=== PATIENT | female | born 1935 | race Caucasian/White ===

== ENCOUNTER 2018-07-08 08:20 | Inpatient (IN) | payer MEDICARE ==
[2018-07-08 08:47] LABS: #Basophils 0.1 thou/uL (0.0-0.2); #Lymphocytes 0.6 thou/uL (1.20-3.40); #Monocytes 1.4 thou/uL (0.11-0.59); #Neutrophils 15.7 thou/uL (1.40-6.50); %Basophils 0.4 % (0.0-1.0); %Lymphocytes 3.3 % (21.0-51.0); %Monocytes 7.8 % (0.0-10.0); %Neutrophils 88.5 % (42.0-75.0); Mean Corpuscular HGB CONC 31.9 g/dL (32.0-36.0); Mean Corpuscular Hemoglobin 30.1 pg (27.0-31.0); Mean Corpuscular Volume 94.3 fL (78.0-98.0); Mean Platelet Volume 7.6 fL (7.4-10.4); Platelet Count 237 thou/uL (130-400); RBC Distribution Width 11.2 % (11.5-14.5); Red Blood Cell (RBC) Count 4.98 mill/uL (4.20-5.40); White Blood Cell (WBC) Count 17.7 thou/uL (4.8-10.8)
[2018-07-08] MEDS ORDERED: HYDROcodone/Acetaminophen 5/325 mg Tablet ONE (09:12)
[2018-07-08 09:19] LABS: CKMB 2.3 ng/mL (0-6.6); Troponin I Less than 0.010 ng/mL (< 0.028)
--- NOTE | 2018-07-08 09:21 | RAD ---
FRONTAL VIEW CHEST: INDICATION: Cough. FINDINGS: Lungs are hyperinflated. There is diffuse interstitial prominence as well as patchy opacity of the l ower lung zones. Mild left pleural effusion is present. There is enlargement of the cardiac silhoue tte and pulmonary vasculature. Reference is made to 09/17/2011 and 02/05/2015 chest radiographs. IMPRESSION: 1. Findings favor bilateral pneumonia, notably at the lower lung zones, with an associated small lef t pleural effusion. Recommend followup with 2-view chest to confirm resolution. 2. Chronic obstructive pulmonary disease. POS: [facility]
[2018-07-08] MEDS ORDERED: Acetaminophen 500 MG TAB ONE (09:23)
[2018-07-08 09:47] LABS: ALT (SGPT) 60 U/L (8-55); AST (SGOT) 78 U/L (5-34); Alkaline Phosphatase 110 U/L (40-150); Anion Gap 15 mmol/L (10-20); BUN (Urea Nitrogen) 11 mg/dL (9.8-20.1); Bilirubin, Total 1.1 mg/dL (0.2-1.2); Calc. Creatinine Clearance 0 mL/min (70-130); Carbon Dioxide 29 mmol/L (23-31); Chloride 90 mmol/L (98-107); Estimated GFR-MDRD 75; Globulin 3.8 g/dL (2.4-3.5); Glucose 109 mg/dL (83-110); Potassium 4.4 mmol/L (3.5-5.1); Protein, Total 7.8 g/dL (6.0-8.3); Sodium 130 mmol/L (136-145)
[2018-07-08] MEDS ORDERED: Albuterol Sulfate 2.5 mg/3 ml Neb ONE (09:55)
[2018-07-08] MEDS ORDERED: Amlodipine 5 MG TAB PO PRN (11:29)
[2018-07-08] MEDS ORDERED: Guaifenesin DM 100-10/5 ML UDCUP PO PRN (11:29)
[2018-07-08 12:38] LABS: Troponin I Less than 0.010 ng/mL (< 0.028)
--- NOTE | 2018-07-08 15:08 | HP ---
REASON FOR ADMISSION: Chronic obstructive pulmonary disease exacerbation, atrial fibrillation with rapid ventricular response. HISTORY OF PRESENT ILLNESS: The patient gives history of cough with expectoration of yellow sputum, which started around 3 weeks back. This has turned into green. She started developing severe shortness of breath. The patient is also feeling cold sweats and fever. As this was ongoing, the patient got concerned, hence came to emergency room. No complaints of chest pain. On arrival, the patient was found to be in atrial fibrillation with RVR. She has known history of atrial fibrillation. She is on home oxygen, 2 liters. The patient also takes albuterol nebulization 4 times daily at home. Of late, she is not following up with any electronic security specialist, as her electronic security specialist retired. PAST MEDICAL AND SURGICAL HISTORY: Last hospitalization was in 2011; hypertension; chronic atrial fibrillation; COPD, which is oxygen dependent; history of coronary artery disease with catheterization done in 03/[address] Ward; hemorrhoidectomy; rhinoplasty; hysterectomy. CURRENT MEDICATIONS: The patient is on Lasix 20 mg daily, potassium chloride 10 mEq p.o. daily, Eliquis 2.5 mg p.o. twice daily, aspirin 81 mg p.o. daily, metoprolol 12.5 mg twice daily, Cartia extended release 240 mg p.o. daily, CoQ10 200 mg p.o. daily, magnesium 400 mg p.o. daily, Probiotic daily. ALLERGIES: Allergic to ALENDRONATE, ATORVASTATIN, CODEINE, LIDOCAINE, PENICILLIN, PRAVASTATIN, and ADHESIVES. PERSONAL HISTORY: Quit smoking in 2017, has smoked for nearly 50 years. Does not abuse alcohol or drugs. Lives with her . FAMILY HISTORY: Mother at the age of 92 years from old age/natural causes. Father at the age of 61 years. He has had [place]. The patient lives with her with whom she is for nearly 66 years now. CODE STATUS: FULL. The patient has a living will. Power of collections attorney is her and her daughter. REVIEW OF SYSTEMS: The following complete review of systems was negative, unless otherwise mentioned in the HPI or below: Constitutional: Weight loss or gain, ability to conduct usual activities. Skin: Rash, itching. Eyes: Double vision, pain. ENT/Mouth: Nose bleeding, neck stiffness, pain, tenderness. Cardiovascular: Palpitations, dyspnea on exertion, orthopnea. Respiratory: Shortness of breath, wheezing, cough, hemoptysis, fever, or night sweats. Gastrointestinal: Poor appetite, abdominal pain, heartburn, nausea, vomiting, constipation, or diarrhea. Genitourinary: Urgency, frequency, dysuria, nocturia. Musculoskeletal: Pain, swelling. Neurologic/Psychiatric: Anxiety, depression. Allergy/Immunologic: Skin rash, bleeding tendency. PHYSICAL EXAMINATION: GENERAL: The patient is an 82-year-old female, who is currently in mild respiratory distress. VITAL SIGNS: Blood pressure 134/76, pulse 94 per minute, respiratory rate 36 per minute, temperature 97.8 degrees Fahrenheit, saturating 91% on room air. NECK: Supple, no elevated JVD. HEENT: Eyes, extraocular muscles intact. Pupils reacting to light. Oral cavity mucous membranes are dry. No exudates or congestion. CARDIOVASCULAR SYSTEM: S1 and S2 heard. Irregular rhythm. RESPIRATORY SYSTEM: Air entry 1+ bilateral. Scattered wheezes plus bilateral, rales plus in the basal area. ABDOMEN: Soft, bowel sounds heard. No tenderness, rigidity, or guarding. EXTREMITIES: No peripheral edema or calf tenderness. VASCULAR SYSTEM: Peripheral pulses 1+ bilateral, no ischemic ulcerations or gangrene. CENTRAL NERVOUS SYSTEM: No gross focal deficits noted. Patient is alert, awake , oriented well. PSYCHIATRIC SYSTEM: The patient's mood is euthymic. No hallucinations or delusions. LABORATORY AND X-RAY FINDINGS: EKG done shows atrial fibrillation with RVR at 101 beats per minute. There are questionable Q-waves seen in V1, V2, V3. EKG overall is a poor-quality EKG. White count of 17, H and H 15 and 47, platelet count 237, MCV is 94 with 88% neutrophils. Sodium 130, serum chloride 90, BUN 11, creatinine 0.7, serum glucose 109, AST 78, ALT 60, alkaline phosphatase 110 , total bilirubin 1.1. Troponin x2 negative. CK-MB 2.3. BNP is 331. Influenza A and B antigens are negative. Chest x-ray done shows possible bilateral pneumonia in the lower lung zones with small left pleural effusion, signs of COPD seen. CLINICAL IMPRESSION AND PLAN: The patient will be admitted to telemetry for chronic obstructive pulmonary disease exacerbation, atrial fibrillation with rapid ventricular response with known history of chronic atrial fibrillation and possible mild congestive heart failure exacerbation with diastolic dysfunction. She will be on Levaquin 500 mg IV daily along with Solu-Medrol 20 mg IV q.8 hourly and DuoNeb q.6 hourly. We will split her Cardizem to Cardizem- CD 120 mg twice daily and continue aspirin, Eliquis, Norvasc as before. Lopressor will be 25 mg twice daily. We will place her on home dose of Lasix 20 mg daily as well. Echocardiogram with 2D Doppler for left ventricular function will be obtained and pulmonary consultation with Dr. Snowden, who is project production engineer, and cardiology consultation with Dr. Brown will be obtained. Patient's functional status is good and does not use any ambulatory devices at home. She is cachectic lady with weighing nearly 43-44 kilos and has been progressively losing weight per patient. The patient likely has end-stage chronic obstructive pulmonary disease, which is oxygen dependent. She has smoked most of her life. The patient initially wanted to be a DNR, but changed her mind after talking to her daughter at bedside. She apparently has a living will and we will try to obtain the same. JOE
[2018-07-08] MEDS ORDERED: Sodium Chloride 0.9% 10 ML ONE ×2 (15:35→17:38)
[2018-07-08 16:05] LABS: Troponin I Less than 0.010 ng/mL (< 0.028)
[2018-07-08] MEDS: Acetaminophen 325 MG TAB PO PRN (17:57)
[2018-07-08] MEDS: cefTRIAXone\\ROCEPHIN 2 GM in Sodium Chloride 0.9% 100 ML IVPB SCH (18:07)
--- NOTE | 2018-07-08 18:22 | CON ---
DATE OF CONSULTATION: 07/08/2018 HISTORY: Ms. Zamora is a very pleasant woman who says she has been feeling poorly for 3 weeks. She said she had green and yellow drainage out of her nose. Eventually, it just started moving down into her chest. Her primary care physician called in a Z-Sal last week which did not help at all. The Z- Sal was also called in for her spouse who improved after the Z-Sal. She has a history of COPD and has been followed by Dr. Whatley [facility]. She also has a history of atrial fibrillation and coronary artery disease followed by Dr. Ward. PAST MEDICAL HISTORY: 1. Otherwise remarkable for chronic respiratory failure on home oxygen. 2. Hemorrhoidectomy. 3. Rhinoplasty. 4. Hysterectomy. SOCIAL HISTORY: She quit smoking only last year. She is not a drinker. She has been for many years. Her is in the room with her daughter. ALLERGIES: She reports allergies to FOSAMAX, ATORVASTATIN, CODEINE, LIDOCAINE, PENICILLIN, PRAVASTATIN. FAMILY HISTORY: Positive for longevity in her mother. Father with coronary artery disease in his 60s. REVIEW OF SYSTEMS: Ten point review of systems completed, otherwise negative. She had purulent bloody nasal discharge, but has not had any hemoptysis. She denies pleurisy. PHYSICAL EXAMINATION: VITAL SIGNS: On exam, she is afebrile, heart rates have has been 97-106, afternoon respiratory rates in the teens. Oximetry is 90% on 2 liter cannula. Blood pressure 137/76. GENERAL: She appears her age. HEENT: Her pupils are equal. Sclerae anicteric. NECK: Supple. LUNGS: Remarkable for distant breath sounds. She has crackles at her left base laterally than her right. HEART: Irregularly irregular. ABDOMEN: Soft and nontender. EXTREMITIES: Without clubbing, cyanosis or edema. LABORATORY AND X-RAY FINDINGS: Chest radiograph shows bibasilar alveolar infiltrates, a little more prominent on the right. White count 17.7, hemoglobin 15, platelets 237,000. Sodium 130, potassium 4.4, chloride 90, bicarbonate 29, BUN 11, creatinine 0.7, AST 78, ALT 60. IMPRESSION: 1. Community-acquired pneumonia. 2. Underlying chronic obstructive pulmonary disease. 3. Chronic respiratory failure on oxygen at home. She appears comfortable at this time. 4. Atrial fibrillation on Cardizem and Eliquis prior to admission, she is on a low dose of Eliquis. PLAN: I would broaden her antimicrobial coverage. I agree with steroids. Nebulizer treatments probably should be given every 4 hours while she is awake, hopefully to facilitate secretion clearance. This is a 50-minute consult, with greater than 50% of the time was spent on the unit coordinating care. Enjoyed my visit with the patient and her family. JOE
[2018-07-08] MEDS: Famotidine 20 MG TAB PO SCH (20:56)
[2018-07-08] MEDS: Apixaban 2.5 MG TAB PO SCH (20:56)
[2018-07-08] MEDS: Metoprolol Tartrate 25 MG TAB PO SCH (20:56)
--- NOTE | 2018-07-09 01:03 | CON ---
DATE OF CONSULTATION: 07/08/2018 HISTORY OF PRESENT ILLNESS: Nicolasa Zamora is a pleasant 82-year-old white female who was seen by Dr. Burgos in 08/2011. She was admitted with increased palpitations and atrial fibrillation with fast ventricular response. She was found to be hyperthyroid during that admission and also had COPD exacerbation. She was sent home on metoprolol 100 twice a day and propylthiouracil. She was followed up with Dr. Burgos in the office and the last time she was seen there was in 2012. She apparently has seen Dr. Ward. She now presents complaining of 3 weeks of nasal drainage with yellow-green phlegm as well as cough with yellow-green sputum. She then started to develop severe shortness of breath, diaphoresis, fever, and ultimately came to the emergency room. She was found to be in atrial fibrillation. She is on home O2 at 2 liters. PAST MEDICAL HISTORY: Hypertension, chronic atrial fibrillation, COPD, oxygen dependent. She apparently had a cardiac catheterization by Dr. Ward on 2016. OPERATIONS: Hemorrhoidectomy, rhinoplasty and hysterectomy. MEDICATIONS: ProAir 2 puffs q.6 hours p.r.n., Eliquis 2.5 b.i.d., aspirin 81 daily, diltiazem 140 mg q.p.m., furosemide 20 q.a.m., magnesium oxide 2 tablets daily, metoprolol 12.5 b.i.d., potassium chloride one tablet daily and CoQ10 200 mg daily. ALLERGIES: FOSAMAX, LIPITOR, PENICILLIN, PRAVASTATIN, CANS and ADHESIVES. SOCIAL HISTORY: She stopped smoking in 2016. She does not use alcohol. FAMILY HISTORY: Father had myocardial infarction. REVIEW OF SYSTEMS: Twelve point review of systems otherwise unremarkable. PHYSICAL EXAMINATION: VITAL SIGNS: 137/76, pulse 101 and irregularly irregular. HEENT: PERRL. NECK: Supple. CHEST: Reveals expiratory wheezing. CARDIAC: S1 and S2 are normal, without any S3, S4 or murmurs. ABDOMEN: Normal bowel sounds, without tenderness or organomegaly. EXTREMITIES: Revealed no clubbing, cyanosis or edema. NEUROLOGIC: Grossly intact. SKIN: Warm and dry. LABORATORY DATA AND IMAGING DATA: EKG revealed atrial fibrillation with rapid ventricular response of 101 per minute with anteroseptal infarction. White count 17,700, hemoglobin 15.0, hematocrit 47.0, platelets 237,000. Sodium 130, potassium 4.4, chloride 90, carbon dioxide 29, BUN 11, creatinine 0.74. Cardiac enzymes x3 are normal. AST 78, ALT 60. BNP 331.8. Chest x-ray revealed evidence of COPD and bilateral pneumonia. IMPRESSION: 1. Pneumonia, community acquired. 2. Chronic atrial fibrillation. 3. Hypertension. 4. Coronary artery disease on catheterization. PLAN: Patient will be continued on her usual medications. Certainly may require supplemental medicines for better rate control. Echocardiogram will be performed to evaluate left ventricular function. MTDD
[2018-07-09 05:12] LABS: Anion Gap 12 mmol/L (10-20); BUN (Urea Nitrogen) 10 mg/dL (9.8-20.1); Calc. Creatinine Clearance 51 mL/min (70-130); Calcium 8.8 mg/dL (7.8-10.44); Carbon Dioxide 24 mmol/L (23-31); Chloride 95 mmol/L (98-107); Estimated GFR-MDRD Greater than 90; Glucose 131 mg/dL (83-110); Potassium 4.7 mmol/L (3.5-5.1); Sodium 126 mmol/L (136-145)
[2018-07-09 05:13] LABS: #Lymphocytes 0.4 thou/uL (1.20-3.40); #Monocytes 0.3 thou/uL (0.11-0.59); #Neutrophils 11.1 thou/uL (1.40-6.50); %Eosinophils 0.1 % (0.0-10.0); %Lymphocytes 3.8 % (21.0-51.0); %Monocytes 2.3 % (0.0-10.0); %Neutrophils 93.8 % (42.0-75.0); Hemoglobin 12.7 g/dL (12.0-16.0); Mean Corpuscular HGB CONC 30.1 g/dL (32.0-36.0); Mean Corpuscular Hemoglobin 29.3 pg (27.0-31.0); Mean Corpuscular Volume 97.3 fL (78.0-98.0); Mean Platelet Volume 7.3 fL (7.4-10.4); Platelet Count 246 thou/uL (130-400); RBC Distribution Width 11.2 % (11.5-14.5); Red Blood Cell (RBC) Count 4.34 mill/uL (4.20-5.40); White Blood Cell (WBC) Count 11.8 thou/uL (4.8-10.8)
[2018-07-09] MEDS ORDERED: Furosemide 20 MG TAB PO SCH (09:00)
[2018-07-09] MEDS: Apixaban 2.5 MG TAB PO SCH ×2 (09:11→22:00)
[2018-07-09] MEDS: Metoprolol Tartrate 25 MG TAB PO SCH ×2 (09:12→22:01)
[2018-07-09] MEDS: Famotidine 20 MG TAB PO SCH ×2 (09:12→22:02)
[2018-07-09] MEDS: Levofloxacin 750 mg/D5W 500 MG in Premix Bag 1 BAG IVPB SCH (09:13)
--- NOTE | 2018-07-09 11:00 | PRG ---
DATE OF SERVICE: 07/09/2018 Ms. Zamora says she feels much better. PHYSICAL EXAMINATION: VITAL SIGNS: She is afebrile, heart rate 95, respiratory rate is 18, oximetry is 94 on 2 liters, blo od pressure 105/61. LUNGS: Lungs were remarkable for faint wheezes. HEART: Regular rhythm. ABDOMEN: Soft. LABORATORY DATA: White count 11.8, hemoglobin 12.7, platelets 246. Sodium 126, potassium 4.7, chlor pao 95, BUN 10, creatinine 0.59. IMPRESSION: 1. Community-acquired pneumonia, likely after a viral illness. 2. Hyponatremia. Her Lasix should be held. A TSH should be checked if this has not been done. Most likely this is SIADH associated with pneumonia. She needs to be fluid restricted if her sodium remains low.
--- NOTE | 2018-07-09 11:36 | PDOC.PN ---
- Subjective Encounter Start Date: 07/09/18 Encounter Start Time: 09:35 Subjective: sob is better, no palpitations or chest pain -: ate her breakfast, says the portion was too much - Objective Resuscitation Status: Resuscitation Status FULL:Full Resuscitation MAR Reviewed: Yes Vital Signs & Weight: Vital Signs (12 hours) Temp Pulse Resp BP Pulse Ox 07/09/18 09:11 95 07/09/18 08:57 98.3 F 18 105/61 94 L 07/09/18 07:41 100 16 92 L 07/09/18 04:00 97.3 F L 96 18 138/63 100 07/09/18 00:00 95 18 108/54 L 100 Weight Weight 105 lb 4.8 oz I&O: 07/08/18 07/09/18 07/10/18 06:59 06:59 06:59 Intake Total 1210 Output Total 650 Balance 560 Result Diagrams: 07/09/18 04:48 07/09/18 04:48 Phys Exam - Physical Examination HEENT: PERRLA, sclera anicteric Neck: no JVD, supple Respiratory: no wheezing rhonchi+ Cardiovascular: no significant murmur, irregular Gastrointestinal: soft, no distention, positive bowel sounds Musculoskeletal: no edema, pulses present Neurological: non-focal, moves all 4 limbs Psychiatric: normal affect, A&O x 3 Dx/Plan (1) PNA (pneumonia) Code(s): J18.9 - PNEUMONIA, UNSPECIFIED ORGANISM Status: Acute Qualifiers: Pneumonia type: due to unspecified organism Laterality: bilateral Lung location: lower lobe of lung Qualified Code(s): J18.1 - Lobar pneumonia, unspecified organism (2) COPD exacerbation Code(s): J44.1 - CHRONIC OBSTRUCTIVE PULMONARY DISEASE W (ACUTE) EXACERBATION Status: Acute Comment: is on home oxygen (3) Atrial fibrillation with RVR Code(s): I48.91 - UNSPECIFIED ATRIAL FIBRILLATION Status: Acute (4) HTN (hypertension) Code(s): I10 - ESSENTIAL (PRIMARY) HYPERTENSION Status: Chronic Qualifiers: Hypertension type: essential hypertension Qualified Code(s): I10 - Essential (primary) hypertension - Plan is on oral cardizem cd bid, asp, eliquis -: levaquin and ceftriaxone, nebs, steroids -: PT to mobilize as tolerated -: off lasix, echo pending -: hemostable, clinically pt is doing better * . Review of Systems - Medications/Allergies Allergies/Adverse Reactions: Allergies Allergy/AdvReac Type Severity Reaction Status Date / Time alendronate sodium Allergy Verified 03/17/15 14:42 [From Fosamax] atorvastatin calcium Allergy Verified 03/17/15 14:42 [From Lipitor] penicillin Allergy Verified 03/17/15 14:42 pravastatin Allergy Verified 03/17/15 14:42 "Ranjeet" Allergy Uncoded 03/17/15 14:42 Adhesives Allergy Uncoded 03/17/15 14:42 Medications: Current Medications Acetaminophen (Tylenol) 650 mg PO Q4H PRN PRN Reason: Headache/Fever/Mild Pain (1-3) Last Admin: 07/08/18 17:57 Dose: 650 mg Albuterol/Ipratropium (Duoneb) 3 ml NEB [id number] [facility] Last Admin: 07/09/18 07:41 Dose: 3 ml Apixaban (Eliquis) 2.5 mg PO BID [facility] Last Admin: 07/09/18 09:11 Dose: 2.5 mg Aspirin (Aspirin Chewable) 81 mg PO DAILY [facility] Last Admin: 07/09/18 09:12 Dose: 81 mg Diltiazem HCl (Cardizem Cd) 120 mg PO BID [facility] Last Admin: 07/09/18 09:11 Dose: 120 mg Famotidine (Pepcid) 20 mg PO BID [facility] Last Admin: 07/09/18 09:12 Dose: 20 mg Guaifenesin/Dextromethorphan (Robitussin Dm) 15 ml PO Q4H PRN PRN Reason: Cough Levofloxacin 500 mg/ Device 100 mls @ 100 mls/hr IVPB 0900 [facility] Last Admin: 07/09/18 09:13 Dose: 100 mls Ceftriaxone Sodium 2 gm/ (Sodium Chloride) 100 mls @ 200 mls/hr IVPB Q24HR [facility] Last Admin: 07/08/18 18:07 Dose: 100 mls Methylprednisolone Sodium Succinate (Solu-Medrol) 20 mg IVP Q8HR [facility] Last Admin: 07/09/18 05:30 Dose: 20 mg Metoprolol Tartrate (Lopressor) 25 mg PO BID [facility] Last Admin: 07/09/18 09:12 Dose: 25 mg Sodium Chloride (Flush - Normal Saline) 10 ml IVF Q12HR [facility] Last Admin: 07/09/18 09:13 Dose: 10 ml Sodium Chloride (Flush - Normal Saline) 10 ml IVF PRN PRN PRN Reason: Saline Flush
[2018-07-09 14:23] LABS: Legionella Urinary Ag Negative (Negative); Strep pneumo Urine Ag NEGATIVE (NEGATIVE)
[2018-07-09] MEDS: cefTRIAXone\\ROCEPHIN 2 GM in Sodium Chloride 0.9% 100 ML IVPB SCH (18:00)
[2018-07-09] MEDS: Acetaminophen 325 MG TAB PO PRN (22:00)
[2018-07-10] MEDS: Apixaban 2.5 MG TAB PO SCH (08:24)
[2018-07-10] MEDS: Famotidine 20 MG TAB PO SCH (08:25)
[2018-07-10] MEDS: Metoprolol Tartrate 25 MG TAB PO SCH (08:25)
[2018-07-10] MEDS: Levofloxacin 750 mg/D5W 500 MG in Premix Bag 1 BAG IVPB SCH (08:25)
[2018-07-10 09:52] LABS: #Basophils 0.1 thou/uL (0.0-0.2); #Lymphocytes 0.2 thou/uL (1.20-3.40); #Monocytes 0.4 thou/uL (0.11-0.59); %Basophils 0.5 % (0.0-1.0); %Lymphocytes 2.2 % (21.0-51.0); %Monocytes 3.3 % (0.0-10.0); Hemoglobin 12.1 g/dL (12.0-16.0); Mean Corpuscular HGB CONC 31.3 g/dL (32.0-36.0); Mean Corpuscular Hemoglobin 30.1 pg (27.0-31.0); Mean Corpuscular Volume 96.3 fL (78.0-98.0); Platelet Count 299 thou/uL (130-400); RBC Distribution Width 11.2 % (11.5-14.5); Red Blood Cell (RBC) Count 4.03 mill/uL (4.20-5.40); White Blood Cell (WBC) Count 10.6 thou/uL (4.8-10.8)
[2018-07-10 10:17] LABS: ALT (SGPT) 83 U/L (8-55); AST (SGOT) 81 U/L (5-34); Albumin 3.1 g/dL (3.4-4.8); Alkaline Phosphatase 71 U/L (40-150); Anion Gap 11 mmol/L (10-20); BUN (Urea Nitrogen) 11 mg/dL (9.8-20.1); Bilirubin, Total 0.3 mg/dL (0.2-1.2); Calc. Creatinine Clearance 46 mL/min (70-130); Calcium 8.8 mg/dL (7.8-10.44); Carbon Dioxide 33 mmol/L (23-31); Chloride 89 mmol/L (98-107); Estimated GFR-MDRD 87; Globulin 2.7 g/dL (2.4-3.5); Glucose 153 mg/dL (83-110); Potassium 4.4 mmol/L (3.5-5.1); Protein, Total 5.8 g/dL (6.0-8.3); Sodium 129 mmol/L (136-145)
[2018-07-10 10:40] LABS: Free T4 (Free Thyroxine) 0.94 ng/dL (0.70-1.48); Thyroid Stimulating Hormone 0.1458 uIU/mL (0.35-4.94)
--- NOTE | 2018-07-10 12:20 | PDOC.PN ---
- Subjective Encounter Start Date: 07/10/18 Encounter Start Time: 09:00 Subjective: breathing better, no palp -: has amb well with PT - Objective Resuscitation Status: Resuscitation Status FULL:Full Resuscitation MAR Reviewed: Yes Vital Signs & Weight: Vital Signs (12 hours) Temp Pulse Resp BP BP Pulse Ox 07/10/18 10:42 75 16 07/10/18 08:25 109 H 133/62 07/10/18 08:22 97.9 F 109 H 18 133/62 97 07/10/18 07:02 88 16 07/10/18 04:00 97.6 F 83 21 H 108/59 L 92 L Weight Admit Weight 100 lb 8 oz Weight 99 lb 8 oz I&O: 07/09/18 07/10/18 07/11/18 06:59 06:59 06:59 Intake Total 1210 1640 Output Total 650 1101 Balance 560 539 Result Diagrams: 07/10/18 09:36 07/10/18 09:36 Phys Exam - Physical Examination HEENT: PERRLA, moist MMs Neck: no JVD, supple Respiratory: no wheezing, no rales rhonchi++ Cardiovascular: no significant murmur, irregular Gastrointestinal: soft, non-tender, positive bowel sounds Musculoskeletal: no edema, pulses present Neurological: non-focal, moves all 4 limbs Psychiatric: normal affect, A&O x 3 Dx/Plan (1) PNA (pneumonia) Code(s): J18.9 - PNEUMONIA, UNSPECIFIED ORGANISM Status: Acute Qualifiers: Pneumonia type: due to unspecified organism Laterality: bilateral Lung location: lower lobe of lung Qualified Code(s): J18.1 - Lobar pneumonia, unspecified organism (2) COPD exacerbation Code(s): J44.1 - CHRONIC OBSTRUCTIVE PULMONARY DISEASE W (ACUTE) EXACERBATION Status: Acute Comment: is on home oxygen (3) Atrial fibrillation with RVR Code(s): I48.91 - UNSPECIFIED ATRIAL FIBRILLATION Status: Chronic Comment: rate controlled (4) HTN (hypertension) Code(s): I10 - ESSENTIAL (PRIMARY) HYPERTENSION Status: Chronic Qualifiers: Hypertension type: essential hypertension Qualified Code(s): I10 - Essential (primary) hypertension - Plan is on ceftriaxone and levaquin, nebs, steroids -: asp, cardizem cd and eliquis -: hemostable -: clinically is slowly getting better -: has siadh, thyroid labs reviewed * . Review of Systems - Medications/Allergies Allergies/Adverse Reactions: Allergies Allergy/AdvReac Type Severity Reaction Status Date / Time alendronate sodium Allergy Verified 03/17/15 14:42 [From Fosamax] atorvastatin calcium Allergy Verified 03/17/15 14:42 [From Lipitor] penicillin Allergy Verified 03/17/15 14:42 pravastatin Allergy Verified 03/17/15 14:42 "Ranjeet" Allergy Uncoded 03/17/15 14:42 Adhesives Allergy Uncoded 03/17/15 14:42 Medications: Current Medications Acetaminophen (Tylenol) 650 mg PO Q4H PRN PRN Reason: Headache/Fever/Mild Pain (1-3) Last Admin: 07/09/18 22:00 Dose: 650 mg Albuterol/Ipratropium (Duoneb) 3 ml NEB [id number] [facility] Last Admin: 07/10/18 10:42 Dose: 3 ml Apixaban (Eliquis) 2.5 mg PO BID [facility] Last Admin: 07/10/18 08:24 Dose: 2.5 mg Aspirin (Aspirin Chewable) 81 mg PO DAILY [facility] Last Admin: 07/10/18 08:25 Dose: 81 mg Diltiazem HCl (Cardizem Cd) 120 mg PO BID [facility] Last Admin: 07/10/18 08:25 Dose: 120 mg Famotidine (Pepcid) 20 mg PO BID [facility] Last Admin: 07/10/18 08:25 Dose: 20 mg Guaifenesin/Dextromethorphan (Robitussin Dm) 15 ml PO Q4H PRN PRN Reason: Cough Levofloxacin 500 mg/ Device 100 mls @ 100 mls/hr IVPB 0900 [facility] Last Admin: 07/10/18 08:25 Dose: 100 mls Ceftriaxone Sodium 2 gm/ (Sodium Chloride) 100 mls @ 200 mls/hr IVPB Q24HR [facility] Last Admin: 07/09/18 18:00 Dose: 100 mls Methylprednisolone Sodium Succinate (Solu-Medrol) 20 mg IVP Q8HR [facility] Last Admin: 07/10/18 06:06 Dose: 20 mg Metoprolol Tartrate (Lopressor) 25 mg PO BID [facility] Last Admin: 07/10/18 08:25 Dose: 25 mg Sodium Chloride (Flush - Normal Saline) 10 ml IVF Q12HR [facility] Last Admin: 07/10/18 08:27 Dose: 10 ml Sodium Chloride (Flush - Normal Saline) 10 ml IVF PRN PRN PRN Reason: Saline Flush
[2018-07-10 13:00] VITALS: BMI 16.5
--- NOTE | 2018-07-10 13:27 | PQF ---
CLINICAL DOCUMENTATION IMPROVEMENT CLARIFICATION FORM: ICD-10 Updated PLEASE DO AN ADDENDUM TO THE PROGRESS NOTE WITH ANY DOCUMENTATION UPDATES OR ADDITIONS AND CARRY THROUGH TO DC SUMMARY. THANK YOU. Date: 07/10/18 ATTN: Dr. Bush Please exercise your independent, professional judgment in responding to the clarification form. Clinical indicators are provided on the bottom of this form for your review Please check appropriate box(s): [x ] Protein Calorie Malnutrition: [ ] Mild [ x ] Moderate [ ] Severe [ ] Other Malnutrition [ ] Underweight without malnutrition [ ] Cachexia [ ] Other diagnosis [ ] Unable to determine In addition, please specify: Present on Admission (POA): [ x ] Yes [ ] No [ ] Unable to determine CLINICAL INDICATORS - SIGNS / SYMPTOMS / LABS H&P 07/08: She is cachectic lady with weighing nearly 43-44 kilos and has been progressively losing weight for pt. Data Entry Email Processor Assessment 07/09: Suboptimal Oral Intake r/t decreased appetite. As evidenced by: Inadequate PO intake x1 yr, 14% weight loss in 1 yr RISKS: H&P 07/08: 82 yo. Admitted for COPD exacerbation. Atrial fibrillation with RVR. TREATMENT: Data Entry Email Processor Assessment triggered for WTL / PO / BMI 16.7 Order 07/09: Supplement: Ensure Enlive BID Moderate Malnutrition (in acute illness) Energy Intake: <75% of estimated energy requirement for > 7 days Weight Loss: 1-2%/1 week; 5%/ 1 month; 7.5%/3 months Other: mild body fat loss; mild muscle mass loss; mild fluid accumulation; Severe Malnutrition (in acute illness) Energy Intake: < 50% of estimated energy requirement for > 5 days Weight Loss: >1-2%/1 week; >5%/1 month; >7.5%/3 months Other: moderate body fat loss; moderate muscle mass loss; moderate- severe fluid accumulation; measurably reduced needle board repairer strength Moderate Malnutrition (in chronic illness) Energy Intake: <75% of estimated energy requirement for >1 month Weight Loss: 5%/1 month; 7.5%/3 months; 10%/6 months; 20%/1 year Other: mild body fat loss; mild muscle mass loss; mild fluid accumulation Severe Malnutrition (in chronic illness) Energy Intake: <75% of estimated energy requirement for >1 month Weight Loss: >5%/1 month; >7.5%/3 months; >10%/6 months; >20%/1 year Other: severe body fat loss; severe muscle mass loss; severe fluid accumulation; measurably reduced needle board repairer strength Thank you, Ashwini (This form is maintained as a part of the permanent medical record) 2015 [employer] All Rights Reserved Ashwini Burks RN, BSN [email or web address] Office: [phone] [facility]IC[facility]arcel[facility]
--- NOTE | 2018-07-10 13:43 | PRG ---
DATE OF SERVICE: 07/10/2018 Ms. Zamora says she is feeling better. She says she feels 100% better than she did 3 days ago. PHYSICAL EXAMINATION: VITAL SIGNS: She is afebrile, heart rate 75, respiratory rate 16, blood pressure 133/62. She is wea ring a 2 liter cannula. Oximetry is 97%. LUNGS: Lungs are clear. She is not wheezing anymore. HEART: Irregular rhythm. ABDOMEN: Soft and nontender. EXTREMITIES: Without asymmetry. LABORATORY DATA: White count 10.6, hemoglobin 12.1, platelets 299. Sodium 129, potassium 4.4, chlor pao 89, bicarbonate 33, BUN 11, creatinine 0.6. IMPRESSION: 1. Pneumonia, community acquired. 2. 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 This has im proved. Her sodium is 129 today. 3. Mild elevation of liver enzymes of unclear etiology. 4. Hypoalbuminemia. 5. Underlying chronic obstructive pulmonary disease on oxygen at home. She is probably a candidate to go home with close outpatient followup. I will switch her to p.o. med ications. She is chronically in atrial fibrillation. Her rate, at least at the time I examined her, this morning seemed to be well controlled.
[2018-07-10 16:09] VITALS: BP 104/55; TEMP 97.8
[2018-07-10] MEDS ORDERED: Cefdinir 300 MG CAP PO SCH (21:00)
--- NOTE | 2018-07-10 21:57 | DIS ---
DATE OF ADMISSION: 07/08/2018 DATE OF DISCHARGE: 07/10/2018 DISCHARGE DISPOSITION: To home. PRIMARY DISCHARGE DIAGNOSES: Acute chronic obstructive pulmonary disease exacerbation with pneumonia, resolving; atrial fibrillation with rapid ventricular rate due to chronic obstructive pulmonary disease exacerbation, which is rate controlled. SECONDARY DISCHARGE DIAGNOSIS: Hypertension. PROCEDURES DONE DURING HOSPITALIZATION: Patient had chest x-ray done on the day of admission, which showed bilateral pneumonia in the lower lung zones, signs of chronic obstructive pulmonary disease. Blood cultures x2, no growth. Respiratory culture grew normal deejay. Influenza A and B antigens were negative. Had a white count of 17 on the day of admission with discharge numbers of 10. Free T3 of 1.37, free T4 of 0.9. TSH 0.14. BNP 331. Troponin x3 negative. Sodium level ranged from 126-130. DISCHARGE MEDICATIONS: Eliquis 2.5 mg p.o. twice daily, aspirin 81 mg p.o. daily, DuoNebs q.6 hourly, Cardizem-CD 240 mg p.o. daily, Lasix 20 mg p.o. daily , probiotic 1 capsule daily, magnesium oxide 400 mg p.o. daily, Lopressor 12.5 mg p.o. twice daily, potassium chloride 10 mEq p.o. daily, CoQ10 200 mg p.o. daily, Omnicef 300 mg p.o. twice daily for a period of 5 days, prednisone tapering dose starting at 10 mg [address] Snowden's advice. ALLERGIES: ALENDRONATE, ATORVASTATIN, PENICILLIN, and ADHESIVES. INPATIENT CONSULTS: Dr. Snowden for pulmonology. DISCHARGE PLAN: Patient is to follow up with Dr. Snowden in 2-3 weeks and primary care physician in 1 week. BRIEF COURSE DURING HOSPITALIZATION: Patient initially was brought to emergency room with complaints of cough with expectoration of yellow-green sputum. She has had worsening shortness of breath. The patient has known history of oxygen dependent COPD. Initial x-ray was suspicious for pneumonia as well. The patient was placed on broad-spectrum antibiotics. The patient had a rapid ventricular rate with her history of chronic atrial fibrillation due to current COPD exacerbation and increased frequency of nebulizations. Her rate has been adequately controlled during her stay here. The patient's COPD exacerbation and pneumonia are resolving. She was evaluated by Dr. Snowden for Pulmonology and Dr. Nelson for Cardiology. She is hemodynamically stable. She in fact has ambulated nearly 350 feet with physical therapy. She has been cleared for discharge by both Cardiology and Pulmonology. Please see a [id number] documentation on [facility] for the day of discharge. JOE
[2018-07-11] MEDS ORDERED: predniSONE 20 MG TAB PO SCH (08:00)
--- NOTE | 2018-07-11 12:36 | PQF ---
SAP Tiler'S Assistant Crystal Reports Winform ViewerTATIANA KOHLER VINAYA KUMAR MD [id number] CLINICAL DOCUMENTATION CLARIFICATION FORM: POST DISCHARGE Addendum to original discharge summary date: ____ Late entry note date: __ Please exercise your independent, professional judgment in responding to the clarification form. Clinical indicators are provided on the bottom of this form for your review Please check appropriate box(s): HEART FAILURE: A. TYPE: [ ] Systolic / HFrEF [ x] Diastolic / HFpEF [ ] Combined Systolic / Diastolic B. ACUITY [ x ] Acute [ ] Acute on Chronic [ ] Chronic [ ] Other diagnosis [ ] Unable to determine In addition, please specify: Present on Admission (POA): [ x ] Yes [ ] No [ ] Unable to determine For continuity of documentation, please document condition throughout progress notes and discharge summary. Thank You. CLINICAL INDICATORS - SIGNS / SYMPTOMS / LABS POSSIBEL CHF EXAC WITH DIASTOLIC DYSFUNCTION- H&P RISKS: Hypertension TREATMENTS: ECHO LASIX (This form is maintained as a part of the permanent medical record) 2014 [employer]. All Rights Reserved [employer] Tiler'S Assistant Crystal Reports Winform [email or web address] [phone] [email or web address]
== END 2018-07-10 17:27 | disposition home or self-care (01) | DRG 190 ==
LOC: ERS 08:20 → ERHOLD 10:44 → 2NO 13:44
PROVIDERS: ADMIT Internal Medicine; ATTEND Internal Medicine
DX: J44.1 Chronic obstructive pulmonary disease with (acute) exacerbation (principal); J18.1 Lobar pneumonia, unspecified organism; I50.31 Acute diastolic (congestive) heart failure; E44.0 Moderate protein-calorie malnutrition; Z68.1 Body mass index [BMI] 19.9 or less, adult; J96.10 Chronic respiratory failure, unspecified whether with hypoxia or hypercapnia; E22.2 Syndrome of inappropriate secretion of antidiuretic hormone; Z99.81 Dependence on supplemental oxygen; I48.2 Chronic atrial fibrillation; I25.10 Atherosclerotic heart disease of native coronary artery without angina pectoris; F41.9 Anxiety disorder, unspecified; F32.9 Major depressive disorder, single episode, unspecified; I11.0 Hypertensive heart disease with heart failure; E88.09 Other disorders of plasma-protein metabolism, not elsewhere classified; Z88.5 Allergy status to narcotic agent; Z88.0 Allergy status to penicillin; Z88.8 Allergy status to other drugs, medicaments and biological substances; Z87.891 Personal history of nicotine dependence
CPT/HCPCS: 36415; 71045; 80048; 80053; 82553; 83605; 83880; 84439; 84443; 84481; 84484; 85025; 87040; 87070; 87205; 87804; 87899; 93005; 93306; 94640; 96360; 96361; 96365; 96366; G8978-GP-CI; G8979-GP-CI; G8980-GP-CI; J0696; J1956; J2920; J7050; J7611; J7620

== ENCOUNTER 2018-08-02 09:12 | Outpatient (CLI) | payer MEDICARE, OTHER ==
--- NOTE | 2018-08-02 10:33 | RAD ---
CHEST TWO VIEWS: History: Dyspnea. Comparison: 06-28-18 FINDINGS: There is a prominent left nipple shadow. The airspace opacities seen on the prior examinations are mu ch improved as well as the effusions. Bones are osteopenic. Increased AP dimension of the chest. Pulmonary interstitial markings of the lung bases. IMPRESSION: Much improved airspace opacities and effusions and edema from the comparison examination. POS: TPC
== END 2018-08-02 09:13 | disposition home or self-care (01) ==
LOC: RAD 09:12
PROVIDERS: ATTEND Internal Medicine Critical Care Medicine
DX: R06.00 Dyspnea, unspecified (principal); J90 Pleural effusion, not elsewhere classified; J81.1 Chronic pulmonary edema; R91.8 Other nonspecific abnormal finding of lung field
CPT/HCPCS: 71046

== ENCOUNTER 2018-10-29 09:01 | Outpatient (CLI) | payer MEDICARE, OTHER ==
--- NOTE | 2018-10-29 09:24 | RAD ---
TWO VIEWS CHEST: Comparison: 08-02-18 History: Dyspnea. FINDINGS: Two views of the chest shows a normal sized cardiomediastinal silhouette. Hyperexpansion of the lungs and increased interstitial markings may be secondary to COPD. There is no evidence of consolidation, mass, or pleural effusion. IMPRESSION: No evidence of acute cardiopulmonary disease. POS: C
== END 2018-10-29 09:02 | disposition home or self-care (01) ==
LOC: RAD 09:01
PROVIDERS: ATTEND Internal Medicine Critical Care Medicine
DX: R06.00 Dyspnea, unspecified (principal)
CPT/HCPCS: 71046

== ENCOUNTER 2019-01-21 08:43 | Outpatient (CLI) | payer MEDICARE, OTHER ==
--- NOTE | 2019-01-21 10:03 | RAD ---
CHEST 2 VIEWS: Date: 01/21/19 HISTORY: Dyspnea. COMPARISON: 10/29/18. FINDINGS: Bilateral hyperinflation and scattered chronic changes. Heart size is within normal limits. No conflu ent pneumonia, overt edema, or pleural effusion. IMPRESSION: Stable hyperinflation and chronic lung changes. No new process. POS: OFF
== END 2019-01-21 08:44 | disposition home or self-care (01) ==
LOC: RAD 08:43
PROVIDERS: ATTEND Internal Medicine Critical Care Medicine
DX: R06.00 Dyspnea, unspecified (principal); J98.4 Other disorders of lung
CPT/HCPCS: 71046

== ENCOUNTER 2019-06-23 09:19 | Outpatient (CLI) | payer MEDICARE, OTHER ==
--- NOTE | 2019-06-23 09:43 | RAD ---
Exam: Chest 2 views HISTORY:Dyspnea Comparison: 01/21/2019 FINDINGS: Lungs: Hyperinflated lungs with interstitial prominence, redemonstrated. Cardiac silhouette:Stable Pulmonary vessels: Stable in appearance Pleural Spaces: Clear Pneumothorax: None Osseous abnormalities: None of acuity. IMPRESSION: Redemonstration of pulmonary emphysema.
== END 2019-06-23 09:20 | disposition home or self-care (01) ==
LOC: RAD 09:19
PROVIDERS: ATTEND Internal Medicine Critical Care Medicine
DX: R06.00 Dyspnea, unspecified (principal); J43.9 Emphysema, unspecified
CPT/HCPCS: 71046

== ENCOUNTER 2019-10-09 15:32 | Inpatient (IN) | payer MEDICARE, OTHER ==
[2019-10-09] MEDS ORDERED: Albuterol Sulfate 2.5 mg/0.5 ml Neb ONE (16:01)
[2019-10-09 16:10] LABS: Base Excess-Venous 5.7 mmol/L (-2.0 to 3.0); Bicarbonate (HCO3v) 35.3 mmol/L (22.0-28.0); CO2 Tension (PvCO2) 72.3 mmHg (40.0-50.0); Calcium, Ionized 1.05 mmol/L (See Comments:); Chloride 87 mmol/L (98-107); Hemoglobin - Calc 15.6 g/dL (12.0-16.0); Potassium 5.2 mmol/L (3.5-5.1); Sodium 129 mmol/L (138-145); T. Carbon Dioxide 37.5 mmol/L (22.0-28.0); vO2 Saturation-calc 64.6 % (60.0-85.0)
[2019-10-09] MEDS ORDERED: cefTRIAXone\\ROCEPHIN 2 GM VIAL ONE (16:10)
[2019-10-09 16:16] LABS: Mean Corpuscular HGB CONC 32.2 g/dL (32.0-36.0); Mean Corpuscular Hemoglobin 31.4 pg (27.0-31.0); Mean Corpuscular Volume 97.4 fL (78.0-98.0); Mean Platelet Volume 8.1 fL (7.4-10.4); Platelet Count 129 thou/uL (130-400); RBC Distribution Width 11.8 % (11.5-14.5); Red Blood Cell (RBC) Count 4.47 mill/uL (4.20-5.40); White Blood Cell (WBC) Count 4.5 thou/uL (4.8-10.8)
--- NOTE | 2019-10-09 16:25 | RAD ---
Portable frontal chest radiograph: 10/09/2019 COMPARISON: 07/08/2018 HISTORY: Altered mental status FINDINGS: Stable increased linear interstitial density with pulmonary hyperinflation. There is athero sclerotic calcification of the aortic arch and the abdominal aorta. Single lead transvenous pacing device noted on the left. No pneumothorax, focal consolidation, or alveolar edema. IMPRESSION: Interstitial prominence with pulmonary hyperinflation suggesting COPD in the proper clini leandro setting. A mild degree of interstitial pulmonary edema and the lung bases cannot be excluded. No focal consolidation or alveolar edema.
[2019-10-09] MEDS ORDERED: Azithromycin 500 MG in Sodium Chloride 0.9% 250 ML 250 ML IVPB SCH (16:30)
[2019-10-09 16:37] LABS: ALT (SGPT) 21 U/L (8-55); AST (SGOT) 36 U/L (5-34); Alkaline Phosphatase 96 U/L (40-110); Anion Gap 10 mmol/L (10-20); BUN (Urea Nitrogen) 17 mg/dL (9.8-20.1); Bilirubin, Total 0.4 mg/dL (0.2-1.2); Calc. Creatinine Clearance 0 mL/min (70-130); Calcium 9.2 mg/dL (7.8-10.44); Carbon Dioxide 37 mmol/L (23-31); Chloride 89 mmol/L (98-107); Estimated GFR-MDRD 74; Globulin 2.9 g/dL (2.4-3.5); Glucose 108 mg/dL (83-110); Potassium 5.2 mmol/L (3.5-5.1); Protein, Total 6.9 g/dL (6.0-8.3); Sodium 131 mmol/L (136-145)
[2019-10-09 16:41] LABS: Band 2 % (5-11); Lymphocytes 10 % (21-51); MDiff Complete? YES; Monocytes 16 % (0-10); Neutrophil 69 % (42-75); Platelet Morphology Comment Appears Decreased; RBC Morphology Normal; Reactive Lymphocytes 3 % (0-10)
[2019-10-09] MEDS ORDERED: Azithromycin 500 MG VIAL ONE (16:54)
[2019-10-09 17:03] LABS: Bacteria/HPF None Seen HPF (None Seen); Bilirubin Negative (Negative); Blood, Urine Negative (Negative); Clarity Clear (Clear); Glucose, Urine (Dipstick) Normal (Negative); Leukocyte Negative Leu/uL (Negative); Mucous/LPF 1+ LPF (<2+); Nitrite Negative (Negative); Protein, Urine (Dipstick) 70 mg/dL (Neg-Trace); RBC/HPF 0-3 HPF (0-3); Squamous Epithelial None Seen HPF (0-3); Urobilinogen Normal mg/dL (Less than 2); WBC/HPF 0-3 HPF (0-3)
[2019-10-09] MEDS ORDERED: Rocuronium Bromide 10 MG/ML (10ML VIAL) ONE (18:16)
[2019-10-09] MEDS ORDERED: Rocuronium Bromide 50 MG/5 ML VIAL ONE (18:18)
[2019-10-09] MEDS ORDERED: CCU Electrolyte Replacement 1 EACH IVPB ONE (18:45)
[2019-10-09 18:55] LABS: Actual Bicarbonate (HCO3a) 30.8 mEq/L (22-28); Analyzer IN Cardio ER; Base Excess (BEa) 2.8 mEq/L (-2.0 to +3.0); Calcium, Ionized 1.07 mmol/L (1.12-1.30); Carboxyhemoglobin (COHb) 0.9 gm% (0.0-3.0); Hemoglobin (Hb) 12.7 g/dL (12.0-16.0); O2 Tension (PaO2) 209.3 mmHg (> 60.0); Potassium - ABG Lab 4.61 mmol/L (3.70-5.30)
[2019-10-09 18:59] LABS: Puncture Site LBA
--- NOTE | 2019-10-09 18:59 | RAD ---
PORTABLE CHEST ONE VIEW: 10/09/19 at 6:12 p.m. HISTORY: Respiratory failure. FINDINGS/IMPRESSION: Comparison made with exam of 3:46 p.m. There has been interval placement of an endotracheal tube with tip about3 cm above the level of the c paulo. Nasogastric tube can be traced into the stomach. Remainder of the exam is otherwise stable. N o pneumothoraces are seen. POS: OFF
[2019-10-09] MEDS ORDERED: PHOS-NAK 1 PKT PACK PO PRN ×2 (19:42)
[2019-10-09] MEDS ORDERED: Potassium Phosphate 12 MMOL in Sodium Chloride 0.9% 250 ML 250 ML IV PRN (19:42)
[2019-10-09] MEDS ORDERED: CCU ELECTROLYTE REPLACEMENT PROTOCOL FS PRN (19:42)
[2019-10-09] MEDS ORDERED: Magnesium Oxide 400 MG TAB PO PRN ×2 (19:42)
[2019-10-09] MEDS ORDERED: Potassium Chloride 40 MEQ in Premix Bag 1 BAG IVPB PRN (19:42)
[2019-10-09] MEDS ORDERED: Magnesium 2 GM/50 ML 2 GM in Premix Bag 1 BAG IVPB PRN (19:42)
[2019-10-09] MEDS ORDERED: Potassium Chloride 20 MEQ TAB PO PRN (19:42)
[2019-10-09] MEDS ORDERED: Potassium Phosphate 9 MMOL in Sodium Chloride 0.9% 100 ML IVPB PRN (19:42)
[2019-10-09] MEDS ORDERED: Potassium Chloride 40 MEQ in Sodium Chloride 0.9% 250 ML 250 ML IVPB PRN (19:42)
[2019-10-09] MEDS ORDERED: Potassium Phosphate 15 MMOL in Sodium Chloride 0.9% 250 ML 250 ML IV PRN (19:42)
[2019-10-09] MEDS ORDERED: Famotidine/PF 20 mg/2ml Vial SLOW IVP SCH (21:00)
[2019-10-09] MEDS ORDERED: Heparin 5,000 UNITS/ML VIAL SC SCH (21:00)
[2019-10-09] MEDS ORDERED: Ventilator Sedation Protocol 1 EACH FS ONE (21:15)
[2019-10-09] MEDS ORDERED: Lorazepam 2 MG/ML VIAL SLOW IVP PRN (21:18)
[2019-10-09] MEDS ORDERED: Morphine 2 MG/ML SYRINGE SLOW IVP PRN (21:18)
[2019-10-09] MEDS ORDERED: Propofol BOLUS 1,000 MG/100 ML VIAL IV PRN (21:18)
[2019-10-09] MEDS ORDERED: Fentanyl BOLUS 250 ML IVPB PRN (21:18)
[2019-10-09] MEDS ORDERED: DISCONTINUE PREVIOUS NARCOTIC PAIN MEDICATIONS AND BENZODIAZEPINES FS SCH (21:18)
[2019-10-09] MEDS: methylPREDNISolone Sod Succ 40 MG VIAL IVP SCH ×2 (21:28→22:44)
[2019-10-09] MEDS: Sodium Chloride 0.9% 1,000 ML IV SCH (21:48)
[2019-10-09] MEDS: Propofol 1,000 MG/100 ML VIAL IV PRN (21:49)
--- NOTE | 2019-10-09 21:56 | HP ---
CHIEF COMPLAINT: Shortness of breath. HISTORY OF PRESENT ILLNESS: The patient is an 84-year-old female who started not feeling well yesterday, however, today she went to her primary care's office and was found to be hypoxic. Oxygen saturation was 76%. At this time, she was brought into the ER for further evaluation. In the ER again, she was noted to have hypoxia. She initially underwent some treatments with DuoNeb, however the patient's mental status according to the ER doctor worsened. She was put on BiPAP. Her mentation did not improve, so she was intubated. The patient's family also has noted today and yesterday, she has been a little bit confused and has not been her normal self. There were no complaints per family of any cough or fever. She was taken to her primary care doctor's office for change in mental status. PAST MEDICAL HISTORY: 1. She has a history of atrial fibrillation per documentation, she is on anticoagulation. 2. She has a history of COPD. 3. She also has a history of hypertension. 4. She also has a history of CAD; however, she has had a catheterization done. I am not exactly sure if she had any stent put in. PAST SURGICAL HISTORY: She has had a hemorrhoidectomy, rhinoplasty, hysterectomy, and a cardiac catheterization. ALLERGIES: SHE IS ALLERGIC TO ALENDRONATE, ATORVASTATIN, CODEINE, LIDOCAINE, PRAVASTATIN, ADHESIVES, AND PENICILLIN. SOCIAL HISTORY: She is a smoker and quit smoking in 2017. She nearly smoked for 50 years. Denies any alcohol use or drug use. She lives with her . CODE STATUS: Family is not at the bedside to address code status. FAMILY HISTORY: Mother at the age of 92 from old age. Father at age of 61 and he had an MT. MEDICATIONS: This is per the list from previous list. She appears to be on: 1. Eliquis 2.5 mg twice a day. 2. Aspirin 81 mg daily. 3. Metoprolol 12.5 twice a day. 4. Cartia extended release 240 daily. 5. Magnesium 400 mg daily. 6. Probiotic. REVIEW OF SYSTEMS: Unable to obtain. The patient is currently intubated. PHYSICAL EXAMINATION: VITAL SIGNS: Temperature 97.2, blood pressure 158/96, pulse of 117, respirations 16, she is currently ventilated. GENERAL: She is intubated. Pupils equal and reactive to light. CV: S1 and S2 present. She is irregularly irregular. LUNGS: Diminished breath sounds all over. No wheezing or rhonchi noted. ABDOMEN: Soft. Bowel sounds are present x2. No pain upon palpation. Again, she is intubated and sedated currently. EXTREMITIES: No edema. Pedal pulses are present x2. NEUROLOGICAL: Neurovascular freitas, unable to examine since the patient is currently intubated. SKIN: No cuts, lesions, or bruises noted. LABORATORY RESULTS: She had a chest x-ray done, which indicated no acute abnormalities noted. Her pH was 7.3, her CO2 was 64. Urine appeared normal. Influenza A was positive. BNP of 497. White count 4.5, platelets of 129, bands of 2. Sodium of 131, potassium of 5.2, BUN of 17, creatinine 0.74. Troponin x1 was negative. Lactic acid was normal. ASSESSMENT AND PLAN: The patient is an 84-year-old female who presents to the hospital with complaints of change in mental status. 1. Sepsis, most likely secondary to her influenza A, possible superimposed pneumonia. Currently, she has no lung findings of pneumonia; however, we will start her on broad-spectrum antibiotics. Also, we will start her on DuoNeb and possible Tamiflu and continue to monitor. 2. Acute respiratory failure, most likely secondary to hypoxic and hypercapnic. She also has influenza A and also most likely chronic obstructive pulmonary disease exacerbation. Given her history of smoking, she has very hyperinflated lungs. We will continue the DuoNeb and continue to monitor. 3. Atrial fibrillation. We will start the patient on some IV Cardizem or maybe just give her oral dose of Cardizem if the NG tube is in place to prevent any atrial fibrillation with rapid ventricular response. She is currently on Eliquis, we will continue that also. 4. Hyponatremia. We will check urine osmolality, serum osmolality, and also urine sodium. 5. Elevated BNP. We will get an echocardiogram. Her creatinine is normal. Maybe a little bit of heart failure. It looks like she does have an ICD. 6. Deep venous thrombosis prophylaxis. She is already on Eliquis, we will continue that. Job ID: [id number]
[2019-10-09 22:35] LABS: Anion Gap 13 mmol/L (10-20); BUN (Urea Nitrogen) 14 mg/dL (9.8-20.1); Calc. Creatinine Clearance 0 mL/min (70-130); Calcium 8.2 mg/dL (7.8-10.44); Carbon Dioxide 29 mmol/L (23-31); Chloride 96 mmol/L (98-107); Estimated GFR-MDRD 90; Glucose 99 mg/dL (83-110); Potassium 5.3 mmol/L (3.5-5.1); Sodium 133 mmol/L (136-145)
--- NOTE | 2019-10-09 23:17 | CON ---
DATE OF CONSULTATION: 10/09/2019 HISTORY OF PRESENT ILLNESS: Ms. Zamora is a pleasant 84-year-old female. She was last hospitalized . She had pneumonia and COPD. 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 She recovered from that. She apparently contracted the flu, started getting short of breath, presented to the emergency room, subsequently was intubated. She is awake. She moves all of her extremities. She nods to questions. She wants to be asleep per my yes no interaction whether. PAST MEDICAL HISTORY: Remarkable for: 1. Atrial fibrillation. 2. History of hyperthyroidism in 2011. 3. History of COPD, on oxygen at home. 4. History of cardiac catheterization by Dr. Ward in 2017. 5. History of hemorrhoidectomy. 6. History of rhinoplasty. 7. History of hysterectomy. ALLERGIES: FOSAMAX, LIPITOR, PENICILLIN, PRAVASTATIN, AND ADHESIVE. SOCIAL HISTORY: she quit smoking 3 years ago. She does not drink. FAMILY HISTORY: Positive for vascular disease. Negative for lung disease in early age. REVIEW OF SYSTEMS: Not obtainable. PHYSICAL EXAMINATION: VITAL SIGNS: Blood pressure is in the 150s right now. She is afebrile. Heart rate is 92, respiratory rate 16. HEENT: Pupils are equal. Sclerae are anicteric. She appears her age. NECK: Supple. No lymphadenopathy. LUNGS: Distant, clear. HEART: Irregular rhythm. Grade 1 to 2/6 systolic murmur. ABDOMEN: Soft and nontender. EXTREMITIES: Without asymmetry. IMAGING STUDIES: Chest x-ray shows no infiltrates. LABORATORY DATA: White count 4.5, hemoglobin 14, platelets 129. Sodium 131, potassium 5.2, chloride 89, bicarb 37, BUN 17, and creatinine 0.74. IMPRESSION: 1. Chronic atrial fibrillation. 2. Chronic obstructive pulmonary disease exacerbation. 3. Flu. 4. Respiratory failure. 5. Chronic hypoxemic respiratory failure, on home O2. 6. Advanced chronic obstructive pulmonary disease. 7. Advanced age. PLAN: Mechanical ventilation for a few days. We will increase her steroids and increase frequency of nebulized treatments at the sedation protocol. Hopefully , she will be stable for weaning by the end of the weekend or the first part of next week. CRITICAL CARE TIME: 30 minutes. Job ID: [id number] [facility]
[2019-10-09] MEDS ORDERED: Piperacillin/Tazobactam 3.375 GM in Sodium Chloride 0.9% 100 ML IVPB SCH (23:59)
[2019-10-10 04:05] LABS: #Lymphocytes 0.3 thou/uL (1.20-3.40); #Monocytes 0.2 thou/uL (0.11-0.59); #Neutrophils 4.2 thou/uL (1.40-6.50); %Eosinophils 0.7 % (0.0-10.0); %Lymphocytes 6.3 % (21.0-51.0); %Monocytes 4.1 % (0.0-10.0); %Neutrophils 88.9 % (42.0-75.0); Hemoglobin 12.1 g/dL (12.0-16.0); Mean Corpuscular Hemoglobin 31.7 pg (27.0-31.0); Mean Platelet Volume 8.5 fL (7.4-10.4); Platelet Count 103 thou/uL (130-400); Red Blood Cell (RBC) Count 3.83 mill/uL (4.20-5.40); White Blood Cell (WBC) Count 4.7 thou/uL (4.8-10.8)
[2019-10-10 04:20] LABS: Anion Gap 9 mmol/L (10-20); BUN (Urea Nitrogen) 12 mg/dL (9.8-20.1); Calc. Creatinine Clearance 48 mL/min (70-130); Carbon Dioxide 30 mmol/L (23-31); Chloride 97 mmol/L (98-107); Estimated GFR-MDRD Greater than 90; Glucose 97 mg/dL (83-110); Potassium 5.1 mmol/L (3.5-5.1); Sodium 131 mmol/L (136-145)
[2019-10-10] MEDS: methylPREDNISolone Sod Succ 40 MG VIAL IVP SCH ×3 (06:35→22:12)
[2019-10-10 07:51] LABS: Actual Bicarbonate (HCO3a) 30.8 mEq/L (22-28); Base Excess (BEa) 4.3 mEq/L (-2.0 to +3.0); CO2 Tension 54.1 mmHg (35.0-45.0); Calcium, Ionized 1.14 mmol/L (1.12-1.30); Carboxyhemoglobin (COHb) 1.3 gm% (0.0-3.0); Hemoglobin (Hb) 12.9 g/dL (12.0-16.0); O2 Tension (PaO2) 70.8 mmHg (> 60.0); Potassium - ABG Lab 4.98 mmol/L (3.70-5.30); pH, Arterial 7.37 (7.35-7.45)
[2019-10-10 07:53] LABS: Puncture Site RRA
[2019-10-10 07:54] LABS: ALV-art Gradient 75.475 (0-20)
[2019-10-10] MEDS ORDERED: methylPREDNISolone Sod Succ 40 MG VIAL IVP SCH (09:00)
[2019-10-10] MEDS: Magnesium Oxide 400 MG TAB PO SCH (09:53)
[2019-10-10] MEDS ORDERED: Diltiazem 125 MG in Sodium Chloride 0.9% 100 ML IVPB SCH (11:15)
--- NOTE | 2019-10-10 13:27 | PDOC.HOSPP ---
- Subjective Encounter Date: 10/10/19 Encounter Time: 10:15 Subjective: pt intubated - Objective Vital Signs & Weight: Vital Signs (12 hours) Temp Pulse Resp BP Pulse Ox 10/10/19 12:00 16 10/10/19 10:28 98 10/10/19 10:00 16 10/10/19 08:00 98.9 F 16 100 10/10/19 07:38 115 H 10/10/19 06:00 16 10/10/19 04:00 99.2 F 16 10/10/19 02:16 103 H 105/71 10/10/19 02:00 16 Weight Weight 95 lb 14.417 oz Most Recent Monitor Data Heart Rate from ECG 104 NIBP 88/51 NIBP BP-Mean 63 Respiration from ECG 16 SpO2 100 I&O: 10/09/19 10/10/19 10/11/19 06:59 06:59 06:59 Intake Total 418 30.5 Output Total 500 134 Balance -82 -103.5 Result Diagrams: 10/10/19 03:37 10/10/19 03:37 Hospitalist ROS - Review of Systems Cardiovascular: denies: chest pain, palpitations, orthopnea, paroxysmal noc. dyspnea, edema, light headedness, other Gastrointestinal: denies: nausea, vomiting, abdominal pain, diarrhea, constipation, melena, hematochezia, other Genitourinary: denies: dysuria, frequency, incontinence, hematuria, retention, other - Medication Medications: Active Medications Generic Name Dose Route Start Last Admin Trade Name Freq PRN Reason Stop Dose Admin Albuterol/Ipratropium 3 ml 10/09/19 22:30 10/10/19 10:25 Duoneb NEB 3 ml [id number] ALBERTA Administration Sodium Chloride 1,000 mls @ 50 mls/hr 10/09/19 19:30 10/09/19 21:48 Normal Saline 0.9% IV 1,000 mls .Q20H ALBERTA Administration Levofloxacin 750 mg/ Device 150 mls @ 100 mls/hr 10/10/19 09:00 10/10/19 09: 58 IVPB 150 mls Q24HR ALBERTA Administration Diltiazem HCl 125 mg/ Sodium 125 mls @ 5 mls/hr 10/10/19 11:15 10/10/19 12:43 Chloride IVPB 125 mls INF ALBERTA Administration Protocol 5 MG/HR Magnesium Oxide 400 mg 10/10/19 09:00 10/10/19 09:53 Magnesium Oxide PO 400 mg DAILY ALBERTA Administration Methylprednisolone Sodium Succinate 40 mg 10/10/19 06:00 10/10/19 06:35 Solu-Medrol IVP 40 mg Q8HR ALBERTA Administration Potassium Chloride 40 meq 10/09/19 19:42 10/10/19 09:53 Klor-Con PER TUBE 40 meq ASDIR PRN Administration FOR SERUM K+ 2.5-3.5 Propofol 1,000 mg 10/09/19 21:18 10/09/19 21:49 Diprivan IV 11/08/19 21:18 1,000 mg INF PRN Administration TO ACHIEVE GOAL RASS Protocol - Exam Neck: negative: supple, symmetric, no JVD, no thyromegaly, no lymphadenopathy, no carotid bruit, JVD Heart: irregular Respiratory: negative: CTAB, no wheezes, no rales, no ronchi, normal chest expansion, no tachypnea, normal percussion, rales, rhonchi, tachypneic, wheezes Gastrointestinal: negative: soft, non-tender, non-distended, normal bowel sounds , no palpable masses, no hepatomegaly, no splenomegaly, no bruit, no guarding, no rigidity, tender to palpation, distended, diminished bowl sounds, voluntary guarding Hosp A/P (1) Acute respiratory failure with hypoxia and hypercapnia Code(s): J96.01 - ACUTE RESPIRATORY FAILURE WITH HYPOXIA; J96.02 - ACUTE RESPIRATORY FAILURE WITH HYPERCAPNIA Status: Acute (2) Influenza A Code(s): J10.1 - FLU DUE TO OTH IDENT INFLUENZA VIRUS W OTH RESP MANIFEST Status: Acute (3) COPD exacerbation Code(s): J44.1 - CHRONIC OBSTRUCTIVE PULMONARY DISEASE W (ACUTE) EXACERBATION Status: Acute (4) Atrial fibrillation with RVR Code(s): I48.91 - UNSPECIFIED ATRIAL FIBRILLATION Status: Chronic (5) HTN (hypertension) Code(s): I10 - ESSENTIAL (PRIMARY) HYPERTENSION Status: Chronic Qualifiers: - Plan will start pt on cardizem iv, she is awake and follows command. will continue abx. will add tamiflue. will continue steroid and duoneb.
[2019-10-10] MEDS: Bacteriostatic Water 30 ML VIAL FS PRN ×2 (14:14→22:12)
[2019-10-10] MEDS: Sodium Chloride 0.9% 1,000 ML IV SCH (14:39)
[2019-10-10] MEDS ORDERED: Sodium Chloride 0.9% 250 ML IV SCH (20:45)
[2019-10-10] MEDS: Famotidine 20 MG TAB PO SCH (20:58)
[2019-10-10] MEDS: Oseltamivir 6 MG/ML ORAL SUSP PO SCH (20:58)
[2019-10-10] MEDS: Apixaban 2.5 MG TAB PO SCH (20:58)
[2019-10-10] MEDS ORDERED: Metoprolol Tartrate 25 MG TAB PO SCH (21:00)
[2019-10-10] MEDS ORDERED: Prevnar 13-Val Conj/PF 0.5 ML SYRINGE IM ONE (21:00)
[2019-10-10] MEDS ORDERED: Oseltamivir 75 MG CAP PO SCH (21:00)
[2019-10-10] MEDS: fentaNYL Citrate/PF 2,000 MCG in Sodium Chloride 0.9% 60 ML IV SCH (22:09)
[2019-10-10] MEDS: Digoxin 0.5 MG/2 ML AMP SLOW IVP SCH (22:12)
[2019-10-11] MEDS: Phenylephrine 10 MG in Sodium Chloride 0.9% 250 ML 250 ML IVPB PRN ×2 (01:08→13:59)
[2019-10-11] MEDS: Digoxin 0.5 MG/2 ML AMP SLOW IVP SCH ×2 (04:12→10:20)
[2019-10-11 04:56] LABS: Anion Gap 8 mmol/L (10-20); BUN (Urea Nitrogen) 16 mg/dL (9.8-20.1); Calc. Creatinine Clearance 43 mL/min (70-130); Calcium 8.4 mg/dL (7.8-10.44); Carbon Dioxide 31 mmol/L (23-31); Chloride 97 mmol/L (98-107); Estimated GFR-MDRD 88; Glucose 108 mg/dL (83-110); Sodium 131 mmol/L (136-145)
[2019-10-11 05:06] LABS: Hemoglobin 12.4 g/dL (12.0-16.0); Mean Corpuscular HGB CONC 33.1 g/dL (32.0-36.0); Mean Corpuscular Hemoglobin 31.8 pg (27.0-31.0); Mean Corpuscular Volume 96.2 fL (78.0-98.0); Platelet Count 126 thou/uL (130-400); RBC Distribution Width 11.9 % (11.5-14.5); Red Blood Cell (RBC) Count 3.88 mill/uL (4.20-5.40)
[2019-10-11 05:52] LABS: Band 5 % (5-11); Eosinophils 1 % (0-10); Lymphocytes 3 % (21-51); MDiff Complete? YES; Monocytes 5 % (0-10); Neutrophil 86 % (42-75); Platelet Morphology Comment Appears Decreased; RBC Morphology Normal
[2019-10-11] MEDS: methylPREDNISolone Sod Succ 40 MG VIAL IVP SCH ×3 (06:34→22:00)
[2019-10-11] MEDS: Sodium Chloride 0.9% 1,000 ML IV SCH ×3 (08:12→19:43)
[2019-10-11] MEDS: Apixaban 2.5 MG TAB PO SCH ×2 (09:53→21:31)
[2019-10-11] MEDS: Magnesium Oxide 400 MG TAB PO SCH (09:53)
[2019-10-11] MEDS: Oseltamivir 6 MG/ML ORAL SUSP PO SCH ×2 (10:20→21:31)
[2019-10-11] MEDS ORDERED: Pancrelipase DR 12000 1 CAP FS PRN (10:43)
[2019-10-11] MEDS ORDERED: Sodium Bicarbonate Tab 325 MG TAB PER TUBE PRN (10:43)
--- NOTE | 2019-10-11 11:04 | PRG ---
DATE OF SERVICE: 10/11/2019 SUBJECTIVE: The patient remains intubated, on mechanical ventilation. There have been no acute changes overnight other than the blood pressure issue. Her blood pressure improved off the Cardizem. She is currently on a Partha-Synephrine drip. Somebody came in and put in the right femoral central line last night, but there is no operative note on the chart. OBJECTIVE: VITAL SIGNS: Her temperature is 99.4, pulse 101, blood pressure 115/84. A 24-hour intake 2095, output 742. HEENT: Unremarkable. NECK: No adenopathy or JVD. LUNGS: Crackles. CARDIAC: S1, S2. Irregularly irregular. ABDOMEN: Soft. EXTREMITIES: Muscle wasting present. LABORATORY DATA: PH is 7.37, pCO2 of 54, and pO2 of 70, on SIMV rate 16, tidal volume 365, PEEP 5, pressure support 10, FiO2 of 30%. White blood cell count 4, hematocrit 37.3, and platelet count 126. Sodium 131, potassium 5, chloride 97, CO2 of 31, BUN 16, creatinine 0.6, glucose 108. Flu test positive for type A flu. ASSESSMENT: 1. Influenza with pneumonia. 2. Chronic obstructive pulmonary disease exacerbation. 3. Acute respiratory failure requiring mechanical ventilation. 4. Advanced age. PLAN: Current time, she is not a candidate for extubation based on her metabolic requirements. I have started her on digoxin for rate control of her atrial fibrillation. Tube feeds will be started today. She would probably benefit from being on a higher rate on her IV fluids, so I will increase that. My hope is to wean the Partha-Synephrine drip off today. I have reduced her steroid dose. She will continue the Tamiflu and antibiotics. The above encompassed 35 minutes of critical care time. Job ID: [id number]
--- NOTE | 2019-10-11 12:01 | RAD ---
EXAM: CHEST ONE VIEW HISTORY: On ventilator. Follow-up evaluation COMPARISON: 10/09/2019 FINDINGS: Endotracheal tube and nasogastric tubes remain in place. Single lead left subclavian cardiac pacemaki ng device is present. Cardiac silhouette is within normal limits chronic lung changes are again seen. No consolidation or pleural fluid is appreciated. Chest is stable when compared to the prior ex am. IMPRESSION: Stable chest.
[2019-10-11] MEDS ORDERED: Sodium Chloride 0.9% 500 ML IV SCH (14:00)
[2019-10-11] MEDS: Bacteriostatic Water 30 ML VIAL FS PRN ×2 (14:05→22:00)
[2019-10-11] MEDS: fentaNYL Citrate/PF 2,000 MCG in Sodium Chloride 0.9% 60 ML IV SCH (18:19)
--- NOTE | 2019-10-11 19:54 | PDOC.HOSPP ---
- Subjective Encounter Date: 10/11/19 Encounter Time: 09:45 Subjective: pt intubated - Objective Vital Signs & Weight: Vital Signs (12 hours) Temp Pulse Resp BP Pulse Ox 10/11/19 18:59 102 H 94 L 10/11/19 16:00 98.5 F 16 10/11/19 15:00 93 144/88 H 10/11/19 14:58 93 16 99 10/11/19 14:00 16 10/11/19 12:00 98.8 F 18 10/11/19 10:58 113 H 139/91 H 10/11/19 10:57 100 16 98 10/11/19 10:20 106 H 10/11/19 10:00 16 10/11/19 08:00 98.8 F 16 97 Weight Weight 99 lb 6.856 oz Most Recent Monitor Data Heart Rate from ECG 87 NIBP 133/98 NIBP BP-Mean 109 Respiration from ECG 16 SpO2 96 I&O: 10/10/19 10/11/19 10/12/19 06:59 06:59 06:59 Intake Total 418 2095.4 620 Output Total 500 742 659 Balance -82 1353.4 -39 Result Diagrams: 10/11/19 04:15 10/11/19 04:15 Hospitalist ROS - Review of Systems Other: intubated - Medication Medications: Active Medications Generic Name Dose Route Start Last Admin Trade Name Freq PRN Reason Stop Dose Admin Albuterol/Ipratropium 3 ml 10/09/19 22:30 10/11/19 18:59 Duoneb NEB 3 ml [id number] ALBERTA Administration Apixaban 2.5 mg 10/10/19 21:00 10/11/19 09:53 Eliquis PO 2.5 mg BID ALBERTA Administration Famotidine 20 mg 10/10/19 21:00 10/10/19 20:58 Pepcid PO 20 mg HS ALBERTA Administration Fentanyl Citrate 2,000 mcg/ 100 mls @ 0 mls/hr 10/09/19 18:28 10/11/19 18:19 Sodium Chloride IV 11/08/19 18:28 100 mls INF ALBERTA Administration Protocol Per Protocol Phenylephrine HCl 10 mg/ 251 mls @ 0 mls/hr 10/10/19 23:53 10/11/19 13:59 Sodium Chloride IVPB 251 mls INF PRN Administration FOR SBP > 80 Protocol Sodium Chloride 1,000 mls @ 100 mls/hr 10/11/19 10:36 10/11/19 19:43 Normal Saline 0.9% IV 1,000 mls .Q10H ALBERTA Administration Lorazepam 2 mg 10/09/19 21:18 10/10/19 14:12 Ativan SLOW IVP 11/08/19 21:18 2 mg Q1H PRN Administration Breakthrough agitation Magnesium Oxide 400 mg 10/10/19 09:00 10/11/19 09:53 Magnesium Oxide PO 400 mg DAILY ALBERTA Administration Methylprednisolone Sodium Succinate 20 mg 10/11/19 14:00 10/11/19 14:05 Solu-Medrol IVP 20 mg Q8HR ALBERTA Administration Oseltamivir Phosphate 30 mg 10/10/19 21:00 10/11/19 10:20 Tamiflu PO 10/15/19 09:01 30 mg BID ALBERTA Administration Potassium Chloride 40 meq 10/09/19 19:42 10/10/19 09:53 Klor-Con PER TUBE 40 meq ASDIR PRN Administration FOR SERUM K+ 2.5-3.5 Propofol 1,000 mg 10/09/19 21:18 10/09/19 21:49 Diprivan IV 11/08/19 21:18 1,000 mg INF PRN Administration TO ACHIEVE GOAL RASS Protocol Sterile Water 1 ml 10/09/19 19:29 10/11/19 14:05 Bacteriostatic Water FS 1 ml PRN PRN Administration RECONSTITUTION - Exam Neck: negative: supple, symmetric, no JVD, no thyromegaly, no lymphadenopathy, no carotid bruit, JVD Heart: irregular Respiratory: negative: CTAB, no wheezes, no rales, no ronchi, normal chest expansion, no tachypnea, normal percussion, rales, rhonchi, tachypneic, wheezes Gastrointestinal: negative: soft, non-tender, non-distended, normal bowel sounds , no palpable masses, no hepatomegaly, no splenomegaly, no bruit, no guarding, no rigidity, tender to palpation, distended, diminished bowl sounds, voluntary guarding Hosp A/P (1) Acute respiratory failure with hypoxia and hypercapnia Code(s): J96.01 - ACUTE RESPIRATORY FAILURE WITH HYPOXIA; J96.02 - ACUTE RESPIRATORY FAILURE WITH HYPERCAPNIA Status: Acute (2) Influenza A Code(s): J10.1 - FLU DUE TO OTH IDENT INFLUENZA VIRUS W OTH RESP MANIFEST Status: Acute (3) COPD exacerbation Code(s): J44.1 - CHRONIC OBSTRUCTIVE PULMONARY DISEASE W (ACUTE) EXACERBATION Status: Acute (4) Atrial fibrillation with RVR Code(s): I48.91 - UNSPECIFIED ATRIAL FIBRILLATION Status: Chronic (5) HTN (hypertension) Code(s): I10 - ESSENTIAL (PRIMARY) HYPERTENSION Status: Chronic Qualifiers: - Plan will start pt on cardizem iv, she is awake and follows command. will continue abx. will add tamiflue. will continue steroid and duoneb. 10/11 pt's blood pressur became unstable. She was given digoxin. she is on fluids. will continue abx/steroids and duoneb.
[2019-10-11] MEDS: Famotidine 20 MG TAB PO SCH (21:31)
[2019-10-12 05:16] LABS: Band 1 % (5-11); Hemoglobin 12.6 g/dL (12.0-16.0); Lymphocytes 5 % (21-51); MDiff Complete? YES; Mean Corpuscular HGB CONC 33.2 g/dL (32.0-36.0); Mean Corpuscular Hemoglobin 31.6 pg (27.0-31.0); Mean Platelet Volume 7.9 fL (7.4-10.4); Monocytes 4 % (0-10); Neutrophil 89 % (42-75); Platelet Count 141 thou/uL (130-400); Platelet Morphology Comment Appears Adequate; RBC Morphology Normal; Reactive Lymphocytes 1 % (0-10); Red Blood Cell (RBC) Count 3.99 mill/uL (4.20-5.40); White Blood Cell (WBC) Count 7.5 thou/uL (4.8-10.8)
[2019-10-12 05:22] LABS: Anion Gap 9 mmol/L (10-20); BUN (Urea Nitrogen) 17 mg/dL (9.8-20.1); Calc. Creatinine Clearance 50 mL/min (70-130); Calcium 7.8 mg/dL (7.8-10.44); Carbon Dioxide 29 mmol/L (23-31); Chloride 99 mmol/L (98-107); Estimated GFR-MDRD Greater than 90; Glucose 144 mg/dL (83-110); Potassium 4.2 mmol/L (3.5-5.1); Sodium 133 mmol/L (136-145)
[2019-10-12] MEDS: methylPREDNISolone Sod Succ 40 MG VIAL IVP SCH ×3 (05:54→21:45)
[2019-10-12] MEDS: Bacteriostatic Water 30 ML VIAL FS PRN ×2 (05:54→15:13)
[2019-10-12] MEDS: Sodium Chloride 0.9% 1,000 ML IV SCH ×2 (05:55→18:00)
[2019-10-12 07:54] LABS: Actual Bicarbonate (HCO3a) 29.1 mEq/L (22-28); Base Excess (BEa) 1.2 mEq/L (-2.0 to +3.0); Calcium, Ionized 1.18 mmol/L (1.12-1.30); Carboxyhemoglobin (COHb) 1.8 gm% (0.0-3.0); Hemoglobin (Hb) 13.2 g/dL (12.0-16.0); Potassium - ABG Lab 4.63 mmol/L (3.70-5.30); pH, Arterial 7.29 (7.35-7.45)
[2019-10-12 08:05] LABS: CO2 Tension 61.3 mmHg (35.0-45.0)
[2019-10-12 08:06] LABS: Puncture Site RR
[2019-10-12 08:07] LABS: ALV-art Gradient 83.275 (0-20)
[2019-10-12] MEDS: Phenylephrine 10 MG in Sodium Chloride 0.9% 250 ML 250 ML IVPB PRN (08:29)
--- NOTE | 2019-10-12 10:01 | PDOC.HOSPP ---
- Subjective Encounter Date: 10/12/19 Encounter Time: 10:00 Subjective: responds to verbal stimuli - Objective Vital Signs & Weight: Vital Signs (12 hours) Temp Pulse Resp BP Pulse Ox 10/12/19 08:00 99.8 F H 16 10/12/19 07:16 96 142/94 H 96 10/12/19 07:10 124 H 16 96 10/12/19 06:00 16 10/12/19 04:19 95 10/12/19 04:00 98.2 F 16 10/12/19 02:00 16 10/12/19 00:13 129 H 116/60 10/12/19 00:00 98.6 F 16 10/11/19 22:00 16 Weight Weight 106 lb 7.732 oz Most Recent Monitor Data Heart Rate from ECG 103 NIBP 106/55 NIBP BP-Mean 72 Respiration from ECG 16 SpO2 100 I&O: 10/11/19 10/12/19 10/13/19 06:59 06:59 06:59 Intake Total 2095.4 3263.3 Output Total 742 1984 80 Balance 1353.4 1279.3 -80 Result Diagrams: 10/12/19 04:00 10/12/19 04:00 Radiology Reviewed by me: Yes (cxr- xcopd, ET tube) Hospitalist ROS - Medication Medications: Active Medications Generic Name Dose Route Start Last Admin Trade Name Freq PRN Reason Stop Dose Admin Albuterol/Ipratropium 3 ml 10/09/19 22:30 10/12/19 07:10 Duoneb NEB 3 ml [id number] ALBERTA Administration Apixaban 2.5 mg 10/10/19 21:00 10/11/19 21:31 Eliquis PO 2.5 mg BID ALBERTA Administration Famotidine 20 mg 10/10/19 21:00 10/11/19 21:31 Pepcid PO 20 mg HS ALBERTA Administration Fentanyl Citrate 2,000 mcg/ 100 mls @ 0 mls/hr 10/09/19 18:28 10/11/19 18:19 Sodium Chloride IV 11/08/19 18:28 100 mls INF ALBERTA Administration Protocol Per Protocol Phenylephrine HCl 10 mg/ 251 mls @ 0 mls/hr 10/10/19 23:53 10/12/19 08:29 Sodium Chloride IVPB 251 mls INF PRN Administration FOR SBP > 80 Protocol Sodium Chloride 1,000 mls @ 100 mls/hr 10/11/19 10:36 10/12/19 05:55 Normal Saline 0.9% IV 1,000 mls .Q10H ALBERTA Administration Lorazepam 2 mg 10/09/19 21:18 10/10/19 14:12 Ativan SLOW IVP 11/08/19 21:18 2 mg Q1H PRN Administration Breakthrough agitation Magnesium Oxide 400 mg 10/10/19 09:00 10/11/19 09:53 Magnesium Oxide PO 400 mg DAILY ALBERTA Administration Methylprednisolone Sodium Succinate 20 mg 10/11/19 14:00 10/12/19 05:54 Solu-Medrol IVP 20 mg Q8HR ALBERTA Administration Oseltamivir Phosphate 30 mg 10/10/19 21:00 10/11/19 21:31 Tamiflu PO 10/15/19 09:01 30 mg BID ALBERTA Administration Potassium Chloride 40 meq 10/09/19 19:42 10/10/19 09:53 Klor-Con PER TUBE 40 meq ASDIR PRN Administration FOR SERUM K+ 2.5-3.5 Propofol 1,000 mg 10/09/19 21:18 10/09/19 21:49 Diprivan IV 11/08/19 21:18 1,000 mg INF PRN Administration TO ACHIEVE GOAL RASS Protocol Sterile Water 1 ml 10/09/19 19:29 10/12/19 05:54 Bacteriostatic Water FS 1 ml PRN PRN Administration RECONSTITUTION - Exam General Appearance: NAD Neck: no JVD Heart: no murmur, irregular Respiratory - other findings: decreased BS with rhonchi Gastrointestinal: soft, non-distended, normal bowel sounds Extremities: no edema Hosp A/P (1) Acute respiratory failure with hypoxia and hypercapnia Code(s): J96.01 - ACUTE RESPIRATORY FAILURE WITH HYPOXIA; J96.02 - ACUTE RESPIRATORY FAILURE WITH HYPERCAPNIA Status: Acute (2) Influenza A Code(s): J10.1 - FLU DUE TO OTH IDENT INFLUENZA VIRUS W OTH RESP MANIFEST Status: Acute (3) COPD exacerbation Code(s): J44.1 - CHRONIC OBSTRUCTIVE PULMONARY DISEASE W (ACUTE) EXACERBATION Status: Acute (4) PNA (pneumonia) Code(s): J18.9 - PNEUMONIA, UNSPECIFIED ORGANISM Status: Acute Qualifiers: Pneumonia type: due to unspecified organism Laterality: bilateral Lung location: lower lobe of lung (5) Atrial fibrillation with RVR Code(s): I48.91 - UNSPECIFIED ATRIAL FIBRILLATION Status: Acute (6) HTN (hypertension) Code(s): I10 - ESSENTIAL (PRIMARY) HYPERTENSION Status: Chronic Qualifiers: Hypertension type: essential hypertension - Plan vent dependent cont enteral nutrition antiviral + antibx Tx digoxin for atrial fib hypotensive with diltiazem discuss with licensed appraiser
[2019-10-12] MEDS: Apixaban 2.5 MG TAB PO SCH ×2 (10:16→21:46)
[2019-10-12] MEDS: Magnesium Oxide 400 MG TAB PO SCH (10:18)
[2019-10-12] MEDS: Oseltamivir 6 MG/ML ORAL SUSP PO SCH ×2 (10:19→21:59)
[2019-10-12] MEDS: Digoxin 0.5 MG/2 ML AMP SLOW IVP SCH (10:19)
--- NOTE | 2019-10-12 11:10 | PRG ---
DATE OF SERVICE: 10/12/2019 A 35 minutes of critical care time. SUBJECTIVE: The patient remains intubated on mechanical ventilation. Appears extremely weak. OBJECTIVE: VITAL SIGNS: Temperature is 99.8, pulse 105, blood pressure 136/81, and O2 saturation 100%. A 24-hour intake 3263 and output 1984. HEENT: Unremarkable. NECK: No adenopathy or JVD. LUNGS: Poor air movement. CARDIAC: S1 and S2. Irregularly irregular and tachycardic. ABDOMEN: Soft. EXTREMITIES: No edema. LABORATORY DATA: Chest x-ray shows hyperinflation. Sodium 133, potassium 4.2, chloride 99, CO2 of 29, BUN 17, creatinine 0.5, and glucose 144. A pH of 7.29, pCO2 of 61, and pO2 of 54, that is on SIMV rate 16, tidal volume 365, PEEP 5, pressure support 15, and FiO2 of 30%. White blood cell count 7.5, hematocrit 37.9, and platelet count 141. ASSESSMENT: 1. Influenza with pneumonia. 2. Chronic obstructive pulmonary disease with exacerbation. 3. Acute respiratory failure requiring mechanical ventilation. 4. Advanced age. 5. Atrial fibrillation. PLAN: 1. The patient is still requiring vasopressors for blood pressure support. We will try to take her off the propofol so that helps the blood pressure. 2. Continue digoxin for rate control of atrial fibrillation. 3. Increase respiratory rate on vent as she is not weanable at this time. 4. She is continuing Tamiflu and levofloxacin. 5. I think her prognosis for recovery is quite poor based on what I am seeing so far. Job ID: [id number]
--- NOTE | 2019-10-12 12:00 | RAD ---
PORTABLE CHEST ONE VIEW: HISTORY: Respiratory insufficiency. COMPARISON: 10/11/2019 FINDINGS: Life support tubes in place. Left ICD. Bilateral interstitial and linear and minimal reticulonodular stable parenchymal changes bilaterally. No significant new process. IMPRESSION: Stable changes bilaterally. Continued short-term followup. POS: CHRIS
[2019-10-12] MEDS: Acetaminophen 325 MG TAB PO PRN (12:24)
[2019-10-12] MEDS: fentaNYL Citrate/PF 2,000 MCG in Sodium Chloride 0.9% 60 ML IV SCH (15:07)
[2019-10-12] MEDS: Propofol 1,000 MG/100 ML VIAL IV PRN (21:38)
[2019-10-12] MEDS: Famotidine 20 MG TAB PO SCH (21:46)
[2019-10-13] MEDS: Sodium Chloride 0.9% 1,000 ML IV SCH ×3 (03:48→11:45)
[2019-10-13 05:02] LABS: Anion Gap 9 mmol/L (10-20); BUN (Urea Nitrogen) 18 mg/dL (9.8-20.1); Calc. Creatinine Clearance 54 mL/min (70-130); Calcium 7.8 mg/dL (7.8-10.44); Carbon Dioxide 29 mmol/L (23-31); Chloride 101 mmol/L (98-107); Estimated GFR-MDRD Greater than 90; Glucose 157 mg/dL (83-110); Potassium 4.2 mmol/L (3.5-5.1); Sodium 135 mmol/L (136-145)
[2019-10-13] MEDS: methylPREDNISolone Sod Succ 40 MG VIAL IVP SCH ×3 (05:02→21:16)
[2019-10-13 05:04] LABS: Hemoglobin 12.3 g/dL (12.0-16.0); Lymphocytes 5 % (21-51); MDiff Complete? YES; Mean Corpuscular HGB CONC 33.1 g/dL (32.0-36.0); Mean Corpuscular Hemoglobin 31.7 pg (27.0-31.0); Mean Corpuscular Volume 95.5 fL (78.0-98.0); Mean Platelet Volume 7.7 fL (7.4-10.4); Monocytes 4 % (0-10); Neutrophil 91 % (42-75); Platelet Count 129 thou/uL (130-400); Platelet Morphology Comment Appears Adequate; RBC Distribution Width 12.1 % (11.5-14.5); Red Blood Cell (RBC) Count 3.89 mill/uL (4.20-5.40); White Blood Cell (WBC) Count 8.5 thou/uL (4.8-10.8)
--- NOTE | 2019-10-13 07:24 | OP ---
DATE OF PROCEDURE: 10/11/2019 ATTENDING: Dr. Carmine Ruiz RESIDENT: Dr. Juanito Lakhani PROCEDURE: Right femoral central line. INDICATION: Persistent hypotension secondary to AFib with RVR and shock. ULTRASOUND USED: Yes. CONSENT: Consent was obtained from son by nursing staff prior to the procedure. Indications, risks, and benefits were explained. PROCEDURE SUMMARY: A time-out was performed with appropriate patient identification. Hands were washed immediately prior to procedure. Sterile cap, gown, gloves and mask were all worn. The right inguinal region was prepped using chlorhexidine scrub and draped in the usual sterile fashion using a drape and sterile probe cover employed for the ultrasound. Femoral pulse was identified. Local anesthesia was achieved using 1% lidocaine with epinephrine. Ultrasound was used to visualize the right femoral vein. The introducer needle was inserted medially to the femoral artery under direct visualization, inferior to the inguinal crease and into the femoral vein. Venous blood was withdrawn. The syringe was then removed and a guidewire was advanced into the introducer needle. Ultrasound was used to confirm guidewire placement into femoral vein. A small incision was then made at the skin surface with a scalpel and the introducer needle was exchanged for a dilator over the guidewire. After appropriate dilation was obtained, the dilator was exchanged over a wire for a 3-port central venous catheter. The wire was removed and the catheter was sutured in place. All 3 ports were tested for appropriate drawback as well as flushed. A sterile Tegaderm dressing was placed over the catheter at the insertion site. The patient tolerated the procedure well without any hemodynamic compromise. Estimated blood loss was minimal. At the time of procedure completion, all ports were aspirated and flushed properly. Attending addendum: I was present for the entire procedure. Job ID: [id number] MTDD
[2019-10-13 07:49] LABS: Actual Bicarbonate (HCO3a) 26.6 mEq/L (22-28); Base Excess (BEa) 2.8 mEq/L (-2.0 to +3.0); CO2 Tension 38.2 mmHg (35.0-45.0); Calcium, Ionized 1.17 mmol/L (1.12-1.30); Carboxyhemoglobin (COHb) 0.5 gm% (0.0-3.0); Hemoglobin (Hb) 12.6 g/dL (12.0-16.0); O2 Tension (PaO2) 118.4 mmHg (> 60.0); pH, Arterial 7.46 (7.35-7.45)
[2019-10-13 07:50] LABS: Puncture Site RRA
--- NOTE | 2019-10-13 08:25 | PRG ---
DATE OF SERVICE: 10/10/2019 SUBJECTIVE: Nicolasa Zamora will wake up. She wants to write notes . OBJECTIVE: VITAL SIGNS: Heart rate fluctuating , blood pressure 107/82. LUNGS: Remarkable for distant wheezes. HEART: Regular rhythm. ABDOMEN: Soft and nontender. EXTREMITIES: Without asymmetry. She is allowed to wake up. When she is stimulated., heart rate goes up to . LABORATORY DATA: White count 4.7, hemoglobin 12.2, platelets 103, 000. Sodium 133, potassium 5.1, chloride 97, bicarb 30, BUN 12, and creatinine 0.58. Chest x-ray flu positive. IMPRESSION: 1. Chronic obstructive pulmonary disease exacerbation triggered by currently unweanable. She still has a long expiratory phase. 2. Atrial fibrillation, rate really kicks up with . 3. . Will follow. Blood gas shows a pH of 7.37, p02 of 70, pC02 of 54 Critical Care time 35 min. Job ID: [id number] MTDD
[2019-10-13] MEDS: Magnesium Oxide 400 MG TAB PO SCH (09:32)
[2019-10-13] MEDS: Oseltamivir 6 MG/ML ORAL SUSP PO SCH ×2 (09:32→20:11)
[2019-10-13] MEDS: Digoxin 0.5 MG/2 ML AMP SLOW IVP SCH (09:32)
[2019-10-13] MEDS: Apixaban 2.5 MG TAB PO SCH ×2 (09:33→20:11)
--- NOTE | 2019-10-13 09:56 | RAD ---
CHEST 1 VIEW: Date: 10/13/2019 HISTORY: Respiratory insufficiency. COMPARISON: 10/12/2019. FINDINGS/IMPRESSION: Stable life support tubes. Left ICD. Rotation to the left. Increased markings in the perihilar region s, possibly representing some acute vascular congestion or some new interstitial opacity changes, rig ht worse than left. No overt confluent process. Continue short-term follow-up. POS: TPC
[2019-10-13] MEDS: fentaNYL Citrate/PF 2,000 MCG in Sodium Chloride 0.9% 60 ML IV SCH (10:10)
--- NOTE | 2019-10-13 10:22 | PDOC.HOSPP ---
- Subjective Encounter Date: 10/13/19 Encounter Time: 10:20 Subjective: intubated - Objective Vital Signs & Weight: Vital Signs (12 hours) Temp Pulse Resp BP Pulse Ox 10/13/19 09:32 75 10/13/19 08:00 98.0 F 100 10/13/19 07:50 22 H 10/13/19 07:43 75 10/13/19 06:00 22 H 10/13/19 05:02 115 H 10/13/19 04:00 98.5 F 22 H 10/13/19 02:00 26 H 10/13/19 00:00 98.9 F 22 H 10/12/19 23:04 117 H 132/63 Weight Weight 111 lb 8.862 oz Most Recent Monitor Data Heart Rate from ECG 85 NIBP 106/56 NIBP BP-Mean 72 Respiration from ECG 22 SpO2 98 I&O: 10/12/19 10/13/19 10/14/19 06:59 06:59 06:59 Intake Total 3263.3 3822.8 Output Total 1983 1229 106 Balance 1279.3 2593.8 -106 Result Diagrams: 10/13/19 03:50 10/13/19 03:50 Radiology Reviewed by me: Yes (cxr- ET tube, severe COPD) Hospitalist ROS - Medication Medications: Active Medications Generic Name Dose Route Start Last Admin Trade Name Freq PRN Reason Stop Dose Admin Acetaminophen 650 mg 10/09/19 18:43 10/12/19 12:24 Tylenol PO 650 mg Q4H PRN Administration Headache/Fever/Mild Pain (1-3) Albuterol/Ipratropium 3 ml 10/09/19 22:30 10/13/19 07:39 Duoneb NEB 3 ml [id number] ALBERTA Administration Apixaban 2.5 mg 10/10/19 21:00 10/13/19 09:33 Eliquis PO 2.5 mg BID ALBERTA Administration Digoxin 0.125 mg 10/12/19 09:00 10/13/19 09:32 Lanoxin SLOW IVP 0.125 mg DAILY ALBERTA Administration Famotidine 20 mg 10/10/19 21:00 10/12/19 21:46 Pepcid PO 20 mg HS ALBERTA Administration Fentanyl Citrate 2,000 mcg/ 100 mls @ 0 mls/hr 10/09/19 18:28 10/13/19 10:10 Sodium Chloride IV 11/08/19 18:28 100 mls INF ALBERTA Administration Protocol Per Protocol Levofloxacin 750 mg/ Device 150 mls @ 100 mls/hr 10/12/19 09:00 10/12/19 10: 22 IVPB 150 mls Q2D@0900 ALBERTA Administration Phenylephrine HCl 10 mg/ 251 mls @ 0 mls/hr 10/10/19 23:53 10/12/19 08:29 Sodium Chloride IVPB 251 mls INF PRN Administration FOR SBP > 80 Protocol Sodium Chloride 1,000 mls @ 100 mls/hr 10/11/19 10:36 10/13/19 05:02 Normal Saline 0.9% IV Not Given .Q10H ALBERTA Lorazepam 2 mg 10/09/19 21:18 10/10/19 14:12 Ativan SLOW IVP 11/08/19 21:18 2 mg Q1H PRN Administration Breakthrough agitation Magnesium Oxide 400 mg 10/10/19 09:00 10/13/19 09:32 Magnesium Oxide PO 400 mg DAILY ALBERTA Administration Methylprednisolone Sodium Succinate 20 mg 10/11/19 14:00 10/13/19 05:02 Solu-Medrol IVP 20 mg Q8HR ALBERTA Administration Oseltamivir Phosphate 30 mg 10/10/19 21:00 10/13/19 09:32 Tamiflu PO 10/15/19 09:01 30 mg BID ALBERTA Administration Potassium Chloride 40 meq 10/09/19 19:42 10/10/19 09:53 Klor-Con PER TUBE 40 meq ASDIR PRN Administration FOR SERUM K+ 2.5-3.5 Propofol 1,000 mg 10/09/19 21:18 10/12/19 21:38 Diprivan IV 11/08/19 21:18 1,000 mg INF PRN Administration TO ACHIEVE GOAL RASS Protocol Sterile Water 1 ml 10/09/19 19:29 10/12/19 15:13 Bacteriostatic Water FS 1 ml PRN PRN Administration RECONSTITUTION - Exam Neck: no JVD Heart: RRR, no murmur Respiratory - other findings: coarse BS with rhonchi/rales Gastrointestinal: soft, normal bowel sounds Extremities: no edema Hosp A/P (1) Acute respiratory failure with hypoxia and hypercapnia Code(s): J96.01 - ACUTE RESPIRATORY FAILURE WITH HYPOXIA; J96.02 - ACUTE RESPIRATORY FAILURE WITH HYPERCAPNIA Status: Acute (2) Influenza A Code(s): J10.1 - FLU DUE TO OTH IDENT INFLUENZA VIRUS W OTH RESP MANIFEST Status: Acute (3) COPD exacerbation Code(s): J44.1 - CHRONIC OBSTRUCTIVE PULMONARY DISEASE W (ACUTE) EXACERBATION Status: Acute (4) PNA (pneumonia) Code(s): J18.9 - PNEUMONIA, UNSPECIFIED ORGANISM Status: Acute Qualifiers: Pneumonia type: due to unspecified organism Laterality: bilateral Lung location: lower lobe of lung (5) Atrial fibrillation with RVR Code(s): I48.91 - UNSPECIFIED ATRIAL FIBRILLATION Status: Acute (6) HTN (hypertension) Code(s): I10 - ESSENTIAL (PRIMARY) HYPERTENSION Status: Chronic Qualifiers: Hypertension type: essential hypertension - Plan vent dependent cont enteral nutrition antiviral + antibx Tx digoxin for atrial fib hypotensive with diltiazem discuss with enrollment management director
[2019-10-13] MEDS: Bacteriostatic Water 30 ML VIAL FS PRN (14:14)
[2019-10-13] MEDS ORDERED: Sodium Chloride 0.9% 1,000 ML IV SCH (15:30)
[2019-10-13] MEDS: Propofol 1,000 MG/100 ML VIAL IV PRN (18:33)
--- NOTE | 2019-10-13 19:48 | PRG ---
DATE OF SERVICE: 10/13/2019 SUBJECTIVE: Nicolasa Zamora sedated for ventilation. When she wakes up, she gets very anxious and tachypneic. OBJECTIVE: VITAL SIGNS: Heart rate is in the 80s, blood pressure 91/50, respiratory rates in the 20s, oximetry is high 90s. LUNGS: Distant and clear. HEART: Regular rhythm. ABDOMEN: Soft. EXTREMITIES: Without asymmetry or edema. LABORATORY DATA: White count 8.5, hemoglobin 12.3, platelets 129. Sodium 135, potassium 4.2, chloride 101, bicarb 29, BUN 18, and creatinine 0.57. PH 7.46, CO2 of 38, pO2 of 118. IMPRESSION: Chronic obstructive pulmonary disease exacerbation associated with flu. This has been explained to the daughter that this is why people with a flu. This is not the flu but comorbid conditions. Hopefully, we can do something like place her on Precedex and consider weaning and extubation in 24 to 48 hours, but she gets so anxious. It may be difficult. Job ID: [id number]
[2019-10-13] MEDS: Famotidine 20 MG TAB PO SCH (20:11)
[2019-10-14 03:53] LABS: Hemoglobin 13.3 g/dL (12.0-16.0); Lymphocytes 3 % (21-51); MDiff Complete? YES; Mean Corpuscular HGB CONC 32.8 g/dL (32.0-36.0); Mean Corpuscular Hemoglobin 31.5 pg (27.0-31.0); Mean Corpuscular Volume 96.2 fL (78.0-98.0); Mean Platelet Volume 8.1 fL (7.4-10.4); Monocytes 3 % (0-10); Neutrophil 94 % (42-75); Platelet Count 137 thou/uL (130-400); Platelet Morphology Comment Appears Adequate; RBC Morphology Normal; Red Blood Cell (RBC) Count 4.23 mill/uL (4.20-5.40); White Blood Cell (WBC) Count 7.7 thou/uL (4.8-10.8)
[2019-10-14 03:54] LABS: Anion Gap 6 mmol/L (10-20); BUN (Urea Nitrogen) 16 mg/dL (9.8-20.1); Calc. Creatinine Clearance 59 mL/min (70-130); Calcium 8.1 mg/dL (7.8-10.44); Carbon Dioxide 33 mmol/L (23-31); Chloride 99 mmol/L (98-107); Estimated GFR-MDRD Greater than 90; Glucose 147 mg/dL (83-110); Potassium 4.2 mmol/L (3.5-5.1); Sodium 134 mmol/L (136-145)
[2019-10-14] MEDS: Propofol 1,000 MG/100 ML VIAL IV PRN ×2 (04:27→22:14)
[2019-10-14] MEDS: methylPREDNISolone Sod Succ 40 MG VIAL IVP SCH ×3 (05:04→21:02)
--- NOTE | 2019-10-14 07:33 | PDOC.HOSPP ---
- Subjective Encounter Date: 10/14/19 Encounter Time: 07:24 Subjective: intubated , sedated - Objective Vital Signs & Weight: Vital Signs (12 hours) Temp Pulse Resp Pulse Ox 10/14/19 06:00 16 10/14/19 04:00 16 10/14/19 03:16 87 10/14/19 03:00 98.4 F 10/14/19 02:00 16 10/14/19 00:00 16 10/13/19 23:00 99.0 F 10/13/19 22:00 16 10/13/19 21:34 80 100 10/13/19 20:00 16 96 Weight Admit Weight 111 lb Weight 115 lb 8.356 oz Most Recent Monitor Data Heart Rate from ECG 86 NIBP 125/67 NIBP BP-Mean 86 Respiration from ECG 16 SpO2 95 I&O: 10/13/19 10/14/19 10/15/19 06:59 06:59 06:59 Intake Total 3822.8 2680.2 Output Total 1229 1811 125 Balance 2593.8 869.2 -125 Result Diagrams: 10/14/19 03:17 10/14/19 03:17 Radiology Reviewed by me: Yes (cxr-severe copd, ET tube, L pleural effusion) Hospitalist ROS - Medication Medications: Active Medications Generic Name Dose Route Start Last Admin Trade Name Freq PRN Reason Stop Dose Admin Acetaminophen 650 mg 10/09/19 18:43 10/12/19 12:24 Tylenol PO 650 mg Q4H PRN Administration Headache/Fever/Mild Pain (1-3) Albuterol/Ipratropium 3 ml 10/09/19 22:30 10/14/19 03:16 Duoneb NEB 3 ml [id number] ALBERTA Administration Apixaban 2.5 mg 10/10/19 21:00 10/13/19 20:11 Eliquis PO 2.5 mg BID ALBERTA Administration Digoxin 0.125 mg 10/12/19 09:00 10/13/19 09:32 Lanoxin SLOW IVP 0.125 mg DAILY ALBERTA Administration Famotidine 20 mg 10/10/19 21:00 10/13/19 20:11 Pepcid PO 20 mg HS ALBERTA Administration Fentanyl Citrate 2,000 mcg/ 100 mls @ 0 mls/hr 10/09/19 18:28 10/13/19 10:10 Sodium Chloride IV 11/08/19 18:28 100 mls INF ALBERTA Administration Protocol Per Protocol Levofloxacin 750 mg/ Device 150 mls @ 100 mls/hr 10/12/19 09:00 10/12/19 10: 22 IVPB 150 mls Q2D@0900 ALBERTA Administration Phenylephrine HCl 10 mg/ 251 mls @ 0 mls/hr 10/10/19 23:53 10/12/19 08:29 Sodium Chloride IVPB 251 mls INF PRN Administration FOR SBP > 80 Protocol Lorazepam 2 mg 10/09/19 21:18 10/10/19 14:12 Ativan SLOW IVP 11/08/19 21:18 2 mg Q1H PRN Administration Breakthrough agitation Magnesium Oxide 400 mg 10/10/19 09:00 10/13/19 09:32 Magnesium Oxide PO 400 mg DAILY ALBERTA Administration Methylprednisolone Sodium Succinate 20 mg 10/11/19 14:00 10/14/19 05:04 Solu-Medrol IVP 20 mg Q8HR ALBERTA Administration Oseltamivir Phosphate 30 mg 10/10/19 21:00 10/13/19 20:11 Tamiflu PO 10/15/19 09:01 30 mg BID ALBERTA Administration Potassium Chloride 40 meq 10/09/19 19:42 10/10/19 09:53 Klor-Con PER TUBE 40 meq ASDIR PRN Administration FOR SERUM K+ 2.5-3.5 Propofol 1,000 mg 10/09/19 21:18 10/14/19 04:27 Diprivan IV 11/08/19 21:18 1,000 mg INF PRN Administration TO ACHIEVE GOAL RASS Protocol Sterile Water 1 ml 10/09/19 19:29 10/13/19 14:14 Bacteriostatic Water FS 1 ml PRN PRN Administration RECONSTITUTION - Exam General Appearance: NAD Neck: no JVD Heart: irregular Respiratory - other findings: decreased BS, grosssly clear Gastrointestinal: soft, normal bowel sounds Extremities: no edema Hosp A/P (1) Acute respiratory failure with hypoxia and hypercapnia Code(s): J96.01 - ACUTE RESPIRATORY FAILURE WITH HYPOXIA; J96.02 - ACUTE RESPIRATORY FAILURE WITH HYPERCAPNIA Status: Acute (2) Influenza A Code(s): J10.1 - FLU DUE TO OTH IDENT INFLUENZA VIRUS W OTH RESP MANIFEST Status: Acute (3) COPD exacerbation Code(s): J44.1 - CHRONIC OBSTRUCTIVE PULMONARY DISEASE W (ACUTE) EXACERBATION Status: Acute (4) PNA (pneumonia) Code(s): J18.9 - PNEUMONIA, UNSPECIFIED ORGANISM Status: Acute Qualifiers: Pneumonia type: due to unspecified organism Laterality: bilateral Lung location: lower lobe of lung (5) Atrial fibrillation with RVR Code(s): I48.91 - UNSPECIFIED ATRIAL FIBRILLATION Status: Acute (6) HTN (hypertension) Code(s): I10 - ESSENTIAL (PRIMARY) HYPERTENSION Status: Chronic Qualifiers: Hypertension type: essential hypertension (7) Malnutrition of mild degree Code(s): E44.1 - MILD PROTEIN-CALORIE MALNUTRITION Status: Acute - Plan vent dependent cont enteral nutrition antiviral + antibx Tx digoxin for atrial fib weaning from vent compromised by anxiety
[2019-10-14 07:50] LABS: Actual Bicarbonate (HCO3a) 30.5 mEq/L (22-28); Base Excess (BEa) 4.1 mEq/L (-2.0 to +3.0); CO2 Tension 52.9 mmHg (35.0-45.0); Carboxyhemoglobin (COHb) 0.9 gm% (0.0-3.0); Hemoglobin (Hb) 13.5 g/dL (12.0-16.0); O2 Tension (PaO2) 66.5 mmHg (> 60.0); Potassium - ABG Lab 4.23 mmol/L (3.70-5.30); pH, Arterial 7.38 (7.35-7.45)
[2019-10-14 07:51] LABS: ALV-art Gradient 81.275 (0-20); Puncture Site RRA
[2019-10-14] MEDS: Apixaban 2.5 MG TAB PO SCH ×2 (08:59→19:39)
[2019-10-14] MEDS: Oseltamivir 6 MG/ML ORAL SUSP PO SCH ×2 (09:00→19:40)
[2019-10-14] MEDS: Magnesium Oxide 400 MG TAB PO SCH (09:00)
[2019-10-14] MEDS: Digoxin 0.5 MG/2 ML AMP SLOW IVP SCH (09:00)
[2019-10-14] MEDS: fentaNYL Citrate/PF 2,000 MCG in Sodium Chloride 0.9% 60 ML IV SCH (09:01)
--- NOTE | 2019-10-14 09:36 | RAD ---
1 VIEW CHEST: Date: 10/14/2019 HISTORY: On ventilator. Follow-up evaluation. COMPARISON: 10/13/2019. FINDINGS: Endotracheal tube and nasogastric tubes are stable in position. Single lead left subclavian cardiac p acemaking device is stable in position. Cardiac silhouette is within normal limits. Mild chronic lung changes are again seen with slightly greater interstitial densities at each lung base, which also co uld be attributable to chronic lung changes. Superimposed acute process could not be entirely exclude d. There is no consolidation or pleural fluid identified. Vascular calcifications again seen in thora cic aorta. Chest is not significantly changed when compared to the prior study. IMPRESSION: Stable chest. POS: OFF
--- NOTE | 2019-10-14 19:19 | PRG ---
DATE OF SERVICE: 10/14/2019 SUBJECTIVE: Noah will awaken. She tends to get tachypneic when she is awake. OBJECTIVE: VITAL SIGNS: Heart rate is 105, blood pressure 116/53, and respiratory rates in the teens to low 30s. LUNGS: Distant clear. HEART: Regular rhythm. ABDOMEN: Soft. EXTREMITIES: Without edema. LABORATORY DATA: White count 7.7, hemoglobin 13.3, platelets 137. Sodium 134, potassium 4.2, chloride 99, bicarb 33, BUN 16, creatinine 0.55. A pH 7.38, CO2 of 52, and pO2 of 66. IMPRESSION: Respiratory failure. The patient with chronic hypoxemic respiratory failure, on home oxygen for years. Her daughter says she was weaned off oxygen. I am going to take care of Ms. Zamora that long in the office, but my initial evaluation showed her to be on oxygen. She clearly has advanced chronic obstructive pulmonary disease and she clearly is thin enough that she has limited muscle reserve. I am hopeful that we can place her on Precedex, decrease her ventilatory support and consider weaning and extubation tomorrow, but we will just have to see. Overall, she is stable, but the family needs to remember that the flu triggered respiratory failure. She did not have a reserve to handle the flu, which is not a good sign. Hopefully, we can get her through this. Job ID: [id number]
[2019-10-14] MEDS: Famotidine 20 MG TAB PO SCH (19:40)
[2019-10-14] MEDS: Senokot S 8.6-50 MG TAB PO PRN (21:03)
[2019-10-15] MEDS: Bacteriostatic Water 30 ML VIAL FS PRN (05:05)
[2019-10-15] MEDS: methylPREDNISolone Sod Succ 40 MG VIAL IVP SCH ×3 (05:05→22:23)
[2019-10-15 06:15] LABS: Hemoglobin 13.5 g/dL (12.0-16.0); Mean Corpuscular HGB CONC 30.9 g/dL (32.0-36.0); Mean Corpuscular Hemoglobin 29.8 pg (27.0-31.0); Mean Corpuscular Volume 96.2 fL (78.0-98.0); Mean Platelet Volume 7.8 fL (7.4-10.4); Platelet Count 131 thou/uL (130-400); Red Blood Cell (RBC) Count 4.54 mill/uL (4.20-5.40); White Blood Cell (WBC) Count 9.8 thou/uL (4.8-10.8)
[2019-10-15 06:16] LABS: Lymphocytes 9 % (21-51); MDiff Complete? YES; Monocytes 3 % (0-10); Neutrophil 88 % (42-75); Platelet Morphology Comment Appears Adequate
[2019-10-15 06:39] LABS: Anion Gap 6 mmol/L (10-20); BUN (Urea Nitrogen) 17 mg/dL (9.8-20.1); Calc. Creatinine Clearance 61 mL/min (70-130); Calcium 8.2 mg/dL (7.8-10.44); Carbon Dioxide 36 mmol/L (23-31); Chloride 98 mmol/L (98-107); Estimated GFR-MDRD Greater than 90; Glucose 153 mg/dL (83-110); Potassium 4.3 mmol/L (3.5-5.1); Sodium 136 mmol/L (136-145)
--- NOTE | 2019-10-15 07:45 | RAD ---
XR Chest 1 View Portable History: Ventilated patient Comparison: Radiograph prior day Findings: Patient is intubated with endotracheal tube tip above the cayla 2.8 cm. Enteric tube tip b elow diaphragm although out of field of view. Mild pulmonary edema. Background lung hyperinflation. Scarring in the lung apices. The pulmonary arteries are dilated. Impression: Mild pulmonary edema. Similar examination of the chest.
--- NOTE | 2019-10-15 07:53 | PDOC.HOSPP ---
- Subjective Encounter Date: 10/15/19 Encounter Time: 07:46 Subjective: anxious - Objective Vital Signs & Weight: Vital Signs (12 hours) Temp Pulse Resp BP 10/15/19 06:00 13 10/15/19 04:00 14 10/15/19 03:00 98.4 F 10/15/19 02:36 71 122/60 10/15/19 02:00 12 10/15/19 00:00 13 10/14/19 23:00 99.3 F 10/14/19 22:19 79 112/62 10/14/19 22:00 13 10/14/19 20:00 22 H Weight Admit Weight 111 lb Weight 112 lb 3.445 oz Most Recent Monitor Data Heart Rate from ECG 74 NIBP 127/67 NIBP BP-Mean 87 Respiration from ECG 13 SpO2 100 I&O: 10/14/19 10/15/19 10/16/19 06:59 06:59 06:59 Intake Total 2680.2 2511.9 Output Total 1811 2115 Balance 869.2 396.9 Result Diagrams: 10/15/19 05:33 10/15/19 05:33 Hospitalist ROS - Medication Medications: Active Medications Generic Name Dose Route Start Last Admin Trade Name Freq PRN Reason Stop Dose Admin Acetaminophen 650 mg 10/09/19 18:43 10/12/19 12:24 Tylenol PO 650 mg Q4H PRN Administration Headache/Fever/Mild Pain (1-3) Albuterol/Ipratropium 3 ml 10/09/19 22:30 10/15/19 02:36 Duoneb NEB 3 ml [id number] ALBERTA Administration Apixaban 2.5 mg 10/10/19 21:00 10/14/19 19:39 Eliquis PO 2.5 mg BID ALBERTA Administration Digoxin 0.125 mg 10/12/19 09:00 10/14/19 09:00 Lanoxin SLOW IVP 0.125 mg DAILY ALBERTA Administration Famotidine 20 mg 10/10/19 21:00 10/14/19 19:40 Pepcid PO 20 mg HS ALBERTA Administration Fentanyl Citrate 2,000 mcg/ 100 mls @ 0 mls/hr 10/09/19 18:28 10/14/19 09:01 Sodium Chloride IV 11/08/19 18:28 100 mls INF ALBERTA Administration Protocol Per Protocol Levofloxacin 750 mg/ Device 150 mls @ 100 mls/hr 10/12/19 09:00 10/14/19 09: 01 IVPB 150 mls Q2D@0900 ALBERTA Administration Phenylephrine HCl 10 mg/ 251 mls @ 0 mls/hr 10/10/19 23:53 10/12/19 08:29 Sodium Chloride IVPB 251 mls INF PRN Administration FOR SBP > 80 Protocol Dexmedetomidine HCl 200 mcg/ 50 mls @ 0 mls/hr 10/14/19 14:15 10/15/19 06:04 Sodium Chloride IVPB 50 mls INF ALBERTA Administration Protocol Per Protocol Lorazepam 2 mg 10/09/19 21:18 10/10/19 14:12 Ativan SLOW IVP 11/08/19 21:18 2 mg Q1H PRN Administration Breakthrough agitation Magnesium Oxide 400 mg 10/10/19 09:00 10/14/19 09:00 Magnesium Oxide PO 400 mg DAILY ALBERTA Administration Methylprednisolone Sodium Succinate 20 mg 10/11/19 14:00 10/15/19 05:05 Solu-Medrol IVP 20 mg Q8HR ALBERTA Administration Oseltamivir Phosphate 30 mg 10/10/19 21:00 10/14/19 19:40 Tamiflu PO 10/15/19 09:01 30 mg BID ALBERTA Administration Potassium Chloride 40 meq 10/09/19 19:42 10/10/19 09:53 Klor-Con PER TUBE 40 meq ASDIR PRN Administration FOR SERUM K+ 2.5-3.5 Propofol 1,000 mg 10/09/19 21:18 10/14/19 22:14 Diprivan IV 11/08/19 21:18 1,000 mg INF PRN Administration TO ACHIEVE GOAL RASS Protocol Senna/Docusate Sodium 2 tab 10/09/19 18:43 10/14/19 21:03 Senokot S PO 2 tab BID PRN Administration Constipation Sterile Water 1 ml 10/09/19 19:29 10/15/19 05:05 Bacteriostatic Water FS 1 ml PRN PRN Administration RECONSTITUTION - Exam General Appearance: awake alert Neck: no JVD Heart: irregular Respiratory - other findings: tachyneic, hyperesonant, adequate BS Gastrointestinal: soft, non-tender, normal bowel sounds Extremities: no edema Hosp A/P (1) Acute respiratory failure with hypoxia and hypercapnia Code(s): J96.01 - ACUTE RESPIRATORY FAILURE WITH HYPOXIA; J96.02 - ACUTE RESPIRATORY FAILURE WITH HYPERCAPNIA Status: Acute (2) Influenza A Code(s): J10.1 - FLU DUE TO OTH IDENT INFLUENZA VIRUS W OTH RESP MANIFEST Status: Acute (3) COPD exacerbation Code(s): J44.1 - CHRONIC OBSTRUCTIVE PULMONARY DISEASE W (ACUTE) EXACERBATION Status: Acute (4) PNA (pneumonia) Code(s): J18.9 - PNEUMONIA, UNSPECIFIED ORGANISM Status: Acute Qualifiers: Pneumonia type: due to unspecified organism Laterality: bilateral Lung location: lower lobe of lung (5) Atrial fibrillation with RVR Code(s): I48.91 - UNSPECIFIED ATRIAL FIBRILLATION Status: Acute (6) HTN (hypertension) Code(s): I10 - ESSENTIAL (PRIMARY) HYPERTENSION Status: Chronic Qualifiers: Hypertension type: essential hypertension (7) Malnutrition of mild degree Code(s): E44.1 - MILD PROTEIN-CALORIE MALNUTRITION Status: Acute - Plan cont enteral nutrition antiviral + antibx Tx digoxin for atrial fib weaning from vent in progress
[2019-10-15 08:10] LABS: Actual Bicarbonate (HCO3a) 32.6 mEq/L (22-28); Base Excess (BEa) 5.2 mEq/L (-2.0 to +3.0); CO2 Tension 59.2 mmHg (35.0-45.0); Carboxyhemoglobin (COHb) 1.3 gm% (0.0-3.0); O2 Tension (PaO2) 67.7 mmHg (> 60.0); Potassium - ABG Lab 4.47 mmol/L (3.70-5.30); pH, Arterial 7.36 (7.35-7.45)
[2019-10-15 08:14] LABS: Puncture Site RR
[2019-10-15] MEDS: Magnesium Oxide 400 MG TAB PO SCH (08:39)
[2019-10-15] MEDS: Apixaban 2.5 MG TAB PO SCH ×2 (08:39→20:14)
[2019-10-15] MEDS: Digoxin 0.5 MG/2 ML AMP SLOW IVP SCH (08:40)
[2019-10-15] MEDS: Oseltamivir 6 MG/ML ORAL SUSP PO SCH (10:22)
[2019-10-15] MEDS ORDERED: Morphine 2 MG/ML SYRINGE SLOW IVP PRN (11:35)
[2019-10-15] MEDS: Famotidine 20 MG TAB PO SCH (20:13)
--- NOTE | 2019-10-15 21:24 | PRG ---
DATE OF SERVICE: 10/15/2019 SUBJECTIVE: Ms. Zamora actually looked good today. As before, she intermittently gets very anxious and tachypneic. OBJECTIVE: VITAL SIGNS: Stable overnight. Her blood pressure earlier today was in the 130 to 140 range, heart rate was in 70s, respiratory rates in the teens to low 20s. LUNGS: Distant, clear. HEART: Regular rhythm. ABDOMEN: Soft. EXTREMITIES: Without asymmetry. DIAGNOSTIC DATA: Chest x-ray today shows just a mild increase in interstitial markings. LABORATORY DATA: White count 9.8, hemoglobin 13.5, platelets 88,000. Blood gas; pH 7.36, pCO2 of 59, pO2 of 67. Electrolytes are normal. BUN 17, creatinine 0.53. Intake and output are positive 369. IMPRESSION: Influenza with chronic obstructive pulmonary disease exacerbation, leaning respiratory failure. I felt she was a candidate for extubation. She has done well postextubation, although she intermittently gets anxious, which goes away with BiPAP. We will continue with intermittent BiPAP as she has no signs of muscle fatigue or need for re-intubation. CRITICAL CARE TIME: Today 40 minutes. Job ID: [id number]
[2019-10-16 04:57] LABS: Hemoglobin 14.5 g/dL (12.0-16.0); Lymphocytes 5 % (21-51); MDiff Complete? YES; Mean Corpuscular HGB CONC 32.5 g/dL (32.0-36.0); Mean Corpuscular Hemoglobin 31.3 pg (27.0-31.0); Mean Corpuscular Volume 96.4 fL (78.0-98.0); Mean Platelet Volume 8.4 fL (7.4-10.4); Metamyelocyte 1 % (0-0); Monocytes 1 % (0-10); Neutrophil 93 % (42-75); Platelet Count 135 thou/uL (130-400); Platelet Morphology Comment Appears Adequate; RBC Distribution Width 12.1 % (11.5-14.5); Red Blood Cell (RBC) Count 4.63 mill/uL (4.20-5.40); White Blood Cell (WBC) Count 10.3 thou/uL (4.8-10.8)
[2019-10-16 05:10] LABS: Anion Gap 10 mmol/L (10-20); BUN (Urea Nitrogen) 17 mg/dL (9.8-20.1); Calc. Creatinine Clearance 60 mL/min (70-130); Calcium 8.5 mg/dL (7.8-10.44); Carbon Dioxide 33 mmol/L (23-31); Chloride 99 mmol/L (98-107); Estimated GFR-MDRD Greater than 90; Glucose 91 mg/dL (83-110); Potassium 4.4 mmol/L (3.5-5.1); Sodium 138 mmol/L (136-145)
[2019-10-16] MEDS: methylPREDNISolone Sod Succ 40 MG VIAL IVP SCH ×3 (05:46→22:10)
[2019-10-16] MEDS: Magnesium Oxide 400 MG TAB PO SCH (07:41)
[2019-10-16] MEDS: ALPRAZolam 0.25 MG TAB PO PRN ×2 (07:41→14:32)
[2019-10-16] MEDS: Apixaban 2.5 MG TAB PO SCH ×2 (08:52→20:38)
[2019-10-16] MEDS: Digoxin 0.5 MG/2 ML AMP SLOW IVP SCH (08:53)
--- NOTE | 2019-10-16 09:28 | PRG ---
DATE OF SERVICE: 10/16/2019 SUBJECTIVE: Nicolasa Zamora has been on and off BiPAP since she was extubated. OBJECTIVE: VITAL SIGNS: Blood pressure is 140/77, her FiO2 is 32%, heart rates in the 70s, respiratory rates in the low 20s. LUNGS: Distant, clear. HEART: Regular rhythm. ABDOMEN: Soft. EXTREMITIES: Without edema. LABORATORY DATA: White count 10.3, hemoglobin 14.5, and platelets 135. Sodium 138, potassium 4.4, chloride 99, bicarb 33, BUN 17, and creatinine 0.54. IMPRESSION: 1. Status post mechanical ventilation for chronic obstructive pulmonary disease exacerbation associated with the flu. 2. Chronic hypoxemic respiratory failure, on oxygen at home. 3. Deconditioning with advanced age. PLAN: Continue intermittent BiPAP. She needs to be up in a chair today. She needs to take in some nutrition such as Ensure. We will continue to follow. She needs to remain in the critical care unit. Job ID: [id number]
--- NOTE | 2019-10-16 14:52 | PDOC.HOSPP ---
- Subjective Encounter Date: 10/16/19 Encounter Time: 13:00 Subjective: patient deneis any fever chills nause or vomiting, continues to complain of sob and cough with sputum production - Objective Vital Signs & Weight: Vital Signs (12 hours) Temp Pulse Resp Pulse Ox 10/16/19 13:55 98 10/16/19 13:54 112 H 28 H 94 L 10/16/19 11:00 97.2 F L 10/16/19 10:20 93 10/16/19 10:19 94 28 H 97 10/16/19 08:53 77 10/16/19 08:00 97 10/16/19 07:24 96 10/16/19 07:23 77 10/16/19 07:21 83 27 H 96 10/16/19 07:00 97.1 F L 10/16/19 05:37 98.3 F 10/16/19 03:00 98.4 F Weight Admit Weight 111 lb Weight 111 lb 15.917 oz Most Recent Monitor Data Heart Rate from ECG 95 NIBP 138/75 NIBP BP-Mean 96 Respiration from ECG 29 SpO2 97 I&O: 10/15/19 10/16/19 10/17/19 06:59 06:59 06:59 Intake Total 2511.9 1542.8 300 Output Total 2115 1383 730 Balance 396.9 159.8 -430 Result Diagrams: 10/16/19 04:00 10/16/19 04:00 Hospitalist ROS - Review of Systems All other systems reviewed; all pertinent +/- noted in HPI/Subj - Medication Medications: Active Medications Generic Name Dose Route Start Last Admin Trade Name Freq PRN Reason Stop Dose Admin Acetaminophen 650 mg 10/09/19 18:43 10/12/19 12:24 Tylenol PO 650 mg Q4H PRN Administration Headache/Fever/Mild Pain (1-3) Albuterol/Ipratropium 3 ml 10/09/19 22:30 10/16/19 13:54 Duoneb NEB 3 ml [id number] ALBERTA Administration Alprazolam 0.25 mg 10/15/19 16:39 10/16/19 14:32 Xanax PO 0.25 mg TIDPRN PRN Administration Anxiety Apixaban 2.5 mg 10/10/19 21:00 10/16/19 08:52 Eliquis PO 2.5 mg BID ALBERTA Administration Digoxin 0.125 mg 10/12/19 09:00 10/16/19 08:53 Lanoxin SLOW IVP 0.125 mg DAILY ALBERTA Administration Famotidine 20 mg 10/10/19 21:00 10/15/19 20:13 Pepcid PO 20 mg HS ALBERTA Administration Dexmedetomidine HCl 200 mcg/ 50 mls @ 0 mls/hr 10/14/19 14:15 10/16/19 14:37 Sodium Chloride IVPB 50 mls INF ALBERTA Administration Protocol Per Protocol Magnesium Oxide 400 mg 10/10/19 09:00 10/16/19 07:41 Magnesium Oxide PO 400 mg DAILY ALBERTA Administration Methylprednisolone Sodium Succinate 20 mg 10/11/19 14:00 10/16/19 14:32 Solu-Medrol IVP 20 mg Q8HR ALBERTA Administration Potassium Chloride 40 meq 10/09/19 19:42 10/10/19 09:53 Klor-Con PER TUBE 40 meq ASDIR PRN Administration FOR SERUM K+ 2.5-3.5 Senna/Docusate Sodium 2 tab 10/09/19 18:43 10/14/19 21:03 Senokot S PO 2 tab BID PRN Administration Constipation Sterile Water 1 ml 10/09/19 19:29 10/15/19 05:05 Bacteriostatic Water FS 1 ml PRN PRN Administration RECONSTITUTION - Exam General - other findings: on high flow oxygen Eye: PERRL, anicteric sclera ENT: normocephalic atraumatic, no oropharyngeal lesions Neck: supple, symmetric, no JVD Heart: RRR, no murmur, no gallops, no rubs Respiratory: rhonchi, tachypneic, wheezes Gastrointestinal: soft, non-tender, non-distended Extremities: no cyanosis, no clubbing Skin: normal turgor, no lesions Neurological: cranial nerve grossly intact, normal sensation to touch, no weakness, no focal deficits, no new deficit Musculoskeletal: normal tone, normal strength Psychiatric: normal affect, normal behavior, A&O x 3 Hosp A/P (1) Acute respiratory failure with hypoxia and hypercapnia Code(s): J96.01 - ACUTE RESPIRATORY FAILURE WITH HYPOXIA; J96.02 - ACUTE RESPIRATORY FAILURE WITH HYPERCAPNIA Status: Acute (2) Influenza A Code(s): J10.1 - FLU DUE TO OTH IDENT INFLUENZA VIRUS W OTH RESP MANIFEST Status: Acute (3) Atrial fibrillation with RVR Code(s): I48.91 - UNSPECIFIED ATRIAL FIBRILLATION Status: Acute (4) COPD exacerbation Code(s): J44.1 - CHRONIC OBSTRUCTIVE PULMONARY DISEASE W (ACUTE) EXACERBATION Status: Acute (5) HTN (hypertension) Code(s): I10 - ESSENTIAL (PRIMARY) HYPERTENSION Status: Chronic Qualifiers: Hypertension type: essential hypertension Qualified Code(s): I10 - Essential (primary) hypertension - Plan -s/p extubation, tolerating well fred -continue with high flow oxygen -continue with resp support w steroids and nebs - continue abx and antiviral therapy -continue home meds for chronic conditions -wean 02 supplementation as tolerated -prn bipap
[2019-10-16] MEDS: Famotidine 20 MG TAB PO SCH (20:37)
[2019-10-16] MEDS: Senokot S 8.6-50 MG TAB PO PRN (20:46)
[2019-10-17] MEDS: ALPRAZolam 0.25 MG TAB PO PRN ×4 (00:28→20:51)
[2019-10-17 04:57] LABS: Anion Gap 9 mmol/L (10-20); BUN (Urea Nitrogen) 18 mg/dL (9.8-20.1); Calc. Creatinine Clearance 59 mL/min (70-130); Calcium 8.4 mg/dL (7.8-10.44); Carbon Dioxide 36 mmol/L (23-31); Chloride 96 mmol/L (98-107); Estimated GFR-MDRD Greater than 90; Glucose 82 mg/dL (83-110); Potassium 4.1 mmol/L (3.5-5.1); Sodium 137 mmol/L (136-145)
[2019-10-17 05:38] LABS: Hemoglobin 13.6 g/dL (12.0-16.0); Mean Corpuscular HGB CONC 32.7 g/dL (32.0-36.0); Mean Corpuscular Hemoglobin 31.4 pg (27.0-31.0); Mean Corpuscular Volume 96.2 fL (78.0-98.0); Mean Platelet Volume 8.3 fL (7.4-10.4); Platelet Count 145 thou/uL (130-400); Red Blood Cell (RBC) Count 4.32 mill/uL (4.20-5.40); White Blood Cell (WBC) Count 13.7 thou/uL (4.8-10.8)
[2019-10-17 05:41] LABS: Band 1 % (5-11); Lymphocytes 2 % (21-51); MDiff Complete? YES; Monocytes 3 % (0-10); Neutrophil 94 % (42-75)
[2019-10-17] MEDS: methylPREDNISolone Sod Succ 40 MG VIAL IVP SCH ×3 (06:00→20:54)
[2019-10-17] MEDS: Apixaban 2.5 MG TAB PO SCH ×2 (07:44→20:51)
[2019-10-17] MEDS: Magnesium Oxide 400 MG TAB PO SCH (07:44)
[2019-10-17] MEDS: Digoxin 0.5 MG/2 ML AMP SLOW IVP SCH (07:44)
[2019-10-17] MEDS ORDERED: ALPRAZolam 0.25 MG TAB PO PRN (08:55)
--- NOTE | 2019-10-17 13:57 | PDOC.HOSPP ---
- Subjective Encounter Date: 10/17/19 Encounter Time: 13:00 Subjective: pateint denies fever chills nause or vomiting does complain of constipation of 8days of duration. also complains of dyspena, but this is improving - Objective Vital Signs & Weight: Vital Signs (12 hours) Temp Pulse Resp Pulse Ox 10/17/19 13:00 97.9 F 93 22 H 96 10/17/19 11:27 90 L 10/17/19 11:26 87 19 90 L 10/17/19 11:00 98.2 F 10/17/19 07:44 107 H 10/17/19 07:10 86 14 96 10/17/19 07:00 98.4 F 10/17/19 03:00 98.1 F 10/17/19 02:10 93 Weight Admit Weight 111 lb Weight 111 lb 8.862 oz Most Recent Monitor Data Heart Rate from ECG 90 NIBP 120/76 NIBP BP-Mean 90 Respiration from ECG 27 SpO2 95 I&O: 10/16/19 10/17/19 10/18/19 06:59 06:59 06:59 Intake Total 1542.8 1555.4 150 Output Total 1383 1435 230 Balance 159.8 120.4 -80 Result Diagrams: 10/17/19 04:05 10/17/19 04:05 Hospitalist ROS - Review of Systems All other systems reviewed; all pertinent +/- noted in HPI/Subj - Medication Medications: Active Medications Generic Name Dose Route Start Last Admin Trade Name Freq PRN Reason Stop Dose Admin Acetaminophen 650 mg 10/09/19 18:43 10/12/19 12:24 Tylenol PO 650 mg Q4H PRN Administration Headache/Fever/Mild Pain (1-3) Albuterol/Ipratropium 3 ml 10/09/19 22:30 10/17/19 13:00 Duoneb NEB 3 ml [id number] ALBERTA Administration Alprazolam 0.25 mg 10/17/19 09:15 10/17/19 09:19 Xanax PO 0.25 mg 5XD PRN Administration Anxiety Apixaban 2.5 mg 10/10/19 21:00 10/17/19 07:44 Eliquis PO 2.5 mg BID ALBERTA Administration Digoxin 0.125 mg 10/12/19 09:00 10/17/19 07:44 Lanoxin SLOW IVP 0.125 mg DAILY ALBERTA Administration Famotidine 20 mg 10/10/19 21:00 10/16/19 20:37 Pepcid PO 20 mg HS ALBERTA Administration Dexmedetomidine HCl 200 mcg/ 50 mls @ 0 mls/hr 10/14/19 14:15 10/17/19 13:21 Sodium Chloride IVPB 50 mls INF ALBERTA Administration Protocol Per Protocol Levofloxacin 750 mg/ Device 150 mls @ 100 mls/hr 10/17/19 09:00 10/17/19 07: 43 IVPB 150 mls 0900 ALBERTA Administration Magnesium Oxide 400 mg 10/10/19 09:00 10/17/19 07:44 Magnesium Oxide PO 400 mg DAILY ALBERTA Administration Methylprednisolone Sodium Succinate 20 mg 10/11/19 14:00 10/17/19 13:21 Solu-Medrol IVP 20 mg Q8HR ABLERTA Administration Potassium Chloride 40 meq 10/09/19 19:42 10/10/19 09:53 Klor-Con PER TUBE 40 meq ASDIR PRN Administration FOR SERUM K+ 2.5-3.5 Senna/Docusate Sodium 2 tab 10/09/19 18:43 10/16/19 20:46 Senokot S PO 2 tab BID PRN Administration Constipation Sterile Water 1 ml 10/09/19 19:29 10/15/19 05:05 Bacteriostatic Water FS 1 ml PRN PRN Administration RECONSTITUTION - Exam General Appearance: NAD, awake alert Eye: PERRL, anicteric sclera ENT: normocephalic atraumatic, no oropharyngeal lesions Neck: supple, symmetric, no JVD Heart: RRR, no murmur, no gallops, no rubs, normal peripheral pulses Respiratory: rhonchi, tachypneic, wheezes Gastrointestinal: soft, non-tender, non-distended, normal bowel sounds Neurological: cranial nerve grossly intact, normal sensation to touch, no focal deficits, no new deficit Psychiatric: normal affect, normal behavior, A&O x 3 Hosp A/P (1) Acute respiratory failure with hypoxia and hypercapnia Code(s): J96.01 - ACUTE RESPIRATORY FAILURE WITH HYPOXIA; J96.02 - ACUTE RESPIRATORY FAILURE WITH HYPERCAPNIA Status: Acute (2) Influenza A Code(s): J10.1 - FLU DUE TO OTH IDENT INFLUENZA VIRUS W OTH RESP MANIFEST Status: Acute (3) Atrial fibrillation with RVR Code(s): I48.91 - UNSPECIFIED ATRIAL FIBRILLATION Status: Acute (4) COPD exacerbation Code(s): J44.1 - CHRONIC OBSTRUCTIVE PULMONARY DISEASE W (ACUTE) EXACERBATION Status: Acute (5) HTN (hypertension) Code(s): I10 - ESSENTIAL (PRIMARY) HYPERTENSION Status: Chronic Qualifiers: Hypertension type: essential hypertension Qualified Code(s): I10 - Essential (primary) hypertension - Plan -s/p extubation, tolerating well fred -continue with high flow oxygen, weaning as tolerated -continue with resp support w steroids and nebs - continue abx and antiviral therapy -continue home meds for chronic conditions -prn bipap -dulcolax suppositories for constipation
[2019-10-17] MEDS: Bisacodyl 10 MG SUPP PR PRN (17:20)
[2019-10-17] MEDS: Famotidine 20 MG TAB PO SCH (20:51)
[2019-10-18 04:44] LABS: Anion Gap 10 mmol/L (10-20); BUN (Urea Nitrogen) 22 mg/dL (9.8-20.1); Calc. Creatinine Clearance 59 mL/min (70-130); Calcium 8.5 mg/dL (7.8-10.44); Carbon Dioxide 34 mmol/L (23-31); Chloride 96 mmol/L (98-107); Estimated GFR-MDRD Greater than 90; Glucose 101 mg/dL (83-110); Potassium 3.9 mmol/L (3.5-5.1); Sodium 136 mmol/L (136-145)
[2019-10-18 04:56] LABS: Hemoglobin 15.1 g/dL (12.0-16.0); Mean Corpuscular HGB CONC 32.9 g/dL (32.0-36.0); Mean Corpuscular Hemoglobin 31.3 pg (27.0-31.0); Mean Corpuscular Volume 95.2 fL (78.0-98.0); Mean Platelet Volume 8.3 fL (7.4-10.4); Platelet Count 183 thou/uL (130-400); RBC Distribution Width 12.1 % (11.5-14.5); Red Blood Cell (RBC) Count 4.82 mill/uL (4.20-5.40); White Blood Cell (WBC) Count 11.6 thou/uL (4.8-10.8)
[2019-10-18 05:14] LABS: Band 1 % (5-11); Lymphocytes 1 % (21-51); MDiff Complete? YES; Monocytes 5 % (0-10); Neutrophil 91 % (42-75); Platelet Morphology Comment Appears Adequate; Promyelocytes 2 % (0-0); RBC Morphology Normal
[2019-10-18] MEDS: methylPREDNISolone Sod Succ 40 MG VIAL IVP SCH (05:53)
[2019-10-18] MEDS: ALPRAZolam 0.25 MG TAB PO PRN (08:58)
[2019-10-18] MEDS: Apixaban 2.5 MG TAB PO SCH ×2 (08:59→20:38)
[2019-10-18] MEDS: Magnesium Oxide 400 MG TAB PO SCH (08:59)
[2019-10-18] MEDS: Digoxin 0.5 MG/2 ML AMP SLOW IVP SCH (08:59)
[2019-10-18] MEDS ORDERED: Furosemide 40 MG/4 ML VIAL SLOW IVP SCH (09:30)
--- NOTE | 2019-10-18 09:47 | PRG ---
DATE OF SERVICE: 10/18/2019 SERVICE: Pulmonary Medicine. INTERVAL HISTORY: The patient is doing fine from respiratory standpoint. She has been weaned down to 29% FiO2 delivered via high-flow nasal cannula. Denies any current chest discomfort, nausea or vomiting. Her appetite has picked up. She cleared well over half of her plate today. Her strength is improved. Otherwise, there has been no change to her condition. PHYSICAL EXAMINATION: VITAL SIGNS: Afebrile, pulse 125, blood pressure 163/111, respirations 28, saturation 96%, currently on 29% FiO2 delivered via high-flow nasal cannula. GENERAL: The patient is awake and alert, in no apparent distress. LUNGS: Wonderful air entry. No prolonged expiratory phase or wheezing is appreciated. HEART: Tachycardic. Irregular. ABDOMEN: Soft, nontender, and nondistended. Bowel sounds are positive. MUSCULOSKELETAL: No cyanosis or clubbing. There is 1+ pitting in the bilateral lower extremities. NEUROLOGIC: Grossly nonfocal. LABORATORY DATA: WBC 11.6, hemoglobin 15.1, platelets 183,000. Basic metabolic profile is essentially unremarkable except for a bicarb of 34. BUN 22. Blood cultures x2 and urine culture are negative to date. Influenza A is positive on the screen. ASSESSMENT: 1. Acute on chronic hypoxic respiratory failure. 2. Chronic obstructive pulmonary disease with acute exacerbation secondary to influenza A. 3. Atrial fibrillation with current rapid ventricular rate. DISCUSSION AND PLAN: She just got a dose of digoxin. We will see if this levels out her heart rate. She has a touch volume up and I gave her single dose of Lasix. She has had adequate course of Levaquin which will be discontinued. Femoral line and Shah catheter to be removed. We can transition her to the intermediate care unit. We will continue try weaning oxygen away through time. Hopefully, she will be able to tolerate a nasal cannula. She prefers using the BiPAP at night, which will be continued for the time being. Job ID: [id number]
--- NOTE | 2019-10-18 20:11 | PDOC.HOSPP ---
- Subjective Encounter Date: 10/18/19 Encounter Time: 19:00 Subjective: The patient has no complaints other than feeling tired. She has no cough or shortness of breath today. Just feels weak. She is on oxygen here, wasn't on it at home. She has COPD, states she got it from environmental exposure in addition to smoking - Objective Vital Signs & Weight: Vital Signs (12 hours) Temp Pulse Pulse Resp BP BP Pulse Ox 10/18/19 19:08 100 10/18/19 19:00 97.6 F 10/18/19 18:48 88 18 97 10/18/19 16:23 96 96/57 L 10/18/19 16:00 98.4 F 10/18/19 15:04 91 21 H 98 10/18/19 12:00 97.6 F 10/18/19 11:17 106 H 20 96 10/18/19 11:02 122 H 126/75 10/18/19 08:59 105 H Pulse Ox 10/18/19 19:08 10/18/19 19:00 10/18/19 18:48 10/18/19 16:23 96 10/18/19 16:00 10/18/19 15:04 10/18/19 12:00 10/18/19 11:17 10/18/19 11:02 10/18/19 08:59 Weight Admit Weight 111 lb Weight 113 lb 15.664 oz Most Recent Monitor Data Heart Rate from ECG 85 NIBP 101/70 NIBP BP-Mean 80 Respiration from ECG 16 SpO2 100 I&O: 10/17/19 10/18/19 10/19/19 06:59 06:59 06:59 Intake Total 1555.4 840 890 Output Total 5751 764 2319 Balance 120.4 210 -460 Result Diagrams: 10/18/19 03:50 10/18/19 03:50 Hospitalist ROS - Review of Systems Constitutional: denies: fever, chills - Medication Medications: Active Medications Generic Name Dose Route Start Last Admin Trade Name Freq PRN Reason Stop Dose Admin Acetaminophen 650 mg 10/09/19 18:43 10/12/19 12:24 Tylenol PO 650 mg Q4H PRN Administration Headache/Fever/Mild Pain (1-3) Albuterol/Ipratropium 3 ml 10/09/19 22:30 10/18/19 18:48 Duoneb NEB 3 ml [id number] ALBERTA Administration Alprazolam 0.25 mg 10/17/19 09:15 10/18/19 08:58 Xanax PO 0.25 mg 5XD PRN Administration Anxiety Apixaban 2.5 mg 10/10/19 21:00 10/18/19 08:59 Eliquis PO 2.5 mg BID ALBERTA Administration Bisacodyl 10 mg 10/17/19 13:53 10/17/19 17:20 Dulcolax [place] 10 mg DAILYPRN PRN Administration Constipation Famotidine 20 mg 10/10/19 21:00 10/17/19 20:51 Pepcid PO 20 mg HS ALBERTA Administration Levofloxacin 750 mg/ Device 150 mls @ 100 mls/hr 10/17/19 09:00 10/18/19 08: 58 IVPB 150 mls 0900 ALBERTA Administration Magnesium Oxide 400 mg 10/10/19 09:00 10/18/19 08:59 Magnesium Oxide PO 400 mg DAILY ALBERTA Administration Potassium Chloride 40 meq 10/09/19 19:42 10/10/19 09:53 Klor-Con PER TUBE 40 meq ASDIR PRN Administration FOR SERUM K+ 2.5-3.5 Senna/Docusate Sodium 2 tab 10/09/19 18:43 10/16/19 20:46 Senokot S PO 2 tab BID PRN Administration Constipation Sterile Water 1 ml 10/09/19 19:29 10/15/19 05:05 Bacteriostatic Water FS 1 ml PRN PRN Administration RECONSTITUTION - Exam General Appearance: NAD, awake alert Eye: PERRL, anicteric sclera ENT: normocephalic atraumatic Neck: supple, symmetric, no JVD Heart: RRR, no murmur, no gallops, no rubs Respiratory: CTAB, no wheezes, no rales, no ronchi Gastrointestinal: soft Gastrointestinal - other findings: LUQ aNd LLQ tenderness Neurological: cranial nerve grossly intact, normal sensation to touch, no focal deficits, no new deficit Hosp A/P - Plan Chest X ray 10/15: mild pulmonary edema ECHO: EF 60-65% This is an 84 year old female who presented with hypoxia at PCP office and required intubation. SHe is currently extubated on nasal cannula Acute hypoxic respiratory failure secondary to COPD exacerbation with influenza A and mild pulm edema - continue IV levaquin day 3, breathing treatments prn - weaned off IV steroids - add tamifliu - lasix 40 mg IV today - continue PTOT #Hypertension #CAD #Afib- - continue aspirin, eliquis, metoprolol, diltiazem DVT prophylaxis: eliquis
[2019-10-18] MEDS: Metoprolol Tartrate 25 MG TAB PO SCH (20:38)
[2019-10-18] MEDS: Famotidine 20 MG TAB PO SCH (20:38)
[2019-10-18] MEDS: Oseltamivir 75 MG CAP PO SCH (21:06)
[2019-10-19 04:47] LABS: Hemoglobin 14.5 g/dL (12.0-16.0); Lymphocytes 2 % (21-51); MDiff Complete? YES; Mean Corpuscular HGB CONC 33.2 g/dL (32.0-36.0); Mean Corpuscular Hemoglobin 31.7 pg (27.0-31.0); Mean Corpuscular Volume 95.7 fL (78.0-98.0); Mean Platelet Volume 8.2 fL (7.4-10.4); Monocytes 19 % (0-10); Neutrophil 79 % (42-75); Platelet Count 186 thou/uL (130-400); Platelet Morphology Comment Appears Adequate; RBC Morphology Normal; Red Blood Cell (RBC) Count 4.57 mill/uL (4.20-5.40); White Blood Cell (WBC) Count 13.3 thou/uL (4.8-10.8)
[2019-10-19 04:57] LABS: Anion Gap 10 mmol/L (10-20); BUN (Urea Nitrogen) 22 mg/dL (9.8-20.1); Calc. Creatinine Clearance 51 mL/min (70-130); Calcium 8.6 mg/dL (7.8-10.44); Carbon Dioxide 37 mmol/L (23-31); Chloride 93 mmol/L (98-107); Estimated GFR-MDRD 86; Glucose 103 mg/dL (83-110); Potassium 3.7 mmol/L (3.5-5.1); Sodium 136 mmol/L (136-145)
[2019-10-19 05:01] LABS: Phosphorus 2.8 mg/dL (2.3-4.7)
[2019-10-19] MEDS: predniSONE 20 MG TAB PO SCH (08:48)
[2019-10-19] MEDS: Apixaban 2.5 MG TAB PO SCH ×2 (08:49→20:12)
[2019-10-19] MEDS: Magnesium Oxide 400 MG TAB PO SCH (08:50)
[2019-10-19] MEDS: Metoprolol Tartrate 25 MG TAB PO SCH ×2 (08:50→20:12)
[2019-10-19] MEDS: Oseltamivir 75 MG CAP PO SCH (08:51)
--- NOTE | 2019-10-19 12:05 | PRG ---
DATE OF SERVICE: 10/19/2019 SERVICE: Pulmonary Medicine. INTERVAL HISTORY: The patient is doing really well from respiratory standpoint. She has been weaned down to 1 L nasal cannula. Saturations are fine. She indicates she would like to go home. That being said, she still demonstrates a little bit of weakness. There were no overnight events. The patient has no specific complaints this morning. PHYSICAL EXAMINATION: VITAL SIGNS: Afebrile, pulse 88, blood pressure 105/81, respirations 26, saturation 92% on 1.5 L nasal cannula. GENERAL: The patient is awake and alert, in no apparent distress. LUNGS: Good air entry bilaterally. There are minimal dependent crackles. No prolonged expiratory phase or wheezing is appreciated. HEART: Normal rate, regular. ABDOMEN: Soft, nontender, and nondistended. Bowel sounds are positive. MUSCULOSKELETAL: No cyanosis or clubbing. The pitting edema has improved. NEUROLOGIC: Grossly nonfocal. LABORATORY DATA: WBC 13.3. Basic metabolic profile is otherwise unremarkable. The neutrophil count is improving, and her monocyte count has rebounded beautifully. Basic metabolic profile is otherwise unremarkable. Magnesium and phosphorous is negative. Urinalysis is negative. Influenza A and B are negative. Blood cultures x2 and urine culture negative to date. ASSESSMENT: 1. Acute on chronic hypoxic respiratory failure, much improved. 2. Chronic obstructive pulmonary disease with acute exacerbation secondary to influenza A, resolving. 3. Atrial fibrillation with good rate control. DISCUSSION AND PLAN: The patient is doing fine from respiratory standpoint. She can be transitioned out of the ICU to the telemetry or medical unit. Pulmonary Critical Care will continue to follow along. Job ID: [id number]
--- NOTE | 2019-10-19 16:21 | PDOC.HOSPP ---
- Subjective Encounter Date: 10/19/19 Encounter Time: 15:30 Subjective: The patient states that her cough has improved and she is not coughing constantly anymore. Feels prednisone has helped. No chest tightness Patient has weaned down to 1L. Pt still is weak on exertion, says she lives with her in [place], they have been for 86 years. She is hoping to be independent prior to d/c - Objective Vital Signs & Weight: Vital Signs (12 hours) Temp Pulse Resp BP BP Pulse Ox 10/19/19 16:00 97.7 F 77 20 95/65 95 10/19/19 12:03 97.7 F 10/19/19 12:00 97/76 10/19/19 10:57 88 26 H 92 L 10/19/19 08:49 82 98/61 10/19/19 08:00 97.5 F L 10/19/19 07:40 97 10/19/19 07:17 90 L 10/19/19 07:16 85 28 H 90 L Weight Admit Weight 111 lb Weight 113 lb 1.554 oz Most Recent Monitor Data Heart Rate from ECG 88 NIBP 105/81 NIBP BP-Mean 89 Respiration from ECG 24 SpO2 95 I&O: 10/18/19 10/19/19 10/20/19 06:59 06:59 06:59 Intake Total 840 890 580 Output Total 630 1750 200 Balance 210 -860 380 Result Diagrams: 10/19/19 04:03 10/19/19 04:06 Hospitalist ROS - Review of Systems Constitutional: denies: fever, chills - Medication Medications: Active Medications Generic Name Dose Route Start Last Admin Trade Name Freq PRN Reason Stop Dose Admin Acetaminophen 650 mg 10/09/19 18:43 10/12/19 12:24 Tylenol PO 650 mg Q4H PRN Administration Headache/Fever/Mild Pain (1-3) Albuterol/Ipratropium 3 ml 10/09/19 22:30 10/19/19 10:57 Duoneb NEB 3 ml [id number] ALBERTA Administration Alprazolam 0.25 mg 10/17/19 09:15 10/18/19 08:58 Xanax PO 0.25 mg 5XD PRN Administration Anxiety Apixaban 2.5 mg 10/10/19 21:00 10/19/19 08:49 Eliquis PO 2.5 mg BID ALBERTA Administration Bisacodyl 10 mg 10/17/19 13:53 10/17/19 17:20 Dulcolax [place] 10 mg DAILYPRN PRN Administration Constipation Diltiazem HCl 120 mg 10/19/19 09:00 10/19/19 08:49 Cardizem Cd PO 120 mg DAILY ALBERTA Administration Famotidine 20 mg 10/10/19 21:00 10/18/19 20:38 Pepcid PO 20 mg HS ALBERTA Administration Levofloxacin 750 mg/ Device 150 mls @ 100 mls/hr 10/17/19 09:00 10/19/19 08: 50 IVPB 150 mls 0900 ALBERTA Administration Magnesium Oxide 400 mg 10/10/19 09:00 10/19/19 08:50 Magnesium Oxide PO 400 mg DAILY ALBERTA Administration Metoprolol Tartrate 12.5 mg 10/18/19 21:00 10/19/19 08:50 Lopressor PO Not Given BID [facility] Potassium Chloride 40 meq 10/09/19 19:42 10/10/19 09:53 Klor-Con PER TUBE 40 meq ASDIR PRN Administration FOR SERUM K+ 2.5-3.5 Prednisone 40 mg 10/19/19 08:00 10/19/19 08:48 Prednisone PO 40 mg QAM-WM ALBERTA Administration Senna/Docusate Sodium 2 tab 10/09/19 18:43 10/16/19 20:46 Senokot S PO 2 tab BID PRN Administration Constipation Sterile Water 1 ml 10/09/19 19:29 10/15/19 05:05 Bacteriostatic Water FS 1 ml PRN PRN Administration RECONSTITUTION - Exam General Appearance: NAD, awake alert Eye: PERRL, anicteric sclera ENT: normocephalic atraumatic, no oropharyngeal lesions Neck: no JVD Heart: RRR, no murmur, no gallops, no rubs Respiratory: CTAB, no wheezes, no rales, no ronchi Gastrointestinal: soft, non-tender, non-distended, normal bowel sounds Extremities: no cyanosis, no clubbing, no edema Skin: normal turgor, no lesions, no rashes Hosp A/P - Plan Chest X ray 10/15: mild pulmonary edema ECHO: EF 60-65% This is an 84 year old female who presented with hypoxia at PCP office and required intubation. SHe is currently extubated on nasal cannula Acute hypoxic respiratory failure secondary to COPD exacerbation with influenza A and mild pulm edema - continue IV levaquin day 4, breathing treatments prn. Add symbicort - weaned off IV steroids, transitioned to oral prednisone - continue PTOT. They are recommending rehab as of 10/17 - wean oxygen to 92% #Hypertension #CAD #Afib- - continue aspirin, eliquis, metoprolol, diltiazem DVT prophylaxis: eliquis
[2019-10-19] MEDS: Mometasone/Formoterol 120 PUFF INHALER INH SCH (18:28)
[2019-10-19] MEDS: Famotidine 20 MG TAB PO SCH (20:12)
[2019-10-19] MEDS: ALPRAZolam 0.25 MG TAB PO PRN (20:12)
[2019-10-19] MEDS ORDERED: Oseltamivir 75 MG CAP PO SCH (21:00)
[2019-10-20 06:11] LABS: BUN (Urea Nitrogen) 18 mg/dL (9.8-20.1); Calc. Creatinine Clearance 51 mL/min (70-130); Calcium 8.6 mg/dL (7.8-10.44); Estimated GFR-MDRD 88; Glucose 108 mg/dL (83-110); Magnesium 2.1 mg/dL (1.6-2.6)
[2019-10-20 06:12] LABS: Phosphorus 2.9 mg/dL (2.3-4.7)
[2019-10-20 06:20] LABS: Anion Gap 9 mmol/L (10-20); Carbon Dioxide 39 mmol/L (23-31); Chloride 93 mmol/L (98-107); Potassium 4.1 mmol/L (3.5-5.1); Sodium 137 mmol/L (136-145)
[2019-10-20 07:28] LABS: Hemoglobin 13.9 g/dL (12.0-16.0); Mean Corpuscular HGB CONC 31.9 g/dL (32.0-36.0); Mean Corpuscular Hemoglobin 30.9 pg (27.0-31.0); Mean Corpuscular Volume 96.7 fL (78.0-98.0); Platelet Count 201 thou/uL (130-400); RBC Distribution Width 11.9 % (11.5-14.5); Red Blood Cell (RBC) Count 4.51 mill/uL (4.20-5.40)
[2019-10-20 07:33] LABS: Band 5 % (5-11); Lymphocytes 11 % (21-51); MDiff Complete? YES; Monocytes 7 % (0-10); Neutrophil 77 % (42-75); RBC Morphology Normal
[2019-10-20] MEDS: Mometasone/Formoterol 120 PUFF INHALER INH SCH ×2 (07:54→19:14)
[2019-10-20 08:01] LABS: pH, Arterial 7.24 (7.35-7.45)
[2019-10-20 08:02] LABS: CO2 Tension 95.3 mmHg (35.0-45.0)
[2019-10-20 08:03] LABS: Base Excess (BEa) 8.6 mEq/L (-2.0 to +3.0); Hemoglobin (Hb) 14.3 g/dL (12.0-16.0); O2 Tension (PaO2) 149.8 mmHg (> 60.0)
[2019-10-20 08:04] LABS: Calcium, Ionized 1.23 mmol/L (1.12-1.30); Carboxyhemoglobin (COHb) 1.6 gm% (0.0-3.0); Potassium - ABG Lab 3.83 mmol/L (3.70-5.30)
[2019-10-20 08:05] LABS: ALV-art Gradient 158.875 (0-20); Puncture Site LRA
--- NOTE | 2019-10-20 08:54 | PRG ---
DATE OF SERVICE: 10/20/2019 SUBJECTIVE: I was called by the nurse on the 4th floor. The patient was having hypoxemia. They put her on a Venti mask to do a blood gas which showed a pH of 7.24, pCO2 of 95, PO2 of 149. She has subsequently been transferred down to the ICU for initiation of BiPAP. OBJECTIVE: GENERAL: She does not currently appear to be in much distress on the BiPAP. VITAL SIGNS: Heart rate is 80, blood pressure 95/69, O2 saturation 95%, respiratory rate 23. HEENT: Unremarkable. NECK: No JVD. LUNGS: Poor air movement. CARDIAC: S1, S2 regular. ABDOMEN: Soft. EXTREMITIES: No edema. LABORATORY DATA: Remainder of labs show a white blood cell count 10, hematocrit 43, and platelet count 201. Sodium 137, potassium 4.1, chloride 93, CO2 of 39, BUN 18, creatinine 0.6, glucose 108. ASSESSMENT: 1. Acute on chronic respiratory failure. 2. Chronic obstructive pulmonary disease. 3. Atrial fibrillation. PLAN: The patient will be placed on BiPAP and monitored. We will need to continue steroids, nebulization treatments. We will follow. Job ID: [id number]
[2019-10-20] MEDS ORDERED: acetaZOLAMIDE Sodium 500 mg Vial IVP SCH (09:15)
--- NOTE | 2019-10-20 09:38 | PRG ---
DATE OF SERVICE: 10/17/2019 SUBJECTIVE: Nicolasa Zamora is sitting up in a chair. She has high-flow O2 on, she wore BiPAP last night. OBJECTIVE: VITAL SIGNS: Heart rates blood pressure 125/82 LUNGS: wheezes. HEART: Regular rhythm. ABDOMEN: Soft. EXTREMITIES: Without asymmetry. LABORATORY: White count 13.7, hemoglobin 13.6, platelets 145. Electrolytes are unremarkable. Sodium 138, potassium 4.4, chloride 99, bicarb 33, BUN 17, creatinine 0.4. IMPRESSION: Status post respiratory failure with underlying chronic obstructive pulmonary disease, chronic hypoxic respiratory failure, influenza. She is progressing, although she is extremely deconditioned. critical care unit now given her requirements for BiPAP. We will stop her Precedex today. She has significant anxiety and she will be treated with a low dose of Xanax intermittently. Pleased with her progress although progressing slowly. Job ID: [id number]
[2019-10-20] MEDS: predniSONE 20 MG TAB PO SCH (10:29)
[2019-10-20] MEDS: Apixaban 2.5 MG TAB PO SCH ×2 (10:33→20:04)
--- NOTE | 2019-10-20 12:26 | RAD ---
EXAM: XR Chest 1 View Portable PROVIDED CLINICAL HISTORY: Shortness of breath COMPARISON: 10/15/2019 FINDINGS: Cardiac and mediastinal silhouette is unchanged in appearance. Interval extubation and removal of ent mary catheter. Left subclavian cardiac pacing device and atherosclerosis are redemonstrated. Extensive chronic obstructive changes are again seen. No focal consolidation, pleural fluid or pneumo thorax apparent. IMPRESSION: No definite evidence for an acute cardiopulmonary process.
[2019-10-20] MEDS: ALPRAZolam 0.25 MG TAB PO PRN (14:02)
[2019-10-20] MEDS: Metoprolol Tartrate 25 MG TAB PO SCH ×2 (14:02→20:08)
[2019-10-20] MEDS: Magnesium Oxide 400 MG TAB PO SCH (14:03)
--- NOTE | 2019-10-20 18:06 | PDOC.HOSPP ---
- Subjective Encounter Date: 10/20/19 Encounter Time: 12:00 Subjective: The patient was transferred back to CCU due to lethargy, was found yennifer hypercapneic and acidotic. She was placed back on BIPAP She has some SOB, no chest pain or cough. Was given diamox this am per nursing staff She also retained 750of urine, straight cath done. - Objective Vital Signs & Weight: Vital Signs (12 hours) Temp Pulse Resp BP Pulse Ox 10/20/19 16:00 98.1 F 90 L 10/20/19 14:03 74 30 H 92 L 10/20/19 14:02 77 73/55 L 10/20/19 11:00 97.9 F 10/20/19 10:43 77 94 L 10/20/19 10:42 77 23 H 94 L 10/20/19 08:35 21 H 96 10/20/19 08:20 85 10/20/19 07:54 71 16 10/20/19 07:51 75 28 H Weight Admit Weight 111 lb Weight 113 lb 1.554 oz Most Recent Monitor Data Heart Rate from ECG 79 NIBP 94/58 NIBP BP-Mean 70 Respiration from ECG 31 SpO2 95 I&O: 10/19/19 10/20/19 10/21/19 06:59 06:59 06:59 Intake Total 890 580 980 Output Total 1750 200 Balance -860 380 980 Result Diagrams: 10/20/19 05:07 10/20/19 05:07 Hospitalist ROS - Review of Systems Respiratory: denies: cough, dry, shortness of breath Cardiovascular: denies: chest pain, light headedness - Medication Medications: Active Medications Generic Name Dose Route Start Last Admin Trade Name Freq PRN Reason Stop Dose Admin Acetaminophen 650 mg 10/09/19 18:43 10/12/19 12:24 Tylenol PO 650 mg Q4H PRN Administration Headache/Fever/Mild Pain (1-3) Albuterol/Ipratropium 3 ml 10/09/19 22:30 10/20/19 14:03 Duoneb NEB 3 ml [id number] ALBERTA Administration Alprazolam 0.25 mg 10/17/19 09:15 10/20/19 14:02 Xanax PO 0.25 mg 5XD PRN Administration Anxiety Apixaban 2.5 mg 10/10/19 21:00 10/20/19 10:33 Eliquis PO 2.5 mg BID ALBERTA Administration Bisacodyl 10 mg 10/17/19 13:53 10/17/19 17:20 Dulcolax [place] 10 mg DAILYPRN PRN Administration Constipation Diltiazem HCl 120 mg 10/19/19 09:00 10/20/19 14:02 Cardizem Cd PO Not Given DAILY ALBERTA Famotidine 20 mg 10/10/19 21:00 10/19/19 20:12 Pepcid PO 20 mg HS ALBERTA Administration Levofloxacin 750 mg/ Device 150 mls @ 100 mls/hr 10/17/19 09:00 10/20/19 10: 17 IVPB 150 mls 0900 ALBERTA Administration Magnesium Oxide 400 mg 10/10/19 09:00 10/20/19 14:03 Magnesium Oxide PO Not Given DAILY ALBERTA Metoprolol Tartrate 12.5 mg 10/18/19 21:00 10/20/19 14:02 Lopressor PO Not Given BID ALBERTA Mometasone Furoate/Formoterol Fumar 1 puff 10/19/19 18:30 10/20/19 07:54 Dulera 200 Mcg/5 Mcg Inhaler INH 1 puff BID-RT ALBERTA Administration Potassium Chloride 40 meq 10/09/19 19:42 10/10/19 09:53 Klor-Con PER TUBE 40 meq ASDIR PRN Administration FOR SERUM K+ 2.5-3.5 Prednisone 40 mg 10/19/19 08:00 10/20/19 10:29 Prednisone PO 40 mg QAM-WM ALBERTA Administration Senna/Docusate Sodium 2 tab 10/09/19 18:43 10/16/19 20:46 Senokot S PO 2 tab BID PRN Administration Constipation Sodium Chloride 10 ml 10/19/19 21:00 10/20/19 14:03 Flush - Normal Saline IVF 10 ml Q12HR ALBERTA Administration Sterile Water 1 ml 10/09/19 19:29 10/15/19 05:05 Bacteriostatic Water FS 1 ml PRN PRN Administration RECONSTITUTION - Exam General Appearance: NAD, awake alert General - other findings: on BIPAP Eye: PERRL, anicteric sclera ENT: normocephalic atraumatic, no oropharyngeal lesions Neck: no JVD Heart: RRR, no murmur, no gallops, no rubs Respiratory: CTAB, no wheezes, no rales, no ronchi Gastrointestinal: soft, non-tender, non-distended Extremities: no edema Hosp A/P - Plan Chest X ray 10/15: mild pulmonary edema ECHO: EF 60-65% This is an 84 year old female who presented with hypoxia at PCP office and required intubation. SHe is currently extubated on nasal cannula Acute hypoxic respiratory failure secondary to COPD exacerbation with influenza A and mild pulm edema Acute resp acidosis from COPD exacerbation - continue IV levaquin day 5, breathing treatments prn and symbicort - weaned off IV steroids, transitioned to oral prednisone 10/18, however will restart IV steroid due to new BIPAP requirement - continue PTOT. They are recommending rehab as of 10/17 - wean oxygen to 92% #Hypertension #CAD #Afib- - continue aspirin, eliquis, metoprolol, diltiazem DVT prophylaxis: eliquis
[2019-10-20] MEDS ORDERED: methylPREDNISolone Sod Succ 40 MG VIAL IVP SCH (18:15)
[2019-10-20] MEDS: Famotidine 20 MG TAB PO SCH (20:04)
[2019-10-21 04:03] LABS: Phosphorus 2.4 mg/dL (2.3-4.7)
[2019-10-21 04:07] LABS: Anion Gap 8 mmol/L (10-20); BUN (Urea Nitrogen) 18 mg/dL (9.8-20.1); Calc. Creatinine Clearance 55 mL/min (70-130); Calcium 8.1 mg/dL (7.8-10.44); Carbon Dioxide 35 mmol/L (23-31); Chloride 96 mmol/L (98-107); Estimated GFR-MDRD Greater than 90; Glucose 102 mg/dL (83-110); Magnesium 1.9 mg/dL (1.6-2.6); Potassium 3.7 mmol/L (3.5-5.1); Sodium 135 mmol/L (136-145)
[2019-10-21 04:34] LABS: Band 1 % (5-11); Hemoglobin 13.2 g/dL (12.0-16.0); Lymphocytes 2 % (21-51); MDiff Complete? YES; Mean Corpuscular HGB CONC 32.3 g/dL (32.0-36.0); Mean Corpuscular Hemoglobin 31.2 pg (27.0-31.0); Mean Corpuscular Volume 96.6 fL (78.0-98.0); Mean Platelet Volume 7.9 fL (7.4-10.4); Monocytes 4 % (0-10); Neutrophil 93 % (42-75); Platelet Count 163 thou/uL (130-400); RBC Distribution Width 11.8 % (11.5-14.5); Red Blood Cell (RBC) Count 4.24 mill/uL (4.20-5.40); White Blood Cell (WBC) Count 8.4 thou/uL (4.8-10.8)
[2019-10-21] MEDS: Mometasone/Formoterol 120 PUFF INHALER INH SCH ×2 (07:10→20:10)
--- NOTE | 2019-10-21 08:29 | PRG ---
DATE OF SERVICE: 10/21/2019 SUBJECTIVE: She is awake and alert this morning, feels much better, did wear noninvasive ventilation last night. OBJECTIVE: VITAL SIGNS: Temperature is 97.9, pulse 87, blood pressure 123/79, and O2 saturation in the 80s to 90s. HEENT: Unremarkable. NECK: No adenopathy or JVD. LUNGS: Poor air movement. No wheezing. CARDIAC: S1 and S2. Regular. ABDOMEN: Soft. EXTREMITIES: Trace edema throughout. LABORATORY DATA: White blood cell count 8.4, hematocrit 40, and platelet count 163. Sodium 135, potassium 3.7, chloride 96, CO2 of 35, BUN 18, creatinine 0.6, and glucose 102. ASSESSMENT: 1. Chronic respiratory failure secondary to chronic obstructive pulmonary disease. 2. Metabolic alkalosis, slowly improved on Diamox. 3. Chronic atrial fibrillation. PLAN: 1. I am prescribing noninvasive positive-pressure ventilation with Trelegy ventilation for this patient for nighttime and for as needed daytime use, because she has underlying chronic respiratory failure secondary to COPD that has not been responding to conventional therapy. Conventional BiPAP would not be adequate for treatment of this issue. 2. Transfer out to [facility] when bed is available. 3. Continue steroids, nebulization therapy. Job ID: [id number] [facility]
[2019-10-21] MEDS: acetaZOLAMIDE Sodium 500 mg Vial IVP SCH (09:07)
[2019-10-21] MEDS: Magnesium Oxide 400 MG TAB PO SCH (09:08)
[2019-10-21] MEDS: Metoprolol Tartrate 25 MG TAB PO SCH ×2 (09:08→20:08)
[2019-10-21] MEDS: Apixaban 2.5 MG TAB PO SCH ×2 (09:13→20:08)
[2019-10-21] MEDS: methylPREDNISolone Sod Succ 40 MG VIAL IVP SCH (09:13)
[2019-10-21] MEDS: Acetaminophen 325 MG TAB PO PRN (09:47)
[2019-10-21] MEDS: predniSONE 20 MG TAB PO SCH (10:19)
--- NOTE | 2019-10-21 18:43 | PDOC.HOSPP ---
- Subjective Encounter Date: 10/21/19 Encounter Time: 18:00 Subjective: f/u copd exacerbation Patient is feeling much better. Cough has improved. SOB improved. No chest pain. She is back down to nasal cannula. She worked with PT today and did better. - Objective Vital Signs & Weight: Vital Signs (12 hours) Temp Pulse Pulse Pulse Resp BP BP 10/21/19 16:00 98.3 F 10/21/19 14:22 108 H 110 H 104/85 131/81 10/21/19 14:09 97 23 H 10/21/19 11:00 97.7 F 10/21/19 10:14 98 29 H 10/21/19 08:00 97.9 F 10/21/19 07:11 75 10/21/19 07:10 81 25 H Pulse Ox Pulse Ox Pulse Ox 10/21/19 16:00 10/21/19 14:22 100 94 L 10/21/19 14:09 92 L 10/21/19 11:00 10/21/19 10:14 98 10/21/19 08:00 10/21/19 07:11 10/21/19 07:10 98 Weight Admit Weight 111 lb Weight 111 lb 1.808 oz Most Recent Monitor Data Heart Rate from ECG 103 NIBP 92/74 NIBP BP-Mean 80 Respiration from ECG 27 SpO2 87 I&O: 10/20/19 10/21/19 10/22/19 06:59 06:59 06:59 Intake Total 580 1280 220 Output Total 200 1315 380 Balance 380 -35 -160 Result Diagrams: 10/21/19 03:18 10/21/19 03:18 Hospitalist ROS - Review of Systems Constitutional: denies: fever, chills Gastrointestinal: denies: nausea, vomiting, abdominal pain - Medication Medications: Active Medications Generic Name Dose Route Start Last Admin Trade Name Freq PRN Reason Stop Dose Admin Acetaminophen 650 mg 10/09/19 18:43 10/21/19 09:47 Tylenol PO 650 mg Q4H PRN Administration Headache/Fever/Mild Pain (1-3) Acetazolamide Sodium 250 mg 10/21/19 09:00 10/21/19 09:07 Diamox IVP 250 mg DAILY ALBERTA Administration Albuterol/Ipratropium 3 ml 10/09/19 22:30 10/21/19 14:09 Duoneb NEB 3 ml [id number] ALBERTA Administration Alprazolam 0.25 mg 10/17/19 09:15 10/20/19 14:02 Xanax PO 0.25 mg 5XD PRN Administration Anxiety Apixaban 2.5 mg 10/10/19 21:00 10/21/19 09:13 Eliquis PO 2.5 mg BID ALBERTA Administration Bisacodyl 10 mg 10/17/19 13:53 10/17/19 17:20 Dulcolax [place] 10 mg DAILYPRN PRN Administration Constipation Diltiazem HCl 120 mg 10/19/19 09:00 10/21/19 09:08 Cardizem Cd PO Not Given DAILY ALBERTA Famotidine 20 mg 10/10/19 21:00 10/20/19 20:04 Pepcid PO 20 mg HS ALBERTA Administration Magnesium Oxide 400 mg 10/10/19 09:00 10/21/19 09:08 Magnesium Oxide PO 400 mg DAILY ALBERTA Administration Methylprednisolone Sodium Succinate 40 mg 10/21/19 09:00 10/21/19 09:13 Solu-Medrol IVP 40 mg DAILY ALBERTA Administration Metoprolol Tartrate 12.5 mg 10/18/19 21:00 10/21/19 09:08 Lopressor PO Not Given BID ALBERTA Mometasone Furoate/Formoterol Fumar 1 puff 10/19/19 18:30 10/21/19 07:10 Dulera 200 Mcg/5 Mcg Inhaler INH 1 puff BID-RT ALBERTA Administration Potassium Chloride 40 meq 10/09/19 19:42 10/10/19 09:53 Klor-Con PER TUBE 40 meq ASDIR PRN Administration FOR SERUM K+ 2.5-3.5 Senna/Docusate Sodium 2 tab 10/09/19 18:43 10/16/19 20:46 Senokot S PO 2 tab BID PRN Administration Constipation Sodium Chloride 10 ml 10/19/19 21:00 10/21/19 09:08 Flush - Normal Saline IVF 10 ml Q12HR ALBERTA Administration Sterile Water 1 ml 10/09/19 19:29 10/15/19 05:05 Bacteriostatic Water FS 1 ml PRN PRN Administration RECONSTITUTION - Exam General Appearance: NAD, awake alert General - other findings: on nasal cannula Eye: anicteric sclera ENT: no oropharyngeal lesions Neck: supple, symmetric, no JVD Heart: RRR, no murmur, no gallops, no rubs Respiratory: CTAB, no wheezes, no rales, no ronchi Gastrointestinal: soft, non-tender, non-distended, normal bowel sounds Extremities: no cyanosis, no clubbing, no edema Skin: normal turgor, no lesions, no rashes Neurological: cranial nerve grossly intact, normal sensation to touch, no focal deficits, no new deficit Hosp A/P - Plan Chest X ray 10/15: mild pulmonary edema ECHO: EF 60-65% Chest Xray 10/19: normal This is an 84 year old female who presented with hypoxia at PCP office and required intubation. SHe is currently extubated on nasal cannula Acute hypoxic respiratory failure secondary to COPD exacerbation with influenza A and mild pulm edema Acute resp acidosis from COPD exacerbation - continue breathing treatments prn and symbicort - weaned off IV steroids, transitioned to oral prednisone 10/18, restarted IV prednisone 60 mg 10/19 due to BIPAP requirement. Repeat chest X ray 10/19 is normal , discontinued levaquin, received this for five days - continue PTOT. They are recommending rehab as of 10/17 - wean oxygen to 92% #Hypertension #CAD #Afib- - continue aspirin, eliquis, metoprolol, diltiazem DVT prophylaxis: eliquis
[2019-10-21] MEDS: Famotidine 20 MG TAB PO SCH (20:08)
[2019-10-22 04:11] LABS: Phosphorus 2.5 mg/dL (2.3-4.7)
[2019-10-22 04:12] LABS: Anion Gap 7 mmol/L (10-20); BUN (Urea Nitrogen) 20 mg/dL (9.8-20.1); Calc. Creatinine Clearance 49 mL/min (70-130); Calcium 8.2 mg/dL (7.8-10.44); Carbon Dioxide 35 mmol/L (23-31); Chloride 97 mmol/L (98-107); Estimated GFR-MDRD 86; Glucose 97 mg/dL (83-110); Magnesium 2.1 mg/dL (1.6-2.6); Potassium 3.6 mmol/L (3.5-5.1); Sodium 135 mmol/L (136-145)
[2019-10-22 04:25] LABS: Hemoglobin 12.2 g/dL (12.0-16.0); Mean Corpuscular HGB CONC 32.7 g/dL (32.0-36.0); Mean Corpuscular Hemoglobin 31.2 pg (27.0-31.0); Mean Corpuscular Volume 95.6 fL (78.0-98.0); Mean Platelet Volume 7.7 fL (7.4-10.4); Platelet Count 155 thou/uL (130-400); RBC Distribution Width 11.8 % (11.5-14.5); Red Blood Cell (RBC) Count 3.89 mill/uL (4.20-5.40); White Blood Cell (WBC) Count 8.6 thou/uL (4.8-10.8)
[2019-10-22 05:07] LABS: Band 6 % (5-11); Lymphocytes 2 % (21-51); MDiff Complete? YES; Monocytes 7 % (0-10); Neutrophil 85 % (42-75)
[2019-10-22] MEDS: Apixaban 2.5 MG TAB PO SCH ×2 (07:31→20:11)
[2019-10-22] MEDS: Magnesium Oxide 400 MG TAB PO SCH (07:32)
[2019-10-22] MEDS: Metoprolol Tartrate 25 MG TAB PO SCH ×2 (07:33→20:12)
[2019-10-22] MEDS: methylPREDNISolone Sod Succ 40 MG VIAL IVP SCH (07:33)
[2019-10-22] MEDS: acetaZOLAMIDE Sodium 500 mg Vial IVP SCH (07:33)
[2019-10-22] MEDS: Mometasone/Formoterol 120 PUFF INHALER INH SCH ×2 (08:02→18:10)
--- NOTE | 2019-10-22 09:03 | PRG ---
DATE OF SERVICE: 10/22/2019 SUBJECTIVE: Ms. Zamora is doing better. She wore the BiPAP machine last night. I have ordered her a trilogy machine for the house. OBJECTIVE: VITAL SIGNS: Her temperature is 97.7, pulse 99, blood pressure 82/60, and O2 sat 94%. HEENT: Unremarkable. NECK: No adenopathy or JVD. LUNGS: Clear anteriorly. CARDIAC: S1 and S2, regular. ABDOMEN: Soft. EXTREMITIES: Decreased edema. LABORATORY DATA: White blood cell count 8.6, hematocrit 37.2, and platelet count 155. Sodium 135, potassium 3.6, chloride 97, CO2 of 35, BUN 20, creatinine 0.6, and glucose 97. ASSESSMENT: 1. Chronic obstructive pulmonary disease with exacerbation. 2. Metabolic alkalosis. 3. Edema. PLAN: 1. Go ahead and switch her over to oral antibiotics, steroids, diuretics. 2. Hopefully home soon. Job ID: [id number]
[2019-10-22] MEDS: AcetaZOLAMIDE 250 MG TAB PO SCH (09:11)
[2019-10-22] MEDS: predniSONE 20 MG TAB PO SCH (09:12)
--- NOTE | 2019-10-22 14:25 | PDOC.HOSPP ---
- Subjective Encounter Date: 10/22/19 Encounter Time: 10:30 Subjective: F/u: COPD Patient is sitting up in bed. She denies significant cough. She walked around with PT today. She has been weaned down to nasal cannula - Objective Vital Signs & Weight: Vital Signs (12 hours) Temp Pulse Pulse Pulse Resp BP BP 10/22/19 11:14 97.4 F L 10/22/19 10:56 91 18 10/22/19 09:49 87 83 97/82 10/22/19 08:04 100 16 10/22/19 08:02 100 16 10/22/19 08:00 10/22/19 07:40 97.7 F 10/22/19 07:31 104 H 90/72 10/22/19 03:15 98.0 F BP Pulse Ox 10/22/19 11:14 10/22/19 10:56 98 10/22/19 09:49 99/76 10/22/19 08:04 97 10/22/19 08:02 97 10/22/19 08:00 95 10/22/19 07:40 10/22/19 07:31 10/22/19 03:15 Weight Admit Weight 111 lb Weight 112 lb 14.4 oz Most Recent Monitor Data Heart Rate from ECG 89 NIBP 95/68 NIBP BP-Mean 77 Respiration from ECG 23 SpO2 100 I&O: 10/21/19 10/22/19 10/23/19 06:59 06:59 06:59 Intake Total 1280 590 Output Total 1315 1105 Balance -35 -515 Result Diagrams: 10/22/19 03:31 10/22/19 03:31 Hospitalist ROS - Review of Systems Constitutional: denies: fever, chills - Medication Medications: Active Medications Generic Name Dose Route Start Last Admin Trade Name Freq PRN Reason Stop Dose Admin Acetaminophen 650 mg 10/09/19 18:43 10/21/19 09:47 Tylenol PO 650 mg Q4H PRN Administration Headache/Fever/Mild Pain (1-3) Acetazolamide 250 mg 10/22/19 09:00 10/22/19 09:11 Diamox PO Not Given DAILY ALBERTA Albuterol/Ipratropium 3 ml 10/09/19 22:30 10/22/19 10:56 Duoneb NEB 3 ml [id number] ALBERTA Administration Alprazolam 0.25 mg 10/17/19 09:15 10/20/19 14:02 Xanax PO 0.25 mg 5XD PRN Administration Anxiety Apixaban 2.5 mg 10/10/19 21:00 10/22/19 07:31 Eliquis PO 2.5 mg BID ALBERTA Administration Bisacodyl 10 mg 10/17/19 13:53 10/17/19 17:20 Dulcolax [place] 10 mg DAILYPRN PRN Administration Constipation Diltiazem HCl 120 mg 10/19/19 09:00 10/22/19 07:31 Cardizem Cd PO 120 mg DAILY ALBERTA Administration Famotidine 20 mg 10/10/19 21:00 10/21/19 20:08 Pepcid PO 20 mg HS ALBERTA Administration Magnesium Oxide 400 mg 10/10/19 09:00 10/22/19 07:32 Magnesium Oxide PO 400 mg DAILY ALBERTA Administration Metoprolol Tartrate 12.5 mg 10/18/19 21:00 10/22/19 07:33 Lopressor PO Not Given BID ALBERTA Mometasone Furoate/Formoterol Fumar 1 puff 10/19/19 18:30 10/22/19 08:02 Dulera 200 Mcg/5 Mcg Inhaler INH 1 puff BID-RT ALBERTA Administration Potassium Chloride 40 meq 10/09/19 19:42 10/10/19 09:53 Klor-Con PER TUBE 40 meq ASDIR PRN Administration FOR SERUM K+ 2.5-3.5 Prednisone 40 mg 10/22/19 09:00 10/22/19 09:12 Prednisone PO Not Given DAILY ALBERTA Senna/Docusate Sodium 2 tab 10/09/19 18:43 10/16/19 20:46 Senokot S PO 2 tab BID PRN Administration Constipation Sodium Chloride 10 ml 10/19/19 21:00 10/22/19 07:34 Flush - Normal Saline IVF 10 ml Q12HR ALBERTA Administration Sterile Water 1 ml 10/09/19 19:29 10/15/19 05:05 Bacteriostatic Water FS 1 ml PRN PRN Administration RECONSTITUTION - Exam General Appearance: NAD, awake alert General - other findings: on nasal cannula Eye: PERRL, anicteric sclera ENT: normocephalic atraumatic, no oropharyngeal lesions Neck: no JVD Heart: RRR, no murmur, no gallops, no rubs Respiratory: CTAB, no wheezes Gastrointestinal: soft, non-tender, non-distended Extremities: no cyanosis, no clubbing, no edema Skin: normal turgor, no lesions, no rashes Hosp A/P - Plan Chest X ray 10/15: mild pulmonary edema ECHO: EF 60-65% Chest Xray 10/19: normal This is an 84 year old female who presented with hypoxia at PCP office and required intubation. SHe is currently extubated on nasal cannula Acute hypoxic respiratory failure secondary to COPD exacerbation with influenza A and mild pulm edema Acute resp acidosis from COPD exacerbation - was weaned off IV steroids, transitioned to oral prednisone 10/18, restarted IV prednisone 60 mg 10/19 due to BIPAP requirement. - she is improving and back on nasal cannula. Repeat chest X ray 10/19 is normal , discontinued levaquin, received this for five days - switch back to oral prednisone 40 mg today - continue PTOT. See if they can reassess today - wean oxygen down to 92% #Hypertension #CAD #Afib- - continue aspirin, eliquis, metoprolol, diltiazem DVT prophylaxis: eliquis
[2019-10-22] MEDS: Famotidine 20 MG TAB PO SCH (20:11)
[2019-10-23 05:07] LABS: Phosphorus 2.5 mg/dL (2.3-4.7)
[2019-10-23 05:10] LABS: Mean Corpuscular HGB CONC 32.3 g/dL (32.0-36.0); Mean Corpuscular Volume 95.9 fL (78.0-98.0); Mean Platelet Volume 7.7 fL (7.4-10.4); Platelet Count 162 thou/uL (130-400); RBC Distribution Width 11.9 % (11.5-14.5); Red Blood Cell (RBC) Count 3.89 mill/uL (4.20-5.40); White Blood Cell (WBC) Count 9.8 thou/uL (4.8-10.8)
[2019-10-23 05:17] LABS: BUN (Urea Nitrogen) 19 mg/dL (9.8-20.1); Calc. Creatinine Clearance 51 mL/min (70-130); Calcium 8.1 mg/dL (7.8-10.44); Estimated GFR-MDRD 88; Glucose 81 mg/dL (83-110); Lymphocytes 5 % (21-51); MDiff Complete? YES; Magnesium 2.1 mg/dL (1.6-2.6); Monocytes 6 % (0-10); Neutrophil 88 % (42-75); Reactive Lymphocytes 1 % (0-10)
[2019-10-23 05:30] LABS: Chloride 97 mmol/L (98-107); Potassium 3.3 mmol/L (3.5-5.1); Sodium 138 mmol/L (136-145)
[2019-10-23 05:33] LABS: Anion Gap 7 mmol/L (10-20); Carbon Dioxide 37 mmol/L (23-31)
[2019-10-23] MEDS: Mometasone/Formoterol 120 PUFF INHALER INH SCH ×2 (07:10→18:51)
[2019-10-23] MEDS: Apixaban 2.5 MG TAB PO SCH ×2 (08:31→20:32)
[2019-10-23] MEDS: predniSONE 20 MG TAB PO SCH (08:31)
[2019-10-23] MEDS: Magnesium Oxide 400 MG TAB PO SCH (08:32)
[2019-10-23] MEDS: AcetaZOLAMIDE 250 MG TAB PO SCH (08:32)
[2019-10-23] MEDS: Metoprolol Tartrate 25 MG TAB PO SCH ×2 (08:32→20:35)
[2019-10-23 08:44] VITALS: BP 111/61
--- NOTE | 2019-10-23 09:06 | PRG ---
DATE OF SERVICE: 10/23/2019 SUBJECTIVE: The patient is doing well. She wore BiPAP last night and slept 7 hours without interruption. OBJECTIVE: VITAL SIGNS: Temperature 97.1, pulse 84, blood pressure 125/74, sats 97%. HEENT: Unremarkable. NECK: No adenopathy or JVD. LUNGS: Clear. CARDIAC: S1 and S2 regular. ABDOMEN: Soft. EXTREMITIES: No edema. LABORATORY DATA: White blood cell count 9.8, hematocrit 37.3, platelet count 162. Sodium 138, potassium 3.3, chloride 97, CO2 of 37, BUN 19, creatinine 0.6, glucose 81. ASSESSMENT: 1. Chronic obstructive pulmonary disease with exacerbation, much better with noninvasive ventilation at night. 2. Metabolic alkalosis. PLAN: 1. Awaiting arrival of her home Trilogy ventilator. I think nocturnal ventilation will help her significantly with her underlying pulmonary issues. 2. Continue Diamox daily. 3. Increase activity. Job ID: [id number]
[2019-10-23 14:08] VITALS: BMI 18.7
--- NOTE | 2019-10-23 16:47 | PDOC.HOSPP ---
- Subjective Encounter Date: 10/23/19 Encounter Time: 15:00 Subjective: The patient is doing better. No cough. She walked around the hallway and did well. She wears oxygen at home prn 0.5L but hasn't used it in a while. No chest pain. No fevers. She has bed at rehab today - Objective Vital Signs & Weight: Vital Signs (12 hours) Temp Pulse Resp BP Pulse Ox 10/23/19 15:39 98.0 F 10/23/19 13:57 70 20 100 10/23/19 11:32 97.8 F 10/23/19 10:46 73 21 H 95 10/23/19 08:32 86 111/61 10/23/19 08:00 96 10/23/19 07:44 97.1 F L 10/23/19 07:10 80 24 H 96 Weight Admit Weight 111 lb Weight 112 lb 8 oz Most Recent Monitor Data Heart Rate from ECG 79 NIBP 136/96 NIBP BP-Mean 109 Respiration from ECG 25 SpO2 99 I&O: 10/22/19 10/23/19 10/24/19 06:59 06:59 06:59 Intake Total 590 260 Output Total 1105 1550 Balance -515 -1290 Result Diagrams: 10/23/19 04:26 10/23/19 04:26 Hospitalist ROS - Review of Systems Constitutional: denies: fever, chills - Medication Medications: Active Medications Generic Name Dose Route Start Last Admin Trade Name Freq PRN Reason Stop Dose Admin Acetaminophen 650 mg 10/09/19 18:43 10/21/19 09:47 Tylenol PO 650 mg Q4H PRN Administration Headache/Fever/Mild Pain (1-3) Acetazolamide 250 mg 10/22/19 09:00 10/23/19 08:32 Diamox PO 250 mg DAILY ALBERTA Administration Albuterol/Ipratropium 3 ml 10/09/19 22:30 10/23/19 13:57 Duoneb NEB 3 ml [id number] ALBERTA Administration Alprazolam 0.25 mg 10/17/19 09:15 10/20/19 14:02 Xanax PO 0.25 mg 5XD PRN Administration Anxiety Apixaban 2.5 mg 10/10/19 21:00 10/23/19 08:31 Eliquis PO 2.5 mg BID ALBERTA Administration Bisacodyl 10 mg 10/17/19 13:53 10/17/19 17:20 Dulcolax AL 10 mg DAILYPRN PRN Administration Constipation Diltiazem HCl 120 mg 10/19/19 09:00 10/23/19 08:32 Cardizem Cd PO 120 mg DAILY ALBERTA Administration Famotidine 20 mg 10/10/19 21:00 10/22/19 20:11 Pepcid PO 20 mg HS ALBERTA Administration Magnesium Oxide 400 mg 10/10/19 09:00 10/23/19 08:32 Magnesium Oxide PO 400 mg DAILY ALBERTA Administration Metoprolol Tartrate 12.5 mg 10/18/19 21:00 10/23/19 08:32 Lopressor PO 12.5 mg BID ALBERTA Administration Mometasone Furoate/Formoterol Fumar 1 puff 10/19/19 18:30 10/23/19 07:10 Dulera 200 Mcg/5 Mcg Inhaler INH 1 puff BID-RT ALBERTA Administration Potassium Chloride 40 meq 10/09/19 19:42 10/10/19 09:53 Klor-Con PER TUBE 40 meq ASDIR PRN Administration FOR SERUM K+ 2.5-3.5 Prednisone 40 mg 10/22/19 09:00 10/23/19 08:31 Prednisone PO 40 mg DAILY ALBERTA Administration Senna/Docusate Sodium 2 tab 10/09/19 18:43 10/16/19 20:46 Senokot S PO 2 tab BID PRN Administration Constipation Sodium Chloride 10 ml 10/19/19 21:00 10/23/19 08:45 Flush - Normal Saline IVF 10 ml Q12HR ALBERTA Administration Sterile Water 1 ml 10/09/19 19:29 10/15/19 05:05 Bacteriostatic Water FS 1 ml PRN PRN Administration RECONSTITUTION - Exam General Appearance: NAD, awake alert Eye: PERRL, anicteric sclera ENT: normocephalic atraumatic, no oropharyngeal lesions Neck: supple, no JVD Heart: RRR, no murmur, no gallops, no rubs Respiratory: CTAB, no wheezes, no rales, no ronchi Gastrointestinal: soft, non-tender, non-distended, normal bowel sounds Extremities: no cyanosis, no clubbing, no edema Skin: normal turgor, no lesions, no rashes Neurological: cranial nerve grossly intact, normal sensation to touch, no focal deficits, no new deficit Hosp A/P - Plan Chest X ray 10/15: mild pulmonary edema ECHO: EF 60-65% Chest Xray 10/19: normal This is an 84 year old female who presented with hypoxia at PCP office and required intubation. SHe is currently extubated on nasal cannula Acute hypoxic respiratory failure secondary to COPD exacerbation with influenza A and mild pulm edema Acute resp acidosis from COPD exacerbation - was weaned off IV steroids, transitioned to oral prednisone 10/18, restarted IV prednisone 60 mg 10/19 due to BIPAP requirement. Currently back on oral prednisone 40 mg daily - she is on 2L nasal cannula, attempt to wean off oxygen - s/p 5 days of levaquin - stable for discharge to rehab Hypokalemia - potassium 3.3, replace per protocol, recheck in am #Hypertension #CAD #Afib- - continue aspirin, eliquis, metoprolol, diltiazem DVT prophylaxis: eliquis
[2019-10-23] MEDS: Famotidine 20 MG TAB PO SCH (20:32)
[2019-10-24 03:57] LABS: Band 1 % (5-11); Hemoglobin 12.2 g/dL (12.0-16.0); Lymphocytes 3 % (21-51); MDiff Complete? YES; Mean Corpuscular HGB CONC 32.5 g/dL (32.0-36.0); Mean Corpuscular Hemoglobin 31.1 pg (27.0-31.0); Mean Corpuscular Volume 95.6 fL (78.0-98.0); Mean Platelet Volume 7.5 fL (7.4-10.4); Monocytes 5 % (0-10); Neutrophil 91 % (42-75); Platelet Count 150 thou/uL (130-400); Platelet Morphology Comment Appears Adequate; RBC Distribution Width 11.9 % (11.5-14.5); Red Blood Cell (RBC) Count 3.91 mill/uL (4.20-5.40); White Blood Cell (WBC) Count 9.3 thou/uL (4.8-10.8)
[2019-10-24 04:00] LABS: Phosphorus 2.5 mg/dL (2.3-4.7)
[2019-10-24 04:02] LABS: Anion Gap 6 mmol/L (10-20); BUN (Urea Nitrogen) 20 mg/dL (9.8-20.1); Calc. Creatinine Clearance 49 mL/min (70-130); Calcium 8.1 mg/dL (7.8-10.44); Carbon Dioxide 37 mmol/L (23-31); Chloride 97 mmol/L (98-107); Estimated GFR-MDRD 85; Glucose 97 mg/dL (83-110); Magnesium 2.1 mg/dL (1.6-2.6); Potassium 3.6 mmol/L (3.5-5.1); Sodium 136 mmol/L (136-145)
[2019-10-24] MEDS: Mometasone/Formoterol 120 PUFF INHALER INH SCH (06:38)
--- NOTE | 2019-10-24 08:46 | PRG ---
DATE OF SERVICE: 10/24/2019 SUBJECTIVE: She is doing well. No complaints. Anticipated to go to rehab today. OBJECTIVE: VITAL SIGNS: Temperature 97.2, pulse 91, blood pressure 145/93, and O2 saturation 91%. HEENT: Unremarkable. NECK: No adenopathy or JVD. LUNGS: Clear anteriorly. CARDIAC: S1 and S2. Regular. ABDOMEN: Soft. EXTREMITIES: No edema. ASSESSMENT: 1. Chronic obstructive pulmonary disease with exacerbation. 2. Metabolic alkalosis. PLAN: She is stable for transfer over to rehab today. She needs to continue current BiPAP settings at night via the respirator over there. She will have a Trelegy ventilator set up for her when she leaves that facility. I have communicated with the gentleman, who runs the [employer] for that. Job ID: [id number]
[2019-10-24] MEDS: Magnesium Oxide 400 MG TAB PO SCH (09:39)
[2019-10-24] MEDS: predniSONE 20 MG TAB PO SCH (09:40)
[2019-10-24] MEDS: Metoprolol Tartrate 25 MG TAB PO SCH (09:40)
[2019-10-24] MEDS: Apixaban 2.5 MG TAB PO SCH (09:40)
[2019-10-24] MEDS: AcetaZOLAMIDE 250 MG TAB PO SCH (09:40)
[2019-10-24] MEDS: Bisacodyl 10 MG SUPP PR PRN (09:41)
[2019-10-24 12:24] VITALS: TEMP 97.7
--- NOTE | 2019-10-25 01:36 | PQF ---
[address] Sql Programmer Crystal Reports Winform Viewer RHODACAMILOAZULTATIANA CALLI HORNE [id number] [facility]- [id number] CLINICAL DOCUMENTATION CLARIFICATION FORM: POST DISCHARGE Addendum to original discharge summary date: ____ Late entry note date: __ DATE: 10/25/19 ATTN: Calli Horne Please exercise your independent, professional judgment in responding to the clarification form. Clinical indicators are provided on the bottom of this form for your review Can you please further clarify the diagnosis of the patient? Please check appropriate box(es): [ ] Sepsis due to: (Pna, UTI, gangrenous gall bladder, etc.) [ ] Severe sepsis with acute organ dysfunction of: (Examples: respiratory failure, encephalopathy, acute kidney failure, other) [ ] Septic Shock [ ] Localized infection without sepsis [X ] Other diagnosis Acute hypoxic respiratory failure [ ] Unable to determine In addition, please specify: Present on Admission (POA): [ ] Yes [ ] No [ ] Unable to determine For continuity of documentation, please document condition throughout progress notes and discharge summary. Thank You. CLINICAL INDICATORS - SIGNS / SYMPTOMS / LABS ED Provider pg.1- altered mental status ED Provider og.4- Sepsis, influenza, respiratory failure H and P pg.2- Sepsis most likely secondary to her influenza , possible superimposed pneumonia OP report 10/11- Persistent hypotension 2/2 Afib with RVR and shock H and P pg.2- VS T 97.2, JAYLYN 158/96, Pulse 117, Respi 16 RISK FACTORS Acute respiratory failure- H and P pg.2 Influenza A- H and P pg.2 84 years old- H and P pg.1 pneumonia- Hospitalist PN PG.5 COPD Exacerbation- H and P pg.2 TREATMENTS: Chest X ray 10/[address] Snowden 10/09 Intubation ED Provider IV Fluids- OCT IV Antibiotics- OCT Nasal Swab- Microbiology Blood culture- Microbiology Mechanical Ventilation- ED Provider (This form is maintained as a part of the permanent medical record) 2014 [employer]. All Rights Reserved [email or web address]
--- NOTE | 2019-10-25 13:39 | EKG ---
Test Reason : Blood Pressure : / mmHG Vent. Rate : 085 BPM Atrial Rate : 047 BPM P-R Int : 000 ms QRS Dur : 088 ms QT Int : 316 ms P-R-T Axes : 000 085 023 degrees QTc Int : 376 ms Demand pacemaker; interpretation is based on intrinsic rhythm Atrial fibrillation with premature ventricular or aberrantly conducted complexes Abnormal ECG Confirmed by RAJIV MERIDA ([id number]), fashion editor CEM PAUL ([id number]) on 10/25/2019 1:39:29 PM Referred By: Confirmed By:RAJIV Benson
--- NOTE | 2019-10-25 14:32 | DIS ---
DATE OF ADMISSION: 10/09/2019 DATE OF DISCHARGE: 10/24/2019 DISCHARGE DIAGNOSES: Acute hypoxic respiratory failure secondary to chronic obstructive pulmonary disease exacerbation with influenza A and mild pulmonary edema, acute respiratory acidosis, hypokalemia. SECONDARY DISCHARGE DIAGNOSES: Hypertension, coronary artery disease, atrial fibrillation. CONSULTATIONS: Pulmonology with Dr. Devyn Snowden and Dr. Eloy Singer. PROCEDURES: Intubation, status post extubation. BRIEF HISTORY OF PRESENT ILLNESS: This is an 84-year-old female with a past medical history of atrial fibrillation, COPD on 0.5 L of oxygen p.r.n., who presented to the emergency room with shortness of breath. The patient apparently had contracted to the flu. Upon arrival to the emergency room, she was hypoxic with an oxygen saturation of 76% on 2 L. She reported increasing cough. While the patient was in the emergency room, her mental status rapidly declined and she required intubation. Her chest x-ray showed findings suggestive of COPD exacerbation with mild pulmonary edema. The patient was given IV ceftriaxone, azithromycin, and admitted for further workup. HOSPITAL COURSE: Acute hypoxic and hypercapnic respiratory failure secondary to COPD exacerbation with influenza A, mild pulmonary edema: The patient was initially intubated. She was started on IV steroids. She was extubated on 10/15. Post extubation, she was initially placed on BiPAP. She did test positive for influenza A and received Tamiflu from the to . She was transitioned to oral steroids on the and was transferred to the floor. However, the following day, the patient became lethargic and was transferred back to the ICU for hypercapnic respiratory failure. She was placed back on BiPAP and IV steroids on the . Following day, the patient was weaned down to nasal cannula and she was switched back to oral steroids. She also completed five days of IV Levaquin. Upon discharge, it was recommended that the patient get a trilogy ventilator. This will be set up after she leaves rehab. Upon discharge, she was advised to continue her current BiPAP settings of 12/5 and FiO2 of 23% at night. The patient also had some pulmonary edema and received one dose of IV Lasix, but did not require further doses. She had an echocardiogram done on the , which showed a normal EF of 60% to 65%. The patient was weaned down to 1 L nasal cannula. Further weaning can be done at rehab. The patient was discharged on a steroid taper. She was also discharged with Spiriva and ProAir inhaler p.r.n. Hypokalemia: The patient did have a potassium of 3.3 on the 5th, which resolved to 3.6 on the day of discharge. Hypertension/CAD/atrial fibrillation: The patient will continue on her aspirin, Eliquis, metoprolol, and diltiazem. Metabolic alkalosis: The patient did require some Lasix in the hospital, but due to contraction alkalosis, was switched to Diamox. She will continue Diamox on discharge. She should have a repeat BMP in a week. DISCHARGE PHYSICAL EXAMINATION: VITAL SIGNS: Temperature 97.7, heart rate 84, respiratory rate 21, and O2 saturation 92% on 1 L nasal cannula. GENERAL: The patient is alert, awake, oriented x3. She is on 1 L nasal cannula. CVS: Irregular rate and rhythm with no murmurs, rubs, or gallops. LUNGS: Diminished breath sounds bilaterally. There is no wheezing, rales, or rhonchi. ABDOMEN: Positive bowel sounds, soft, nontender, nondistended. EXTREMITIES: No edema. PERTINENT LABORATORY DATA: CBC 10/23: Unremarkable. BMP 10/23: Shows a CO2 of 37. LFTs 10/09: AST of 36, ALT 21, alkaline phosphatase 96. Troponin I: 0.016. PERTINENT IMAGING: Chest x-ray on 10/09: Shows interstitial prominence of pulmonary hyperinflation suggesting COPD. Chest x-ray on 10/12: Bilateral interstitial linear and minimal reticulonodular stable parenchymal changes bilaterally. Chest x-ray on 10/13: Increased markings in the perihilar regions, possibly representing some acute vascular congestion or some new interstitial opacity changes. Chest x-ray on 10/14: Stable chest. Chest x-ray on 10/15: Mild pulmonary edema. Chest x-ray 10/19: No acute cardiopulmonary process. Echo 10/10: EF 60% to 65%. LV size is normal. DISCHARGE CONDITION: Stable for discharge to rehab on 1 L of oxygen. ACTIVITY: As tolerated. DIET: Heart healthy diet. DISCHARGE MEDICATIONS: 1. Prednisone 40 mg p.o. daily x2 days, then 20 mg x2 days, then 10 mg x2 days. 2. Spiriva 18 mcg inhaled daily. 3. Diamox 250 mg p.o. daily. 4. Diltiazem 120 mg p.o. daily. 5. Albuterol ProAir two puffs inhaled q.4 hours p.r.n. DISCHARGE INSTRUCTIONS: The patient needs to follow up with her PCP in a week and Dr. Singer in 1 to 2 weeks. She will need to get a trilogy inhaler after leaving rehab. She was discharged with BiPAP at night 12/5. She will also be using 1 L of oxygen at rest and p.r.n. on exertion. Job ID: [id number]
== END 2019-10-24 16:42 | DRG 207 ==
LOC: ERS 15:32 → CCU 18:52 → T4-A 10-19 13:43 → CCU 10-20 08:26 → IMCU/EMU 10-21 22:31
PROVIDERS: ADMIT Internal Medicine; ATTEND Internal Medicine
PROC: 5A1955Z Respiratory Ventilation, Greater than 96 Consecutive Hours (ICD-10-PCS; principal; 2019-10-09)
PROC: 0BH17EZ Insertion of Endotracheal Airway into Trachea, Via Natural or Artificial Opening (ICD-10-PCS; 2019-10-09)
PROC: 06HM33Z Insertion of Infusion Device into Right Femoral Vein, Percutaneous Approach (ICD-10-PCS; 2019-10-11)
PROC: B54BZZA Ultrasonography of Right Lower Extremity Veins, Guidance (ICD-10-PCS; 2019-10-11)
PROC: 5A09357 Assistance with Respiratory Ventilation, Less than 24 Consecutive Hours, Continuous Positive Airway Pressure (ICD-10-PCS; 2019-10-15)
DX: J96.21 Acute and chronic respiratory failure with hypoxia (principal); J10.00 Influenza due to other identified influenza virus with unspecified type of pneumonia; J44.1 Chronic obstructive pulmonary disease with (acute) exacerbation; E87.1 Hypo-osmolality and hyponatremia; I48.20 Chronic atrial fibrillation, unspecified; E44.1 Mild protein-calorie malnutrition; Z68.1 Body mass index [BMI] 19.9 or less, adult; E87.2 Acidosis; E87.3 Alkalosis; J81.1 Chronic pulmonary edema; R57.9 Shock, unspecified; J96.22 Acute and chronic respiratory failure with hypercapnia; I10 Essential (primary) hypertension; I25.10 Atherosclerotic heart disease of native coronary artery without angina pectoris; E87.6 Hypokalemia; K59.00 Constipation, unspecified; Z99.81 Dependence on supplemental oxygen; Z87.891 Personal history of nicotine dependence; Z88.8 Allergy status to other drugs, medicaments and biological substances; Z90.710 Acquired absence of both cervix and uterus; Z88.0 Allergy status to penicillin; Z88.5 Allergy status to narcotic agent; Z79.01 Long term (current) use of anticoagulants
CPT/HCPCS: 31500; 36415; 51702; 71045; 80048; 80053; 81003; 81015; 82330; 82803; 82805; 83605; 83735; 83880; 83930; 83935; 84100; 84300; 84484; 85007; 85025; 85027; 87040; 87086; 87804; 90471; 90670; 93005; 93306; 94002; 94003; 94640; 94660; 96361; 96365; 96367; 99292; A4353; G0009; J0456; J0696; J1120; J1160; J1940; J1956; J2060; J2370; J2704; J2920; J3010; J3490; J7050; J7512; J7611; J7620; S0028

== ENCOUNTER 2019-11-05 07:26 | Inpatient (IN) | payer MEDICARE, OTHER ==
[2019-11-05] MEDS ORDERED: Rocuronium Bromide 10 MG/ML (10ML VIAL) ONE (07:46)
[2019-11-05] MEDS ORDERED: Propofol 1,000 MG/100 ML VIAL IV ONE (08:07)
[2019-11-05 08:09] LABS: Hemoglobin 10.6 g/dL (12.0-16.0); Mean Corpuscular HGB CONC 32.1 g/dL (32.0-36.0); Mean Corpuscular Volume 96.6 fL (78.0-98.0); Mean Platelet Volume 7.8 fL (7.4-10.4); Platelet Count 184 thou/uL (130-400); RBC Distribution Width 13.4 % (11.5-14.5); Red Blood Cell (RBC) Count 3.43 mill/uL (4.20-5.40); White Blood Cell (WBC) Count 9.6 thou/uL (4.8-10.8)
[2019-11-05] MEDS ORDERED: Vancomycin 1 GM/200 ML BAG ONE (08:19)
[2019-11-05] MEDS ORDERED: Cefepime 2 GM VIAL ONE (08:19)
[2019-11-05 08:23] LABS: ALT (SGPT) 32 U/L (8-55); AST (SGOT) 34 U/L (5-34); Albumin 3.5 g/dL (3.4-4.8); Alkaline Phosphatase 80 U/L (40-110); Anion Gap 12 mmol/L (10-20); BUN (Urea Nitrogen) 23 mg/dL (9.8-20.1); Bilirubin, Total 0.6 mg/dL (0.2-1.2); Calc. Creatinine Clearance 0 mL/min (70-130); Calcium 9.4 mg/dL (7.8-10.44); Carbon Dioxide 33 mmol/L (23-31); Chloride 97 mmol/L (98-107); Estimated GFR-MDRD 79; Globulin 2.9 g/dL (2.4-3.5); Glucose 118 mg/dL (83-110); Potassium 4.9 mmol/L (3.5-5.1); Protein, Total 6.4 g/dL (6.0-8.3); Sodium 137 mmol/L (136-145)
[2019-11-05 08:42] LABS: Actual Bicarbonate (HCO3a) 31.2 mEq/L (22-28); Analyzer IN Cardio ER; Base Excess (BEa) 3.7 mEq/L (-2.0 to +3.0); Calcium, Ionized 1.17 mmol/L (1.12-1.30); Hemoglobin (Hb) 10.4 g/dL (12.0-16.0); O2 Tension (PaO2) 243.6 mmHg (> 60.0); Potassium - ABG Lab 4.36 mmol/L (3.70-5.30); pH, Arterial 7.31 (7.35-7.45)
--- NOTE | 2019-11-05 08:47 | RAD ---
PORTABLE CHEST 1 VIEW: Date: 11/05/2019 Time: 0815 hours HISTORY: Shortness of breath, respiratory failure. Comparison made with exam of 10/20/2019. FINDINGS/IMPRESSION: There has been interval placement of an endotracheal tube with tip just below the level of the clavic ular heads. A nasogastric tube can be traced into the stomach. The patient is rotated to the left. Le ft-sided pacemaker device remains in place. The heart size is stable. Diffuse infiltrates are seen bi laterally. No pneumothoraces or large effusions are identified. POS: [facility]
[2019-11-05 08:50] LABS: Band 16 % (5-11); Lymphocytes 3 % (21-51); MDiff Complete? YES; Monocytes 8 % (0-10); Neutrophil 73 % (42-75); Platelet Morphology Comment Appears Adequate; Polychromasia SLIGHT = 2-3 cells (100X) (0-2/hpf)
[2019-11-05 09:20] LABS: ALV-art Gradient 175.625 (0-20); CO2 Tension 63.9 mmHg (35.0-45.0)
[2019-11-05] MEDS ORDERED: methylPREDNISolone Sod Succ/PF 125 MG/2 ML VIAL ONE (09:47)
[2019-11-05 09:48] LABS: Bilirubin Negative (Negative); Blood, Urine 1+ (Negative); Clarity Clear (Clear); Glucose, Urine (Dipstick) Normal (Negative); Leukocyte Negative Leu/uL (Negative); Nitrite Negative (Negative); Protein, Urine (Dipstick) 30 mg/dL (Neg-Trace); RBC/HPF 21-50 HPF (0-3); Squamous Epithelial None Seen HPF (0-3); Urobilinogen Normal mg/dL (Less than 2); WBC/HPF 0-3 HPF (0-3)
[2019-11-05 09:58] LABS: Bacteria/HPF 1+ HPF (None Seen)
[2019-11-05] MEDS ORDERED: fentaNYL Citrate/PF 2,000 MCG in Sodium Chloride 0.9% 60 ML IV SCH (10:24)
[2019-11-05] MEDS ORDERED: Norepinephrine 8 MG/0.9% NS 250 ML ONE (10:53)
[2019-11-05] MEDS ORDERED: Fentanyl 100 MCG/2 ML VIAL ONE (11:16)
--- NOTE | 2019-11-05 11:54 | RAD ---
EXAM: Single view of the chest HISTORY: Respiratory distress COMPARISON: 11/05/2019 FINDINGS: Single view of the chest shows a normal sized cardiomediastinal silhouette. The NG tube an d endotracheal tube are unchanged in position. The pacemaker is unchanged in position. Increased interstitial markings are present. There is no evidence of consolidation, mass, or pleural effusion. The bones are unremarkable. IMPRESSION: Chronic interstitial lung disease without evidence of acute cardiopulmonary disease
--- NOTE | 2019-11-05 12:01 | CON ---
DATE OF CONSULTATION: 11/05/2019 TIME SPENT: 45 minutes of critical care time. REASON FOR CONSULTATION: Acute respiratory failure. HISTORY OF PRESENT ILLNESS: This is an 84-year-old female, who presented to the ER in severe respiratory distress and was intubated. She was recently in the hospital for treatment of a COPD exacerbation and was subsequently sent to rehab. She is currently on COVID-19 isolation because she had bilateral infiltrates on her x-ray. She has very low risk for COVID-19 in my opinion. PAST MEDICAL HISTORY: 1. Atrial fibrillation. 2. COPD, requiring home oxygen. 3. Hyperthyroidism. 4. History of hysterectomy. 5. History of rhinoplasty. 6. History of hemorrhoidectomy. ALLERGIES: FOSAMAX, LIPITOR, PENICILLIN, PRAVASTATIN, AND ADHESIVE TAPE. SOCIAL HISTORY: Quit smoking about 3 years ago. Does not consume alcohol. FAMILY MEDICAL HISTORY: Remarkable for vascular disease. REVIEW OF SYSTEMS: Cannot be obtained. MEDICATIONS: Prior to admission; 1. Prednisone 40 mg daily. 2. Coenzyme Q10 of 200 mg daily. 3. Spiriva one puff daily. 4. Metoprolol 12.5 mg b.i.d. 5. Potassium chloride 10 mEq daily. 6. Cardizem CD 120 mg daily. 7. Magnesium oxide two tablets daily. 8. Multivitamin one daily. 9. Pulmicort one puff b.i.d. 10. Aspirin 81 mg daily. 11. Brovana one neb twice daily. 12. Eliquis 2.5 mg b.i.d. 13. ProAir two puffs every 4 hours as needed. 14. Diamox 250 mg daily. PHYSICAL EXAMINATION: VITAL SIGNS: Temperature 96.8, pulse 94 up to 130, and blood pressure currently 86/51. GENERAL: She was awake as I was examining her. In general, she is a thin white female, who is intubated. HEENT: Bitemporal wasting present. NECK: No adenopathy or JVD. LUNGS: Coarse crackles bilaterally. No wheezing. CARDIOVASCULAR: S1 and S2 tachycardic and irregularly irregular. ABDOMEN: Soft and nontender to palpation. EXTREMITIES: No clubbing, cyanosis, or edema. LABORATORY DATA: PH of 7.31, pCO2 of 63, pO2 of 243 on SIMV rate 16, tidal volume 400, PEEP 5, pressure support 10, and FiO2 of 70%. White blood cell count 9.6, hematocrit 33.2, and platelet count 184. Sodium 137, potassium 4.9, chloride 97, CO2 of 33, BUN 23, creatinine 0.7, and glucose 118. BNP 1598. Troponin 0.103. IMAGING DATA: Chest x-ray shows diffuse bilateral infiltrates. Urinalysis showed red blood cells. ASSESSMENT: 1. Acute respiratory failure, requiring mechanical ventilation. Etiology likely high-output heart failure/congestive heart failure. 2. History of underlying chronic obstructive pulmonary disease. 3. Rule out pneumonia. PLAN: 1. I think she is rather low risk for COVID-19 given that she has been hospitalized or in rehab for the last several weeks. However, she meet CDC requirements regarding infiltrates and hypoxemia, so the test will be run. 2. Diuresis. 3. Control heart rate with diltiazem. 4. Empirically cover with antibiotics. We will follow. Job ID: [id number]
[2019-11-05] MEDS ORDERED: Ventilator Sedation Protocol 1 EACH FS SCH (12:43)
[2019-11-05] MEDS ORDERED: CCU Electrolyte Replacement 1 EACH FS SCH (12:43)
[2019-11-05] MEDS ORDERED: Furosemide 20 MG/2 ML VIAL IVP SCH (12:43)
[2019-11-05] MEDS ORDERED: Acetaminophen 650 MG Suppository PR PRN (12:49)
[2019-11-05] MEDS ORDERED: Ondansetron PF 4 MG/2 ML Vial IVP PRN (12:49)
[2019-11-05] MEDS ORDERED: Acetaminophen 325 MG TAB PO PRN (12:49)
[2019-11-05] MEDS ORDERED: Morphine 2 MG/ML SYRINGE SLOW IVP PRN (12:53)
[2019-11-05] MEDS ORDERED: Lorazepam 2 MG/ML VIAL SLOW IVP PRN (12:53)
[2019-11-05] MEDS ORDERED: Fentanyl BOLUS 250 ML IVPB PRN (12:53)
[2019-11-05] MEDS ORDERED: DISCONTINUE PREVIOUS NARCOTIC PAIN MEDICATIONS AND BENZODIAZEPINES FS SCH (12:53)
[2019-11-05] MEDS ORDERED: Propofol BOLUS 1,000 MG/100 ML VIAL IV PRN (12:53)
[2019-11-05] MEDS ORDERED: Magnesium 2 GM/50 ML 2 GM in Premix Bag 1 BAG IVPB PRN (12:54)
[2019-11-05] MEDS ORDERED: Potassium Chloride 40 MEQ in Sodium Chloride 0.9% 250 ML 250 ML IVPB PRN (12:54)
[2019-11-05] MEDS ORDERED: PHOS-NAK 1 PKT PACK PO PRN ×2 (12:54)
[2019-11-05] MEDS ORDERED: Potassium Phosphate 9 MMOL in Sodium Chloride 0.9% 100 ML IVPB PRN (12:54)
[2019-11-05] MEDS ORDERED: Potassium Phosphate 12 MMOL in Sodium Chloride 0.9% 250 ML 250 ML IV PRN (12:54)
[2019-11-05] MEDS ORDERED: Potassium Phosphate 15 MMOL in Sodium Chloride 0.9% 250 ML 250 ML IV PRN (12:54)
[2019-11-05] MEDS ORDERED: Potassium Chloride 20 MEQ TAB PO PRN (12:54)
[2019-11-05] MEDS ORDERED: Magnesium Oxide 400 MG TAB PO PRN ×2 (12:54)
[2019-11-05] MEDS ORDERED: CCU ELECTROLYTE REPLACEMENT PROTOCOL FS PRN (12:54)
[2019-11-05 14:28] LABS: Troponin I 0.087 ng/mL (< 0.028)
[2019-11-05] MEDS: Furosemide 20 MG/2 ML VIAL SLOW IVP SCH (14:47)
[2019-11-05] MEDS: Diltiazem 125 MG in Sodium Chloride 0.9% 100 ML IVPB SCH (15:25)
[2019-11-05] MEDS: methylPREDNISolone Sod Succ 40 MG VIAL IVP SCH ×2 (17:40→23:21)
--- NOTE | 2019-11-05 18:22 | HP ---
REASON FOR ADMISSION: Acute respiratory failure with hypoxia, influenza A, acute on chronic CHF exacerbation with diastolic dysfunction, severe deconditioning. HISTORY OF PRESENTING ILLNESS: The patient was sent over from rehab as her saturations were dropping down to 70%. She had difficulty breathing with tachypnea. Please note, majority of this history is obtained by talking to the patient's daughter on the phone, ER records, and prior medical records. Per daughter, the patient was doing well after she was discharged from here at the rehab. She had less strength in her upper body. In fact, there were plans to discharge the patient on Sunday to home. On Sunday, the patient started to have atrial flutter, which was rate controlled per family. She was also retaining fluid in her legs. Dr. Barraza was in touch with family all through their stay there. On arrival, the patient was obtunded and was unresponsive and had to be intubated by ER physician, Dr. Bills. She has been evaluated by Dr. Singer in the ER for Pulmonology and Critical Care. PAST MEDICAL AND SURGICAL HISTORY: The patient was hospitalized and discharged to rehab on the of this month. She was admitted on the 09 of October and had prolonged stay, nearly 16 days in the hospital. During her stay, she was intubated and was in ICU. She has history of chronic atrial fibrillation, COPD, hypertension, history of coronary artery disease, history of CHF with diastolic dysfunction, hemorrhoidectomy, rhinoplasty, hysterectomy, prior cardiac cath. CURRENT MEDICATIONS: The patient is on; 1. Diamox 250 mg daily. 2. Eliquis 2.5 mg twice daily. 3. Ellipta inhaler. 4. Budesonide nebulizer. 5. Brovana inhaler. 6. Lasix 20 mg daily. 7. Cardizem CD 120 mg daily. 8. Aspirin 81 mg daily. ALLERGIES: ALLERGIC TO ADHESIVES, ALENDRONATE, ATORVASTATIN, CODEINE SULFATE, LIDOCAINE, PENICILLIN, PRAVASTATIN. PERSONAL HISTORY: The patient quit smoking in 2017, but has smoked for nearly 50 years or so. Does not abuse alcohol or drugs. Prior to recent hospitalization, she was living with her . FAMILY HISTORY: Mother at the age of 92 due to natural causes. Father at the age of 61 and had history of coronary artery disease per prior records. CODE STATUS: I have discussed this with the patient's , Mr. Solomon Wachsmann. He does not want any CPR to be done on her at present, but would like to continue and see if she would come out of the ventilator in the next 2 to 3 days. If not, family is planning for palliative care and hospice. I have confirmed these code status findings with their daughter, Ms. Gan as well as wanted her to weigh in as well and they both confirmed the same. REVIEW OF SYSTEMS: Cannot be obtained as the patient is currently intubated. PHYSICAL EXAMINATION: GENERAL: The patient is an 84-year-old female, who is currently intubated. She is cachectic. VITAL SIGNS: Blood pressure 160/90, pulse 124 per minute, respiratory rate 30 per minute, temperature 98.3 degrees Fahrenheit, saturating 95% on room air on arrival and 96% on ventilator at present. NECK: Supple. There is no elevated JVD. HEENT: Eyes, pupils are 3 mm and sluggishly reacting to light. Oral cavity, mucous membranes are dry. The patient is orally intubated. CARDIOVASCULAR SYSTEM: S1 and S2 heard, irregular rhythm. RESPIRATORY SYSTEM: Air entry 1+ bilateral. Scattered rales plus bilateral, rhonchi plus bilateral. ABDOMEN: Soft. Bowel sounds heard. No tenderness, rigidity, or guarding. EXTREMITIES: There is 2+ peripheral edema, specifically worsened in both the feet. No ischemic ulcers or gangrene seen. Peripheral pulses are 1+ bilateral. CENTRAL NERVOUS SYSTEM: The patient is seen moving all extremities despite being on the vent and sedated. No gross focal motor signs seen. PSYCHIATRIC SYSTEM: Cannot be assessed as the patient is currently intubated. LABORATORY DATA: EKG done shows atrial fibrillation with RVR at 118 beats per minute. Chest x-ray done shows pulmonary vascular congestion, has a pacemaker in place. Respiratory virus panel PCR is positive for influenza A. White count of 9, hemoglobin and hematocrit are 10 and 33, platelet count 184, with 73% neutrophils, 16% bands. Blood gas done shows a pH of 7.31, pCO2 of 63, PO2 of 243. Serum bicarb is 33, BUN 23, creatinine 0.7, serum glucose 118. Liver enzymes within normal limits. Lactic acid 1.3. Troponin-I 0.10. BNP is 1598. Albumin is 3.5. CLINICAL IMPRESSION AND PLAN: The patient will be admitted to ICU for acute respiratory failure with hypoxia, acute on chronic congestive heart failure exacerbation with diastolic dysfunction, acute chronic obstructive pulmonary disease exacerbation as well. She has been placed on cefepime and vancomycin. She will also be on DuoNebs, Solu-Medrol 20 mg IV q.6 hourly along with Lasix 20 mg IV at 6 a.m. and 2 p.m. if her blood pressure permits, She is currently on Cardizem drip for atrial fibrillation with RVR and we will continue that. We will continue her aspirin as before. Eliquis will be held for now. Her overall prognosis is guarded due to recent intubation, extubation, deconditioning, going to rehab, and age of 84 years, with the patient weighing only 104 pounds now. She has multiple medical issues as well. We will continue to closely monitor her in ICU. Job ID: [id number]
[2019-11-05] MEDS: Arformoterol 15 MCG/2 ML NEB NEB SCH (19:11)
[2019-11-05] MEDS: Budesonide 0.5 MG/2 ML NEB NEB SCH (19:11)
[2019-11-05] MEDS: Carvedilol 3.125 MG TAB PO SCH (20:17)
[2019-11-05] MEDS: Famotidine/PF 20 mg/2ml Vial SLOW IVP SCH (20:18)
[2019-11-05] MEDS: Metoprolol Tartrate 25 MG TAB PO SCH (20:18)
[2019-11-05] MEDS: Propofol 1,000 MG/100 ML VIAL IV PRN (20:18)
[2019-11-05] MEDS: Cefepime 1 GM in Sodium Chloride 0.9% 100 ML IVPB SCH (20:18)
[2019-11-05] MEDS: Vancomycin 1 GM in Premix Bag 1 BAG IVPB SCH (20:19)
[2019-11-05] MEDS: Norepinephrine 8 MG/0.9% NS 250 ML IVPB SCH (23:20)
[2019-11-06 04:25] LABS: Anion Gap 12 mmol/L (10-20); BUN (Urea Nitrogen) 22 mg/dL (9.8-20.1); Calc. Creatinine Clearance 46 mL/min (70-130); Calcium 8.4 mg/dL (7.8-10.44); Carbon Dioxide 30 mmol/L (23-31); Chloride 101 mmol/L (98-107); Estimated GFR-MDRD 85; Glucose 156 mg/dL (83-110); Magnesium 1.9 mg/dL (1.6-2.6); Phosphorus 2.8 mg/dL (2.3-4.7); Potassium 3.9 mmol/L (3.5-5.1); Sodium 139 mmol/L (136-145)
[2019-11-06] MEDS: methylPREDNISolone Sod Succ 40 MG VIAL IVP SCH ×4 (05:20→23:21)
[2019-11-06] MEDS: Diltiazem 125 MG in Sodium Chloride 0.9% 100 ML IVPB SCH (05:20)
[2019-11-06] MEDS: Furosemide 20 MG/2 ML VIAL SLOW IVP SCH ×2 (05:20→13:19)
[2019-11-06 05:21] LABS: #Lymphocytes 0.2 thou/uL (1.20-3.40); #Monocytes 0.5 thou/uL (0.11-0.59); #Neutrophils 5.8 thou/uL (1.40-6.50); %Eosinophils 0.1 % (0.0-10.0); %Lymphocytes 2.7 % (21.0-51.0); %Monocytes 8.2 % (0.0-10.0); Mean Platelet Volume 7.5 fL (7.4-10.4); RBC Distribution Width 13.4 % (11.5-14.5); White Blood Cell (WBC) Count 6.5 thou/uL (4.8-10.8)
[2019-11-06] MEDS ORDERED: Mometasone 100 MCG HFA INHALER INH SCH (06:30)
--- NOTE | 2019-11-06 07:46 | RAD ---
EXAM: Single view of the chest HISTORY: Pneumonia. Intubated patient with respiratory failure. COMPARISON: 11/05/2019 FINDINGS: Single view of the chest shows a normal sized cardiomediastinal silhouette. Increased inte rstitial markings are present. There may be superimposed diffuse airspace opacities in the lungs. The endotracheal tube and NG tube are unchanged in position. The pacemaker is unchanged in position. Degenerative changes are seen in the spine. IMPRESSION: Stable exam
[2019-11-06] MEDS: Arformoterol 15 MCG/2 ML NEB NEB SCH ×2 (07:47→18:38)
[2019-11-06 08:02] LABS: Actual Bicarbonate (HCO3a) 28.7 mEq/L (22-28); Base Excess (BEa) 6.6 mEq/L (-2.0 to +3.0); CO2 Tension 31.6 mmHg (35.0-45.0); Calcium, Ionized 1.08 mmol/L (1.12-1.30); Carboxyhemoglobin (COHb) 0.9 gm% (0.0-3.0); Hemoglobin (Hb) 9.3 g/dL (12.0-16.0); O2 Tension (PaO2) 85.3 mmHg (> 60.0); Potassium - ABG Lab 3.09 mmol/L (3.70-5.30)
[2019-11-06 08:03] LABS: Puncture Site RRA; pH, Arterial 7.58 (7.35-7.45)
[2019-11-06] MEDS: Budesonide 0.5 MG/2 ML NEB NEB SCH ×2 (08:07→18:39)
[2019-11-06] MEDS: Famotidine/PF 20 mg/2ml Vial SLOW IVP SCH ×2 (08:15→20:14)
[2019-11-06] MEDS: Cefepime 1 GM in Sodium Chloride 0.9% 100 ML IVPB SCH ×2 (08:16→20:14)
[2019-11-06] MEDS: Aspirin 81 mg Enteric Coated Tablet PO SCH (08:24)
[2019-11-06] MEDS: Vancomycin 1 GM in Premix Bag 1 BAG IVPB SCH ×2 (08:24→20:17)
[2019-11-06] MEDS: Enoxaparin Sodium 40 MG/0.4 ML SYRINGE SC SCH (08:25)
[2019-11-06] MEDS: Metoprolol Tartrate 25 MG TAB PO SCH ×2 (10:15→20:15)
[2019-11-06] MEDS: Carvedilol 3.125 MG TAB PO SCH (10:16)
[2019-11-06 10:20] LABS: Hemoglobin 7.8 g/dL (12.0-16.0)
[2019-11-06 10:21] LABS: Mean Corpuscular Volume 93.9 fL (78.0-98.0)
[2019-11-06 10:22] LABS: Platelet Count 155 thou/uL (130-400)
--- NOTE | 2019-11-06 14:49 | PDOC.HOSPP ---
- Subjective non-verbal Subjective: Intubated, sedated - Objective Vital Signs & Weight: Vital Signs (12 hours) Temp Pulse Resp BP Pulse Ox 11/06/19 14:00 18 11/06/19 12:00 18 11/06/19 11:47 131 H 11/06/19 11:44 114 H 30 H 99 11/06/19 11:00 98.7 F 11/06/19 10:00 18 11/06/19 08:00 20 100 11/06/19 07:49 83 108/56 L 11/06/19 07:48 89 20 99 11/06/19 07:00 98.5 F 11/06/19 06:00 20 11/06/19 05:00 98.5 F 11/06/19 04:00 20 Weight Admit Weight 104 lb 0.931 oz Weight 104 lb 7.986 oz Most Recent Monitor Data Heart Rate from ECG 91 NIBP 116/69 NIBP BP-Mean 84 Respiration from ECG 18 SpO2 100 I&O: 11/05/19 11/06/19 11/07/19 06:59 06:59 06:59 Intake Total 279 Output Total 0006 540 Balance -1896 -540 Result Diagrams: 11/06/19 04:00 11/06/19 04:00 Radiology Reviewed by me: Yes Hospitalist ROS - Review of Systems ROS unobtainable: due to endotracheal tube - Medication Medications: Active Medications Generic Name Dose Route Start Last Admin Trade Name Freq PRN Reason Stop Dose Admin Albuterol/Ipratropium 3 ml 11/05/19 14:30 11/06/19 11:44 Duoneb NEB 3 ml [id number] ALBERTA Administration Arformoterol Tartrate 15 mcg 11/05/19 18:30 11/06/19 07:47 Brovana NEB 15 mcg BID-RT ALBERTA Administration Aspirin 81 mg 11/06/19 09:00 11/06/19 08:24 Ecotrin PO 81 mg DAILY ALBERTA Administration Carvedilol 3.125 mg 11/05/19 21:00 11/06/19 10:16 Coreg PO Not Given BID ALBERTA Enoxaparin Sodium 40 mg 11/06/19 09:00 11/06/19 08:25 Lovenox SC 40 mg 0900 ALBERTA Administration Famotidine 20 mg 11/05/19 21:00 11/06/19 08:15 Pepcid SLOW IVP 20 mg BID ALBERTA Administration Furosemide 20 mg 11/05/19 14:00 11/06/19 13:19 Lasix SLOW IVP 20 mg 0600,1400 ALBERTA Administration Diltiazem HCl 125 mg/ Sodium 125 mls @ 5 mls/hr 11/05/19 10:30 11/06/19 05:20 Chloride IVPB 125 mls INF ALBERTA Administration 5 MG/HR Cefepime HCl 1 gm/ Sodium 100 mls @ 200 mls/hr 11/05/19 21:00 11/06/19 08:16 Chloride IVPB 100 mls Q12HR ALBERTA Administration Vancomycin HCl 1 gm/ Device 200 mls @ 200 mls/hr 11/05/19 21:00 11/06/19 08: 24 IVPB 200 mls Q12HR ALBERTA Administration Norepinephrine Bitartrate 250 mls @ 0 mls/hr 11/05/19 17:31 11/05/19 23:20 Levophed IVPB 250 mls INF ALBERTA Administration Protocol Titrate Methylprednisolone Sodium Succinate 20 mg 11/05/19 18:00 11/06/19 13:19 Solu-Medrol IVP 20 mg Q6HR ALBERTA Administration Metoprolol Tartrate 12.5 mg 11/05/19 21:00 11/06/19 10:15 Lopressor PO Not Given BID ALBERTA Propofol 1,000 mg 11/05/19 12:53 11/05/19 20:18 Diprivan IV 12/05/19 12:53 1,000 mg INF PRN Administration TO ACHIEVE GOAL RASS Protocol Sodium Chloride 10 ml 11/05/19 21:00 11/06/19 08:24 Flush - Normal Saline IVF 10 ml Q12HR ALBERTA Administration - Exam General Appearance: ill appearing Eye: anicteric sclera ENT: normocephalic atraumatic, moist mucosa Neck: supple, symmetric, no lymphadenopathy Heart: no murmur, no gallops, irregular Respiratory: normal chest expansion, rhonchi, wheezes Gastrointestinal: soft, non-tender, non-distended, no guarding, no rigidity Extremities: 1+ LE edema Skin: no rashes Neurological - other findings: limited secondary to clinical condition Musculoskeletal: generalized weakness Hosp A/P (1) Acute respiratory failure with hypoxia and hypercapnia Code(s): J96.01 - ACUTE RESPIRATORY FAILURE WITH HYPOXIA; J96.02 - ACUTE RESPIRATORY FAILURE WITH HYPERCAPNIA Status: Acute (2) Atrial fibrillation with RVR Code(s): I48.91 - UNSPECIFIED ATRIAL FIBRILLATION Status: Acute (3) COPD exacerbation Code(s): J44.1 - CHRONIC OBSTRUCTIVE PULMONARY DISEASE W (ACUTE) EXACERBATION Status: Acute (4) Influenza A Code(s): J10.1 - FLU DUE TO OTH IDENT INFLUENZA VIRUS W OTH RESP MANIFEST Status: Acute (5) Malnutrition of mild degree Code(s): E44.1 - MILD PROTEIN-CALORIE MALNUTRITION Status: Acute (6) PNA (pneumonia) Code(s): J18.9 - PNEUMONIA, UNSPECIFIED ORGANISM Status: Acute Qualifiers: (7) HTN (hypertension) Code(s): I10 - ESSENTIAL (PRIMARY) HYPERTENSION Status: Chronic Qualifiers: - Plan Plan: intensive care unit pulmonology/critical-care consultation, recommendations appreciated Palliative care consultation, recommendations appreciated Vasoactive medications to maintain MAP >65 ventilator weaning when able rate control agents for atrial fibrillation, wean as able consider cardiology consultation antibiotics, IV with broad-spectrum coverage de-escalate to culture and sensitivity as able IV steroids breathing treatments continue other home medications as able blood sugar control blood pressure control G.I. prophylaxis DVT prophylaxis disposition: prognosis guarded
--- NOTE | 2019-11-06 14:54 | PRG ---
DATE OF SERVICE: 11/06/2019 SUBJECTIVE: Nicolasa Zamora is clinically stable. She is mechanically ventilated. She is almost off pressors. OBJECTIVE: VITAL SIGNS: Blood pressure at noon is 99/47, heart rate is 104, respiratory rate is 18, oximetry is 100%. LUNGS, HEART, ABDOMEN: Unchanged. Chest radiograph, slightly improved. IMPRESSION: 1. Atrial fibrillation induced congestive heart failure. 2. Underlying severe chronic obstructive pulmonary disease. 3. Status post admission last month with respiratory failure requiring mechanical ventilation. This was felt to be secondary to influenza. Deconditioning was a huge issue after she was extubated and required BiPAP support. She decompensated over at the rehab hospital the day prior to admission with rapid atrial fibrillation. It is in my opinion very unlikely this is a COVID infection given the improvement in the radiograph of just 3 hours of mechanical ventilation yesterday. We will continue to follow. She will remain in isolation until serology is back. Job ID: [id number]
[2019-11-06 20:32] LABS: Vancomycin, Trough 23.3 ug/mL
[2019-11-06] MEDS: Propofol 1,000 MG/100 ML VIAL IV PRN (23:22)
[2019-11-07] MEDS: fentaNYL Citrate/PF 2,000 MCG in Sodium Chloride 0.9% 60 ML IV SCH (02:57)
[2019-11-07 04:30] LABS: #Lymphocytes 0.1 thou/uL (1.20-3.40); #Monocytes 0.3 thou/uL (0.11-0.59); #Neutrophils 7.2 thou/uL (1.40-6.50); %Basophils 0.3 % (0.0-1.0); %Lymphocytes 1.2 % (21.0-51.0); %Monocytes 3.8 % (0.0-10.0); %Neutrophils 94.6 % (42.0-75.0); Hemoglobin 7.9 g/dL (12.0-16.0); Mean Corpuscular HGB CONC 33.6 g/dL (32.0-36.0); Mean Corpuscular Hemoglobin 31.4 pg (27.0-31.0); Mean Corpuscular Volume 93.7 fL (78.0-98.0); Mean Platelet Volume 7.5 fL (7.4-10.4); Platelet Count 177 thou/uL (130-400); RBC Distribution Width 13.8 % (11.5-14.5); Red Blood Cell (RBC) Count 2.52 mill/uL (4.20-5.40); White Blood Cell (WBC) Count 7.6 thou/uL (4.8-10.8)
[2019-11-07 04:41] LABS: Anion Gap 10 mmol/L (10-20); BUN (Urea Nitrogen) 23 mg/dL (9.8-20.1); Calc. Creatinine Clearance 44 mL/min (70-130); Carbon Dioxide 31 mmol/L (23-31); Chloride 99 mmol/L (98-107); Estimated GFR-MDRD 82; Glucose 104 mg/dL (83-110); Magnesium 1.9 mg/dL (1.6-2.6); Sodium 137 mmol/L (136-145)
[2019-11-07 04:44] LABS: Phosphorus 3.4 mg/dL (2.3-4.7)
[2019-11-07 04:50] LABS: Potassium 2.9 mmol/L (3.5-5.1)
[2019-11-07] MEDS: Furosemide 20 MG/2 ML VIAL SLOW IVP SCH ×2 (04:56→14:27)
[2019-11-07] MEDS: methylPREDNISolone Sod Succ 40 MG VIAL IVP SCH ×3 (04:56→17:52)
[2019-11-07] MEDS: Potassium Chloride 40 MEQ in Premix Bag 1 BAG IVPB PRN ×2 (04:56→14:27)
[2019-11-07] MEDS: Arformoterol 15 MCG/2 ML NEB NEB SCH ×2 (07:44→18:19)
[2019-11-07] MEDS: Budesonide 0.5 MG/2 ML NEB NEB SCH ×2 (07:44→18:18)
[2019-11-07] MEDS ORDERED: VANCOMYCIN IVPB PRN (08:10)
[2019-11-07] MEDS: Cefepime 1 GM in Sodium Chloride 0.9% 100 ML IVPB SCH (08:32)
--- NOTE | 2019-11-07 08:33 | RAD ---
CHEST 1 VIEW: Date: 11/07/2019 INDICATION: History of pneumonia. COMPARISON: Prior exam dated 11/06/2019. FINDINGS: The interstitial and air space disease predominantly involving the right lung is largely stable appea ring. COPD change is similar appearing. Mild cardiomegaly is stable. ET tube, gastric catheter, and p acemaker appear similar appearing. No pneumothorax is evident. IMPRESSION: Stable pneumonia. POS: BH
[2019-11-07] MEDS: Aspirin 81 mg Enteric Coated Tablet PO SCH (09:28)
[2019-11-07] MEDS: Enoxaparin Sodium 40 MG/0.4 ML SYRINGE SC SCH (09:29)
[2019-11-07] MEDS: Vancomycin HCl 750 MG in Sodium Chloride 0.9% 250 ML 250 ML IVPB SCH ×2 (09:30→21:43)
[2019-11-07] MEDS: Metoprolol Tartrate 25 MG TAB PO SCH ×2 (09:30→21:44)
[2019-11-07] MEDS: Propofol 1,000 MG/100 ML VIAL IV PRN (09:52)
[2019-11-07 12:51] LABS: Potassium 3.5 mmol/L (3.5-5.1)
--- NOTE | 2019-11-07 13:55 | PDOC.HOSPP ---
- Subjective Subjective: Intubated, sedated. - Objective Vital Signs & Weight: Vital Signs (12 hours) Temp Pulse Resp BP Pulse Ox 11/07/19 12:00 98.2 F 14 11/07/19 10:39 90 18 97/49 L 99 11/07/19 10:00 18 11/07/19 08:00 18 11/07/19 07:44 59 L 11/07/19 07:39 100 11/07/19 07:00 98.1 F 11/07/19 06:00 18 11/07/19 05:00 97.9 F 11/07/19 04:00 18 11/07/19 02:24 55 L 100/59 L 11/07/19 02:00 18 Weight Admit Weight 104 lb 0.931 oz Weight 103 lb 13.404 oz Most Recent Monitor Data Heart Rate from ECG 102 NIBP 108/65 NIBP BP-Mean 79 Respiration from ECG 14 SpO2 94 I&O: 11/06/19 11/07/19 11/08/19 06:59 06:59 06:59 Intake Total 279 1401 590 Output Total 2175 1365 792 Balance -1896 36 -202 Result Diagrams: 11/07/19 03:30 11/07/19 12:20 Radiology Reviewed by me: Yes Hospitalist ROS - Review of Systems ROS unobtainable: due to endotracheal tube - Medication Medications: Active Medications Generic Name Dose Route Start Last Admin Trade Name Freq PRN Reason Stop Dose Admin Albuterol/Ipratropium 3 ml 11/05/19 14:30 11/07/19 10:39 Duoneb NEB 3 ml [id number] ALBERTA Administration Arformoterol Tartrate 15 mcg 11/05/19 18:30 11/07/19 07:44 Brovana NEB 15 mcg BID-RT ALBERTA Administration Aspirin 81 mg 11/06/19 09:00 11/07/19 09:28 Ecotrin PO 81 mg DAILY ALBERTA Administration Budesonide 0.5 mg 11/06/19 18:30 11/07/19 07:44 Pulmicort Neb Solution NEB 0.5 mg BID-RT ALBERTA Administration Enoxaparin Sodium 40 mg 11/06/19 09:00 11/07/19 09:29 Lovenox SC 40 mg 0900 ALBERTA Administration Furosemide 20 mg 11/05/19 14:00 11/07/19 04:56 Lasix SLOW IVP 20 mg 0600,1400 ALBERTA Administration Diltiazem HCl 125 mg/ Sodium 125 mls @ 5 mls/hr 11/05/19 10:30 11/06/19 05:20 Chloride IVPB 125 mls INF ALBERTA Administration 5 MG/HR Fentanyl Citrate 2,000 mcg/ 100 mls @ 0 mls/hr 11/05/19 12:53 11/07/19 02:57 Sodium Chloride IV 12/05/19 12:53 100 mls INF ALBERTA Administration Protocol Per Protocol Potassium Chloride 40 meq/ 100 mls @ 50 mls/hr 11/05/19 12:54 11/07/19 04:56 Device IVPB 100 mls ASDIR PRN Administration FOR SERUM K+ 2.5 - 3.5 Norepinephrine Bitartrate 250 mls @ 0 mls/hr 11/05/19 17:31 11/05/19 23:20 Levophed IVPB 250 mls INF ALBERTA Administration Protocol Titrate Vancomycin HCl 750 mg/ Sodium 250 mls @ 250 mls/hr 11/07/19 09:00 11/07/19 09 :30 Chloride IVPB 250 mls Q12HR ALBERTA Administration Methylprednisolone Sodium Succinate 20 mg 11/05/19 18:00 11/07/19 12:29 Solu-Medrol IVP 20 mg Q6HR ALBERTA Administration Metoprolol Tartrate 12.5 mg 11/05/19 21:00 11/07/19 09:30 Lopressor PO Not Given BID ALBERTA Propofol 1,000 mg 11/05/19 12:53 11/07/19 09:52 Diprivan IV 12/05/19 12:53 1,000 mg INF PRN Administration TO ACHIEVE GOAL RASS Protocol Sodium Chloride 10 ml 11/05/19 21:00 11/07/19 09:29 Flush - Normal Saline IVF 10 ml Q12HR ALBERTA Administration - Exam General Appearance: ill appearing Eye: PERRL ENT: normocephalic atraumatic, moist mucosa Neck: supple, symmetric, no lymphadenopathy Heart: no murmur, no gallops, no rubs Respiratory: rhonchi, wheezes Gastrointestinal: soft, non-tender, non-distended, no guarding, no rigidity Extremities: 1+ LE edema Skin: no lesions, no rashes Neurological: cranial nerve grossly intact, no focal deficits Psychiatric - other findings: limited secondary to clinical condition Hosp A/P (1) Acute respiratory failure with hypoxia and hypercapnia Code(s): J96.01 - ACUTE RESPIRATORY FAILURE WITH HYPOXIA; J96.02 - ACUTE RESPIRATORY FAILURE WITH HYPERCAPNIA Status: Acute (2) Atrial fibrillation with RVR Code(s): I48.91 - UNSPECIFIED ATRIAL FIBRILLATION Status: Acute (3) COPD exacerbation Code(s): J44.1 - CHRONIC OBSTRUCTIVE PULMONARY DISEASE W (ACUTE) EXACERBATION Status: Acute (4) Influenza A Code(s): J10.1 - FLU DUE TO OTH IDENT INFLUENZA VIRUS W OTH RESP MANIFEST Status: Acute (5) Malnutrition of mild degree Code(s): E44.1 - MILD PROTEIN-CALORIE MALNUTRITION Status: Acute (6) PNA (pneumonia) Code(s): J18.9 - PNEUMONIA, UNSPECIFIED ORGANISM Status: Acute Qualifiers: (7) HTN (hypertension) Code(s): I10 - ESSENTIAL (PRIMARY) HYPERTENSION Status: Chronic Qualifiers: - Plan Plan: intensive care unit pulmonology/critical-care consultation, recommendations appreciated Palliative care consultation, recommendations appreciated Vasoactive medications as needed to maintain MAP >65 ventilator weaning when able rate control agents for atrial fibrillation, wean as able consider cardiology consultation antibiotics, IV with broad-spectrum coverage de-escalate to culture and sensitivity as able IV steroids breathing treatments Flu A positive continue other home medications as able blood sugar control blood pressure control G.I. prophylaxis DVT prophylaxis disposition: prognosis guarded
[2019-11-07] MEDS: Diltiazem 125 MG in Sodium Chloride 0.9% 100 ML IVPB SCH (16:46)
[2019-11-07] MEDS: Famotidine/PF 20 mg/2ml Vial SLOW IVP SCH (21:43)
[2019-11-07] MEDS: Norepinephrine 8 MG/0.9% NS 250 ML IVPB SCH (21:44)
[2019-11-08] MEDS: methylPREDNISolone Sod Succ 40 MG VIAL IVP SCH ×3 (00:59→17:45)
[2019-11-08] MEDS: Propofol 1,000 MG/100 ML VIAL IV PRN ×2 (03:26→17:02)
[2019-11-08 04:21] LABS: #Lymphocytes 0.1 thou/uL (1.20-3.40); #Monocytes 0.4 thou/uL (0.11-0.59); #Neutrophils 8.3 thou/uL (1.40-6.50); %Basophils 0.2 % (0.0-1.0); %Lymphocytes 1.6 % (21.0-51.0); %Monocytes 4.3 % (0.0-10.0); Hemoglobin 8.6 g/dL (12.0-16.0); Mean Corpuscular HGB CONC 33.3 g/dL (32.0-36.0); Mean Corpuscular Hemoglobin 31.2 pg (27.0-31.0); Mean Corpuscular Volume 93.5 fL (78.0-98.0); Mean Platelet Volume 7.1 fL (7.4-10.4); Platelet Count 224 thou/uL (130-400); RBC Distribution Width 13.7 % (11.5-14.5); Red Blood Cell (RBC) Count 2.76 mill/uL (4.20-5.40); White Blood Cell (WBC) Count 8.8 thou/uL (4.8-10.8)
[2019-11-08 04:39] LABS: Phosphorus 3.8 mg/dL (2.3-4.7)
[2019-11-08 04:42] LABS: Anion Gap 12 mmol/L (10-20); BUN (Urea Nitrogen) 26 mg/dL (9.8-20.1); Calc. Creatinine Clearance 41 mL/min (70-130); Calcium 8.3 mg/dL (7.8-10.44); Carbon Dioxide 30 mmol/L (23-31); Chloride 101 mmol/L (98-107); Estimated GFR-MDRD 74; Glucose 102 mg/dL (83-110); Magnesium 2.1 mg/dL (1.6-2.6); Potassium 3.8 mmol/L (3.5-5.1); Sodium 139 mmol/L (136-145)
[2019-11-08] MEDS: Furosemide 20 MG/2 ML VIAL SLOW IVP SCH ×2 (05:49→14:27)
[2019-11-08] MEDS: Budesonide 0.5 MG/2 ML NEB NEB SCH ×2 (07:35→19:04)
[2019-11-08] MEDS: Arformoterol 15 MCG/2 ML NEB NEB SCH ×2 (07:36→19:03)
[2019-11-08 08:09] LABS: Actual Bicarbonate (HCO3a) 30.8 mEq/L (22-28); Base Excess (BEa) 5.4 mEq/L (-2.0 to +3.0); CO2 Tension 48.4 mmHg (35.0-45.0); Calcium, Ionized 1.14 mmol/L (1.12-1.30); Carboxyhemoglobin (COHb) 0.7 gm% (0.0-3.0); Hemoglobin (Hb) 11.2 g/dL (12.0-16.0); O2 Tension (PaO2) 75.5 mmHg (> 60.0); Potassium - ABG Lab 3.68 mmol/L (3.70-5.30); pH, Arterial 7.42 (7.35-7.45)
[2019-11-08 08:11] LABS: Puncture Site RB
[2019-11-08] MEDS: Cefepime 1 GM in Sodium Chloride 0.9% 100 ML IVPB SCH (08:24)
[2019-11-08] MEDS: Aspirin 81 mg Enteric Coated Tablet PO SCH (08:25)
[2019-11-08] MEDS: Enoxaparin Sodium 40 MG/0.4 ML SYRINGE SC SCH (08:25)
[2019-11-08] MEDS: Metoprolol Tartrate 25 MG TAB PO SCH ×2 (08:26→21:02)
[2019-11-08] MEDS: Vancomycin HCl 750 MG in Sodium Chloride 0.9% 250 ML 250 ML IVPB SCH (08:35)
--- NOTE | 2019-11-08 09:14 | RAD ---
PORTABLE CHEST: HISTORY: Respiratory distress. COMPARISON: Prior day's exam. FINDINGS: Heart size is within normal limits. He endotracheal and NG tubes are in satisfactory position. Pace maker is present. Parenchymal lung changes are stable. IMPRESSION: Stable exam. POS: TPC
--- NOTE | 2019-11-08 09:49 | PRG ---
DATE OF SERVICE: 11/08/2019 TIME SPENT: 35 minutes of critical time. SUBJECTIVE: The patient remains intubated in the intensive care unit. She will wake up, follow some commands. OBJECTIVE: VITAL SIGNS: On exam, temperature 97.4, pulse 95, blood pressure 112/63. She is currently on diltiazem drip 5 mg an hour, norepinephrine drip 2 mg/hour and propofol for sedation. A 24-hour intake has been 1487 mL, output 1666. HEENT: Unremarkable. NECK: No adenopathy or JVD. CHEST: Fairly clear anteriorly. CARDIAC: S1 and S2. Tachycardic, irregular. ABDOMEN: Soft, nontender. EXTREMITIES: Severe muscle wasting. LABORATORY DATA: The pH of 7.42, pCO2 of 48, pO2 of 75 on SIMV rate 14, tidal volume 400, PEEP 5, pressure support 14, and FiO2 of 35%. White blood cell count 8.8, hematocrit 25.8, and platelet count 224. Sodium 139, potassium 3.8, chloride 101, CO2 of 30, BUN 26, creatinine 0.7, glucose 102. ASSESSMENT: 1. Acute hypoxic respiratory failure, requiring mechanical ventilation. 2. Atrial fibrillation induced by congestive heart failure. 3. Severe underlying chronic obstructive pulmonary disease. PLAN: 1. Awaiting the rule out COVID test to come back. Once that has been ruled out, we can stop the isolation. 2. I have decreased her respiratory rate. 3. Initiate enteral tube feeds. 4. Can reduce the steroid dose. Job ID: [id number]
[2019-11-08] MEDS: fentaNYL Citrate/PF 2,000 MCG in Sodium Chloride 0.9% 60 ML IV SCH (11:18)
--- NOTE | 2019-11-08 14:45 | PDOC.EVN ---
Event Note - Event Note Event Note: Following peripherally to avoid waste of PPE in this time of shortage. Remains ventilated. Will assume care when/ if stabilized out of the unit. Prognosis guarded. Non billable note only today.
[2019-11-08 20:41] LABS: Vancomycin, Trough 28.8 ug/mL
[2019-11-08] MEDS: Famotidine/PF 20 mg/2ml Vial SLOW IVP SCH (21:02)
[2019-11-08] MEDS: Diltiazem 125 MG in Sodium Chloride 0.9% 100 ML IVPB SCH (21:02)
[2019-11-09 04:01] LABS: Band 1 % (5-11); Hemoglobin 8.6 g/dL (12.0-16.0); Hypochromia SLIGHT = 6-15 cells (100X) (0-5/hpf); Lymphocytes 2 % (21-51); MDiff Complete? YES; Mean Corpuscular HGB CONC 32.8 g/dL (32.0-36.0); Mean Corpuscular Hemoglobin 30.6 pg (27.0-31.0); Mean Corpuscular Volume 93.4 fL (78.0-98.0); Monocytes 3 % (0-10); Neutrophil 94 % (42-75); Platelet Count 236 thou/uL (130-400); Platelet Morphology Comment Appears Adequate; RBC Distribution Width 13.7 % (11.5-14.5); White Blood Cell (WBC) Count 16.4 thou/uL (4.8-10.8)
[2019-11-09 04:05] LABS: Anion Gap 10 mmol/L (10-20); BUN (Urea Nitrogen) 31 mg/dL (9.8-20.1); Calc. Creatinine Clearance 39 mL/min (70-130); Calcium 8.3 mg/dL (7.8-10.44); Carbon Dioxide 33 mmol/L (23-31); Chloride 101 mmol/L (98-107); Estimated GFR-MDRD 70; Glucose 163 mg/dL (83-110); Magnesium 2.2 mg/dL (1.6-2.6); Potassium 3.7 mmol/L (3.5-5.1); Sodium 140 mmol/L (136-145)
[2019-11-09 04:06] LABS: Phosphorus 3.8 mg/dL (2.3-4.7)
[2019-11-09] MEDS: Propofol 1,000 MG/100 ML VIAL IV PRN ×2 (06:02→23:43)
[2019-11-09] MEDS: methylPREDNISolone Sod Succ 40 MG VIAL IVP SCH ×2 (06:02→17:40)
[2019-11-09] MEDS: Furosemide 20 MG/2 ML VIAL SLOW IVP SCH (06:02)
[2019-11-09] MEDS: Budesonide 0.5 MG/2 ML NEB NEB SCH ×2 (07:16→19:21)
[2019-11-09] MEDS: Arformoterol 15 MCG/2 ML NEB NEB SCH ×2 (07:17→19:22)
[2019-11-09 07:35] LABS: Actual Bicarbonate (HCO3a) 27.4 mEq/L (22-28); Base Excess (BEa) 2.3 mEq/L (-2.0 to +3.0); Calcium, Ionized 1.17 mmol/L (1.12-1.30); Carboxyhemoglobin (COHb) 1.6 gm% (0.0-3.0); Hemoglobin (Hb) 9.3 g/dL (12.0-16.0); Potassium - ABG Lab 3.56 mmol/L (3.70-5.30)
[2019-11-09 07:39] LABS: O2 Tension (PaO2) 57.7 mmHg (> 60.0)
[2019-11-09 07:41] LABS: Puncture Site RB
[2019-11-09] MEDS: Metoprolol Tartrate 25 MG TAB PO SCH ×2 (08:58→20:26)
[2019-11-09] MEDS: Enoxaparin Sodium 40 MG/0.4 ML SYRINGE SC SCH (09:26)
[2019-11-09] MEDS: Aspirin 81 mg Enteric Coated Tablet PO SCH (09:26)
[2019-11-09] MEDS: Cefepime 1 GM in Sodium Chloride 0.9% 100 ML IVPB SCH (09:26)
--- NOTE | 2019-11-09 10:45 | RAD ---
PORTABLE CHEST: Date: 11/09/2019 HISTORY: Pneumonia. COMPARISON: 11/08/2019 exam. FINDINGS: Endotracheal and NG tubes are in satisfactory position. Heart size within normal limits. Pacemaker pr esent. Parenchymal lung changes are essentially stable as compared to the prior exam. Some of the rig ht upper lobe parenchymal changes appear slightly improved. IMPRESSION: Slight improvement to the right upper lobe parenchyma change. Otherwise essentially stable chest. POS: TPC
--- NOTE | 2019-11-09 10:53 | PRG ---
DATE OF SERVICE: 11/09/2019 35 minutes critical time. SUBJECTIVE: The patient remains intubated on mechanical ventilation. She will wake up and follow commands without difficulty. OBJECTIVE: VITAL SIGNS: Temperature 98.4, pulse 87, blood pressure 95/62, and she is currently on a diltiazem drip 5 mg an hour, norepinephrine drip 4 mcg per minute. HEENT: Unremarkable. NECK: No adenopathy or JVD. LUNGS: Distant, but clear breath sounds CARDIAC: S1, S2. Regular. ABDOMEN: Soft. EXTREMITIES: No edema. Chest x-ray shows chronic interstitial changes bilaterally. LABORATORY DATA: PH 7.40, pCO2 of 45, and pO2 of 57 on SIMV rate 14, tidal volume 400, PEEP 5, pressure support 14, and FiO2 of 35%. White blood cell count 16.4, hematocrit 26.1, and platelet count 236. Sodium 140, potassium 3.7, chloride 101, CO2 of 33, BUN 31, creatinine 0.7, glucose 163. ASSESSMENT: 1. Acute hypoxic respiratory failure, requiring mechanical ventilation. 2. Atrial fibrillation and congestive heart failure. 3. Underlying severe chronic obstructive pulmonary disease. PLAN: 1. Still waiting for the results of her COVID test. I have a low threshold suspicion this is actually COVID. 2. Decrease respiratory rate in hopes of getting her prepared for extubation soon. 3. Continue enteral tube feeds. 4. She is becoming somewhat volume depleted, so I will decrease her Lasix dose to once daily. Job ID: [id number]
--- NOTE | 2019-11-09 12:59 | PDOC.EVN ---
Event Note - Event Note Event Note: Patient remains intubated. Will continue to follow peripherally and aid as able. Avoiding direct examination to limit PPE usage, nonbillable visit. Long- term prognosis is guarded.
[2019-11-09] MEDS: Norepinephrine 8 MG/0.9% NS 250 ML IVPB SCH (13:18)
[2019-11-09] MEDS ORDERED: Vancomycin HCl 750 MG in Sodium Chloride 0.9% 250 ML 250 ML IVPB SCH (15:00)
[2019-11-09] MEDS: Diltiazem 125 MG in Sodium Chloride 0.9% 100 ML IVPB SCH (17:39)
[2019-11-09] MEDS: Famotidine/PF 20 mg/2ml Vial SLOW IVP SCH (20:25)
[2019-11-10 03:59] LABS: #Lymphocytes 0.1 thou/uL (1.20-3.40); #Monocytes 0.4 thou/uL (0.11-0.59); #Neutrophils 13.3 thou/uL (1.40-6.50); %Lymphocytes 0.6 % (21.0-51.0); %Monocytes 2.8 % (0.0-10.0); %Neutrophils 96.6 % (42.0-75.0); Hemoglobin 8.6 g/dL (12.0-16.0); Mean Corpuscular HGB CONC 32.9 g/dL (32.0-36.0); Mean Corpuscular Hemoglobin 30.8 pg (27.0-31.0); Mean Corpuscular Volume 93.5 fL (78.0-98.0); Platelet Count 214 thou/uL (130-400); RBC Distribution Width 13.8 % (11.5-14.5); Red Blood Cell (RBC) Count 2.81 mill/uL (4.20-5.40); White Blood Cell (WBC) Count 13.8 thou/uL (4.8-10.8)
[2019-11-10 04:27] LABS: Anion Gap 9 mmol/L (10-20); BUN (Urea Nitrogen) 32 mg/dL (9.8-20.1); Calc. Creatinine Clearance 46 mL/min (70-130); Calcium 8.4 mg/dL (7.8-10.44); Carbon Dioxide 36 mmol/L (23-31); Chloride 100 mmol/L (98-107); Estimated GFR-MDRD 83; Glucose 135 mg/dL (83-110); Potassium 3.7 mmol/L (3.5-5.1); Sodium 141 mmol/L (136-145)
[2019-11-10] MEDS: methylPREDNISolone Sod Succ 40 MG VIAL IVP SCH ×2 (05:27→17:05)
[2019-11-10] MEDS: Furosemide 20 MG/2 ML VIAL SLOW IVP SCH (05:27)
[2019-11-10] MEDS: Metoprolol Tartrate 25 MG TAB PO SCH ×2 (07:32→21:45)
[2019-11-10] MEDS: Budesonide 0.5 MG/2 ML NEB NEB SCH ×2 (07:59→19:04)
[2019-11-10] MEDS: Arformoterol 15 MCG/2 ML NEB NEB SCH ×2 (07:59→19:05)
--- NOTE | 2019-11-10 08:09 | RAD ---
XR Chest 1 View Portable HISTORY: Respiratory failure, pneumonia COMPARISON: Previous day FINDINGS: No significant interval change is seen. IMPRESSION: Stable exam.
[2019-11-10 08:10] LABS: Actual Bicarbonate (HCO3a) 31.4 mEq/L (22-28); Base Excess (BEa) 7.1 mEq/L (-2.0 to +3.0); CO2 Tension 43.9 mmHg (35.0-45.0); Calcium, Ionized 1.16 mmol/L (1.12-1.30); Hemoglobin (Hb) 9.4 g/dL (12.0-16.0); O2 Tension (PaO2) 77.6 mmHg (> 60.0); Potassium - ABG Lab 3.22 mmol/L (3.70-5.30); pH, Arterial 7.47 (7.35-7.45)
[2019-11-10 08:11] LABS: ALV-art Gradient 117.075 (0-20); Puncture Site RBA
[2019-11-10] MEDS: Aspirin 81 mg Enteric Coated Tablet PO SCH (08:34)
[2019-11-10] MEDS: Cefepime 1 GM in Sodium Chloride 0.9% 100 ML IVPB SCH (08:34)
[2019-11-10] MEDS: Enoxaparin Sodium 40 MG/0.4 ML SYRINGE SC SCH (08:39)
[2019-11-10] MEDS: Propofol 1,000 MG/100 ML VIAL IV PRN (09:02)
--- NOTE | 2019-11-10 10:03 | PRG ---
DATE OF SERVICE: 11/10/2019 SUBJECTIVE: Nicolasa Zamora is afebrile. OBJECTIVE: VITAL SIGNS: Heart rate is 100, blood pressure 108/62, respiratory rates in the teens to low 20s. LUNGS: Clear. HEART: Regular rhythm. S1 and S2 are normal. ABDOMEN: Soft. EXTREMITIES: Without edema. LABORATORY DATA: White count 13.8, hemoglobin 8.6, platelets 214. Electrolytes are normal. Creatinine is 0.67. IMPRESSION: 1. Congestive heart failure associated with rapid atrial fibrillation. 2. Advanced chronic obstructive pulmonary disease. 3. Recent flu. Flu swab still positive, but she is out of the contagious. She is COVID negative. We will continue to follow. Decrease ventilatory support, possible consider weaning and extubation tomorrow. Critical care time 35 min. Job ID: [id number] MTDD
--- NOTE | 2019-11-10 10:27 | PDOC.HOSPP ---
- Subjective Encounter Date: 11/10/19 Encounter Time: 12:30 Subjective: Patient COVID test came back negative. Stable on vent overnight. - Objective Vital Signs & Weight: Vital Signs (12 hours) Temp Pulse Resp Pulse Ox 11/10/19 08:00 88 12 11/10/19 07:49 100 11/10/19 07:00 97.5 F L 11/10/19 06:00 14 11/10/19 04:00 97.4 F L 14 11/10/19 02:45 91 16 99 11/10/19 02:43 94 11/10/19 02:00 13 11/10/19 00:25 102 H 11/10/19 00:00 97.6 F 14 Weight Admit Weight 104 lb 0.931 oz Weight 104 lb 11.513 oz Most Recent Monitor Data Heart Rate from ECG 107 NIBP 120/79 NIBP BP-Mean 92 Respiration from ECG 24 SpO2 100 I&O: 11/09/19 11/10/19 11/11/19 06:59 06:59 06:59 Intake Total 1673.7 1689.5 200 Output Total 1532 1360 860 Balance 141.7 329.5 -660 Result Diagrams: 11/10/19 03:47 11/10/19 03:47 Hospitalist ROS - Review of Systems ROS unobtainable: due to endotracheal tube - Medication Medications: Active Medications Generic Name Dose Route Start Last Admin Trade Name Freq PRN Reason Stop Dose Admin Albuterol/Ipratropium 3 ml 11/05/19 14:30 11/10/19 07:58 Duoneb NEB 3 ml [id number] ALBERTA Administration Arformoterol Tartrate 15 mcg 11/05/19 18:30 11/10/19 07:59 Brovana NEB 15 mcg BID-RT ALBERTA Administration Aspirin 81 mg 11/06/19 09:00 11/10/19 08:34 Ecotrin PO 81 mg DAILY ALBERTA Administration Budesonide 0.5 mg 11/06/19 18:30 11/10/19 07:59 Pulmicort Neb Solution NEB 0.5 mg BID-RT ALBERTA Administration Enoxaparin Sodium 40 mg 11/06/19 09:00 11/10/19 08:39 Lovenox SC 40 mg 0900 ALBERTA Administration Famotidine 20 mg 11/07/19 21:00 11/09/19 20:25 Pepcid SLOW IVP 20 mg 2100 ALBERTA Administration Furosemide 20 mg 11/10/19 06:00 11/10/19 05:27 Lasix SLOW IVP 20 mg 0600 ALBERTA Administration Diltiazem HCl 125 mg/ Sodium 125 mls @ 5 mls/hr 11/05/19 10:30 11/09/19 17:39 Chloride IVPB 125 mls INF ALBERTA Administration 5 MG/HR Fentanyl Citrate 2,000 mcg/ 100 mls @ 0 mls/hr 11/05/19 12:53 11/08/19 11:18 Sodium Chloride IV 12/05/19 12:53 100 mls INF ALBERTA Administration Protocol Per Protocol Potassium Chloride 40 meq/ 100 mls @ 50 mls/hr 11/05/19 12:54 11/07/19 14:27 Device IVPB 100 mls ASDIR PRN Administration FOR SERUM K+ 2.5 - 3.5 Norepinephrine Bitartrate 250 mls @ 0 mls/hr 11/05/19 17:31 11/09/19 13:18 Levophed IVPB 250 mls INF ALBERTA Administration Protocol Titrate Cefepime HCl 1 gm/ Sodium 100 mls @ 200 mls/hr 11/08/19 09:00 11/10/19 08:34 Chloride IVPB 100 mls 0900 ALBERTA Administration Methylprednisolone Sodium Succinate 20 mg 11/08/19 18:00 11/10/19 05:27 Solu-Medrol IVP 20 mg 0600,1800 ALBERTA Administration Metoprolol Tartrate 12.5 mg 11/05/19 21:00 11/10/19 07:32 Lopressor PO Not Given BID ALBERTA Propofol 1,000 mg 11/05/19 12:53 11/10/19 09:02 Diprivan IV 12/05/19 12:53 1,000 mg INF PRN Administration TO ACHIEVE GOAL RASS Protocol Sodium Chloride 10 ml 11/05/19 21:00 11/10/19 08:39 Flush - Normal Saline IVF 10 ml Q12HR ALBERTA Administration - Exam General Appearance: NAD, awake alert ENT: moist mucosa Heart: RRR, no murmur, no gallops, no rubs Respiratory: CTAB, no wheezes, no rales, no ronchi Gastrointestinal: soft, non-tender, normal bowel sounds Psychiatric - other findings: intubated Hosp A/P (1) Influenza A Code(s): J10.1 - FLU DUE TO OTH IDENT INFLUENZA VIRUS W OTH RESP MANIFEST Status: Acute Plan: out of infectious period per Dr. Snowden (2) Acute respiratory failure with hypoxia and hypercapnia Code(s): J96.01 - ACUTE RESPIRATORY FAILURE WITH HYPOXIA; J96.02 - ACUTE RESPIRATORY FAILURE WITH HYPERCAPNIA Status: Acute Plan: on ventilator (3) COPD exacerbation Code(s): J44.1 - CHRONIC OBSTRUCTIVE PULMONARY DISEASE W (ACUTE) EXACERBATION Status: Acute (4) Acute on chronic diastolic (congestive) heart failure Code(s): I50.33 - ACUTE ON CHRONIC DIASTOLIC (CONGESTIVE) HEART FAILURE Status : Acute (5) Atrial fibrillation with RVR Code(s): I48.91 - UNSPECIFIED ATRIAL FIBRILLATION Status: Acute (6) Malnutrition of mild degree Code(s): E44.1 - MILD PROTEIN-CALORIE MALNUTRITION Status: Acute (7) HTN (hypertension) Code(s): I10 - ESSENTIAL (PRIMARY) HYPERTENSION Status: Chronic Qualifiers: (8) CAD (coronary artery disease) Code(s): I25.10 - ATHSCL HEART DISEASE OF [place] CORONARY ARTERY W/O ANG PCTRS Status: Chronic - Plan Patient remains intubated COVID-19 negative, Flu A positive but likely not contagious anymore Wean vent as able per pulmonology, possibly extubate tomrrow per pulmonology note
[2019-11-10] MEDS: Diltiazem 125 MG in Sodium Chloride 0.9% 100 ML IVPB SCH (17:11)
[2019-11-10] MEDS: Famotidine/PF 20 mg/2ml Vial SLOW IVP SCH (21:44)
[2019-11-11 02:25] LABS: Vancomycin, Trough 9.4 ug/mL
[2019-11-11 03:56] LABS: #Lymphocytes 0.1 thou/uL (1.20-3.40); #Monocytes 0.6 thou/uL (0.11-0.59); #Neutrophils 11.9 thou/uL (1.40-6.50); %Eosinophils 0.1 % (0.0-10.0); %Lymphocytes 0.8 % (21.0-51.0); %Monocytes 4.7 % (0.0-10.0); %Neutrophils 94.4 % (42.0-75.0); Mean Corpuscular HGB CONC 32.3 g/dL (32.0-36.0); Mean Corpuscular Hemoglobin 30.5 pg (27.0-31.0); Mean Corpuscular Volume 94.5 fL (78.0-98.0); Mean Platelet Volume 7.3 fL (7.4-10.4); Platelet Count 205 thou/uL (130-400); RBC Distribution Width 13.9 % (11.5-14.5); Red Blood Cell (RBC) Count 2.63 mill/uL (4.20-5.40); White Blood Cell (WBC) Count 12.6 thou/uL (4.8-10.8)
[2019-11-11 04:16] LABS: Anion Gap 9 mmol/L (10-20); BUN (Urea Nitrogen) 34 mg/dL (9.8-20.1); Calc. Creatinine Clearance 51 mL/min (70-130); Calcium 8.2 mg/dL (7.8-10.44); Carbon Dioxide 36 mmol/L (23-31); Chloride 98 mmol/L (98-107); Estimated GFR-MDRD Greater than 90; Glucose 124 mg/dL (83-110); Potassium 3.4 mmol/L (3.5-5.1); Sodium 140 mmol/L (136-145)
[2019-11-11] MEDS: Furosemide 20 MG/2 ML VIAL SLOW IVP SCH (06:15)
[2019-11-11] MEDS: methylPREDNISolone Sod Succ 40 MG VIAL IVP SCH ×2 (06:15→16:54)
[2019-11-11] MEDS: Arformoterol 15 MCG/2 ML NEB NEB SCH ×2 (07:00→19:05)
[2019-11-11] MEDS: Budesonide 0.5 MG/2 ML NEB NEB SCH ×2 (07:00→19:07)
--- NOTE | 2019-11-11 07:34 | RAD ---
Exam: Chest one view HISTORY:Pneumonia. Comparison: 11/10/2019 FINDINGS: Lines and tubes: Redemonstration of endotracheal tube, nasogastric tube and left-sided transvenous pa cemaker. Stable left-sided internal jugular vascular catheter. Cardiac silhouette: Normal Aorta: Atherosclerosis of the aorta Pulmonary vessels: Normal Costophrenic angles: Bilateral pleural effusions LUNGS: Diffuse interstitial and alveolar opacities. Hyperinflation. Pneumothorax: None Osseous abnormalities: None IMPRESSION: No significant interval change. Hyperinflation with interstitial and alveolar opacities d oes persist.
[2019-11-11] MEDS: Aspirin 81 mg Enteric Coated Tablet PO SCH (08:13)
[2019-11-11] MEDS: Enoxaparin Sodium 40 MG/0.4 ML SYRINGE SC SCH (08:13)
[2019-11-11] MEDS: Cefepime 1 GM in Sodium Chloride 0.9% 100 ML IVPB SCH (08:13)
[2019-11-11 08:24] LABS: Base Excess (BEa) 11.8 mEq/L (-2.0 to +3.0); Calcium, Ionized 1.17 mmol/L (1.12-1.30); Carboxyhemoglobin (COHb) 1.7 gm% (0.0-3.0); Hemoglobin (Hb) 8.9 g/dL (12.0-16.0); O2 Tension (PaO2) 82.8 mmHg (> 60.0); Potassium - ABG Lab 3.21 mmol/L (3.70-5.30); pH, Arterial 7.51 (7.35-7.45)
[2019-11-11 08:25] LABS: Puncture Site RRA
[2019-11-11] MEDS: Metoprolol Tartrate 25 MG TAB PO SCH ×2 (08:29→21:28)
--- NOTE | 2019-11-11 10:44 | PDOC.HOSPP ---
- Subjective Encounter Date: 11/11/19 Encounter Time: 12:00 Subjective: Patient extubated this AM. Doing quite well. No SOB. Hoarse voice from the ET tube. Eating well. - Objective Vital Signs & Weight: Vital Signs (12 hours) Temp Pulse Resp BP Pulse Ox 11/11/19 10:09 98 28 H 92 L 11/11/19 08:35 96 26 H 96 11/11/19 08:00 98.4 F 22 H 92 L 11/11/19 07:01 96 11/11/19 06:00 18 11/11/19 04:00 97.8 F 23 H 11/11/19 02:29 92 104/49 L 11/11/19 02:00 16 11/11/19 00:00 97.5 F L 20 Weight Admit Weight 104 lb 0.931 oz Weight 105 lb 6.095 oz Most Recent Monitor Data Heart Rate from ECG 90 NIBP 110/66 NIBP BP-Mean 80 Respiration from ECG 20 SpO2 100 I&O: 11/10/19 11/11/19 11/12/19 06:59 06:59 06:59 Intake Total 1689.5 1499.5 274 Output Total 1360 1550 735 Balance 329.5 -50.5 -461 Result Diagrams: 11/11/19 03:15 11/11/19 03:15 Hospitalist ROS - Review of Systems Constitutional: denies: fever, chills Respiratory: denies: cough, shortness of breath Cardiovascular: denies: chest pain, palpitations Gastrointestinal: denies: nausea, vomiting, abdominal pain Genitourinary: denies: dysuria, hematuria - Medication Medications: Active Medications Generic Name Dose Route Start Last Admin Trade Name Freq PRN Reason Stop Dose Admin Albuterol/Ipratropium 3 ml 11/05/19 14:30 11/11/19 10:09 Duoneb NEB 3 ml [id number] ALBERTA Administration Arformoterol Tartrate 15 mcg 11/05/19 18:30 11/11/19 07:00 Brovana NEB 15 mcg BID-RT ALBERTA Administration Aspirin 81 mg 11/06/19 09:00 11/11/19 08:13 Ecotrin PO 81 mg DAILY ALBERTA Administration Budesonide 0.5 mg 11/06/19 18:30 11/11/19 07:00 Pulmicort Neb Solution NEB 0.5 mg BID-RT ALBERTA Administration Enoxaparin Sodium 40 mg 11/06/19 09:00 11/11/19 08:13 Lovenox SC 40 mg 0900 ALBERTA Administration Famotidine 20 mg 11/07/19 21:00 11/10/19 21:44 Pepcid SLOW IVP 20 mg 2100 ALBERTA Administration Furosemide 20 mg 11/10/19 06:00 11/11/19 06:15 Lasix SLOW IVP 20 mg 0600 ALBERTA Administration Diltiazem HCl 125 mg/ Sodium 125 mls @ 5 mls/hr 11/05/19 10:30 11/10/19 17:11 Chloride IVPB 125 mls INF ALBERTA Administration 5 MG/HR Fentanyl Citrate 2,000 mcg/ 100 mls @ 0 mls/hr 11/05/19 12:53 11/08/19 11:18 Sodium Chloride IV 12/05/19 12:53 100 mls INF ALBERTA Administration Protocol Per Protocol Potassium Chloride 40 meq/ 100 mls @ 50 mls/hr 11/05/19 12:54 11/07/19 14:27 Device IVPB 100 mls ASDIR PRN Administration FOR SERUM K+ 2.5 - 3.5 Norepinephrine Bitartrate 250 mls @ 0 mls/hr 11/05/19 17:31 11/09/19 13:18 Levophed IVPB 250 mls INF ALBERTA Administration Protocol Titrate Cefepime HCl 1 gm/ Sodium 100 mls @ 200 mls/hr 11/08/19 09:00 11/11/19 08:13 Chloride IVPB 100 mls 0900 ALBERTA Administration Dexmedetomidine HCl 200 mcg/ 50 mls @ 0 mls/hr 11/10/19 10:30 11/11/19 03:25 Sodium Chloride IVPB 50 mls INF ALBERTA Administration Per Protocol Methylprednisolone Sodium Succinate 20 mg 11/08/19 18:00 11/11/19 06:15 Solu-Medrol IVP 20 mg 0600,1800 ALBERTA Administration Metoprolol Tartrate 12.5 mg 11/05/19 21:00 11/11/19 08:29 Lopressor PO Not Given BID ALBERTA Potassium Chloride 40 meq 11/05/19 12:54 11/11/19 08:13 Klor-Con PER TUBE 40 meq ASDIR PRN Administration FOR SERUM K+ 2.5-3.5 Propofol 1,000 mg 11/05/19 12:53 11/10/19 09:02 Diprivan IV 12/05/19 12:53 1,000 mg INF PRN Administration TO ACHIEVE GOAL RASS Protocol Sodium Chloride 10 ml 11/05/19 21:00 11/11/19 08:13 Flush - Normal Saline IVF 10 ml Q12HR ALBERTA Administration - Exam General Appearance: NAD, awake alert ENT - other findings: Nasal canula oxygen 3L Heart: RRR, no murmur, no gallops, no rubs Respiratory: no tachypnea Respiratory - other findings: decent air movement bilaterally Gastrointestinal: soft, non-tender, non-distended, normal bowel sounds Psychiatric: normal affect, normal behavior, A&O x 3 Hosp A/P (1) Influenza A Code(s): J10.1 - FLU DUE TO OTH IDENT INFLUENZA VIRUS W OTH RESP MANIFEST Status: Acute (2) Acute respiratory failure with hypoxia and hypercapnia Code(s): J96.01 - ACUTE RESPIRATORY FAILURE WITH HYPOXIA; J96.02 - ACUTE RESPIRATORY FAILURE WITH HYPERCAPNIA Status: Acute (3) COPD exacerbation Code(s): J44.1 - CHRONIC OBSTRUCTIVE PULMONARY DISEASE W (ACUTE) EXACERBATION Status: Acute (4) Acute on chronic diastolic (congestive) heart failure Code(s): I50.33 - ACUTE ON CHRONIC DIASTOLIC (CONGESTIVE) HEART FAILURE Status : Acute (5) Atrial fibrillation with RVR Code(s): I48.91 - UNSPECIFIED ATRIAL FIBRILLATION Status: Acute (6) Malnutrition of mild degree Code(s): E44.1 - MILD PROTEIN-CALORIE MALNUTRITION Status: Acute (7) HTN (hypertension) Code(s): I10 - ESSENTIAL (PRIMARY) HYPERTENSION Status: Chronic Qualifiers: (8) CAD (coronary artery disease) Code(s): I25.10 - ATHSCL HEART DISEASE OF [place] CORONARY ARTERY W/O ANG PCTRS Status: Chronic - Plan Patient extubated this AM, doing quite well COVID-19 negative, Flu A positive but likely not contagious anymore Palliative care at bedside having discussions with daughter and patient
--- NOTE | 2019-11-11 12:36 | PRG ---
DATE OF SERVICE: 11/11/2019 SUBJECTIVE: Nicolasa Zamora met criteria for extubation. This morning, it has been done successfully. OBJECTIVE: VITAL SIGNS: Heart rates in the 90s, respiratory rates in the 20s, oximetry is 92, and blood pressure is 110/66. LUNGS: Remarkable for distant breath sounds. HEART: Regular rhythm. ABDOMEN: Soft. EXTREMITIES: Without edema. LABORATORY DATA: White count 12.6, hemoglobin 8.0, and platelets 205. Sodium 140, potassium 3.4, chloride 98, bicarb 36, BUN 34, and creatinine 0.59. IMPRESSION: 1. Respiratory failure secondary to congestive heart failure associated with rapid atrial fibrillation, clinically doing well. 2. Advanced chronic obstructive pulmonary disease. 3. Advanced deconditioning. She has done better postextubation than I would have expected. We will continue supportive care. CRITICAL CARE TIME: 30 minutes. Job ID: [id number]
[2019-11-11] MEDS: Diltiazem 125 MG in Sodium Chloride 0.9% 100 ML IVPB SCH (16:42)
[2019-11-11] MEDS: ALPRAZolam 0.25 MG TAB PO PRN (16:54)
[2019-11-11] MEDS: Famotidine/PF 20 mg/2ml Vial SLOW IVP SCH (21:35)
[2019-11-11] MEDS ORDERED: Furosemide 40 MG/4 ML VIAL SLOW IVP SCH (22:30)
[2019-11-11] MEDS: Morphine 4 MG/ML VIAL SLOW IVP PRN (22:34)
--- NOTE | 2019-11-11 22:46 | PRG ---
DATE OF SERVICE: 11/11/2019 Nicolasa Zamora she is on BiPAP now. Last time she was on and off BiPAP. Morphine and Xanax in combination helped, so we will try that. I talked to the daughter by phone. The daughter and the do not want and intubate it again, so the [id number] order will be placed in the chart. We will continue to aggressively try to get her through this, hopefully she will recover, but prognosis is quite guarded at this point in time. I do think it is important that we honored everyone's wishes. CRITICAL CARE TIME: 30 minutes. Job ID: [id number]
[2019-11-12 04:15] LABS: #Lymphocytes 0.1 thou/uL (1.20-3.40); #Monocytes 0.4 thou/uL (0.11-0.59); #Neutrophils 7.1 thou/uL (1.40-6.50); %Lymphocytes 1.4 % (21.0-51.0); %Monocytes 4.8 % (0.0-10.0); %Neutrophils 93.8 % (42.0-75.0); Hemoglobin 8.8 g/dL (12.0-16.0); Mean Corpuscular HGB CONC 32.1 g/dL (32.0-36.0); Mean Corpuscular Hemoglobin 30.5 pg (27.0-31.0); Mean Corpuscular Volume 94.9 fL (78.0-98.0); Mean Platelet Volume 7.3 fL (7.4-10.4); Platelet Count 213 thou/uL (130-400); RBC Distribution Width 13.8 % (11.5-14.5); White Blood Cell (WBC) Count 7.5 thou/uL (4.8-10.8)
[2019-11-12 04:34] LABS: BUN (Urea Nitrogen) 36 mg/dL (9.8-20.1); Calc. Creatinine Clearance 48 mL/min (70-130); Calcium 8.7 mg/dL (7.8-10.44); Estimated GFR-MDRD 88; Glucose 106 mg/dL (83-110)
[2019-11-12 04:48] LABS: Chloride 95 mmol/L (98-107); Potassium 3.7 mmol/L (3.5-5.1); Sodium 142 mmol/L (136-145)
[2019-11-12 04:51] LABS: Anion Gap 12 mmol/L (10-20); Carbon Dioxide 39 mmol/L (23-31)
[2019-11-12] MEDS: methylPREDNISolone Sod Succ 40 MG VIAL IVP SCH ×2 (05:25→19:50)
[2019-11-12] MEDS: Furosemide 20 MG/2 ML VIAL SLOW IVP SCH (05:25)
[2019-11-12] MEDS: ALPRAZolam 0.25 MG TAB PO PRN (05:40)
[2019-11-12] MEDS: Arformoterol 15 MCG/2 ML NEB NEB SCH ×2 (06:22→18:37)
[2019-11-12] MEDS: Budesonide 0.5 MG/2 ML NEB NEB SCH ×2 (06:24→18:37)
[2019-11-12] MEDS: Metoprolol Tartrate 25 MG TAB PO SCH ×2 (08:31→21:09)
--- NOTE | 2019-11-12 09:22 | RAD ---
SINGLE VIEW CHEST: Date: 11/12/2019 COMPARISON: 11/11/2019. HISTORY: Pneumonia. FINDINGS: Single view of the chest shows normal sized cardiomediastinal silhouette. The endotracheal tube and N G tube have been removed. The central venous catheter and pacemaker are unchanged in position. There are small bilateral pleural effusions. Hyperexpansion of lungs is likely secondary to COPD> IMPRESSION: Small bilateral pleural effusions. POS: [facility]
--- NOTE | 2019-11-12 09:23 | PDOC.HOSPP ---
- Subjective Encounter Date: 11/12/19 Encounter Time: 10:10 Subjective: Patient had to be put on Bipap overnight. Off for the past hour and doing ok. Eating breakfast. No complaints. - Objective Vital Signs & Weight: Vital Signs (12 hours) Temp Pulse Resp Pulse Ox 11/12/19 07:00 98.6 F 11/12/19 06:22 96 21 H 96 11/12/19 03:00 98.2 F 11/12/19 02:37 97 18 96 11/12/19 00:00 98 F 11/11/19 22:52 98 22 H 97 Weight Admit Weight 104 lb 0.931 oz Weight 100 lb 8.493 oz Most Recent Monitor Data Heart Rate from ECG 96 NIBP 89/50 NIBP BP-Mean 63 Respiration from ECG 20 SpO2 91 I&O: 11/11/19 11/12/19 11/13/19 06:59 06:59 06:59 Intake Total 1499.5 803 Output Total 1550 3310 350 Balance -50.5 -2507 -350 Result Diagrams: 11/12/19 03:51 11/12/19 03:51 Hospitalist ROS - Review of Systems Constitutional: denies: fever, chills Respiratory: denies: cough, shortness of breath Cardiovascular: denies: chest pain, palpitations Gastrointestinal: denies: nausea, vomiting, abdominal pain - Medication Medications: Active Medications Generic Name Dose Route Start Last Admin Trade Name Freq PRN Reason Stop Dose Admin Albuterol/Ipratropium 3 ml 11/05/19 14:30 11/12/19 06:25 Duoneb NEB 3 ml [id number] ALBERTA Administration Alprazolam 0.25 mg 11/11/19 13:09 11/12/19 05:40 Xanax PO 0.25 mg QIDPRN PRN Administration Anxiety/Agitation Arformoterol Tartrate 15 mcg 11/05/19 18:30 11/12/19 06:22 Brovana NEB 15 mcg BID-RT ALBERTA Administration Aspirin 81 mg 11/06/19 09:00 11/11/19 08:13 Ecotrin PO 81 mg DAILY ALBERTA Administration Budesonide 0.5 mg 11/06/19 18:30 11/12/19 06:24 Pulmicort Neb Solution NEB 0.5 mg BID-RT ALBERTA Administration Enoxaparin Sodium 40 mg 11/06/19 09:00 11/11/19 08:13 Lovenox SC 40 mg 0900 ALBERTA Administration Famotidine 20 mg 11/07/19 21:00 11/11/19 21:35 Pepcid SLOW IVP 20 mg 2100 ALBERTA Administration Furosemide 20 mg 11/10/19 06:00 11/12/19 05:25 Lasix SLOW IVP 20 mg 0600 ALBERTA Administration Diltiazem HCl 125 mg/ Sodium 125 mls @ 5 mls/hr 11/05/19 10:30 11/11/19 16:42 Chloride IVPB 125 mls INF ALBERTA Administration 5 MG/HR Fentanyl Citrate 2,000 mcg/ 100 mls @ 0 mls/hr 11/05/19 12:53 11/08/19 11:18 Sodium Chloride IV 12/05/19 12:53 100 mls INF ALBERTA Administration Protocol Per Protocol Potassium Chloride 40 meq/ 100 mls @ 50 mls/hr 11/05/19 12:54 11/07/19 14:27 Device IVPB 100 mls ASDIR PRN Administration FOR SERUM K+ 2.5 - 3.5 Norepinephrine Bitartrate 250 mls @ 0 mls/hr 11/05/19 17:31 11/09/19 13:18 Levophed IVPB 250 mls INF ALBERTA Administration Protocol Titrate Cefepime HCl 1 gm/ Sodium 100 mls @ 200 mls/hr 11/08/19 09:00 11/11/19 08:13 Chloride IVPB 100 mls 0900 ALBERTA Administration Dexmedetomidine HCl 200 mcg/ 50 mls @ 0 mls/hr 11/10/19 10:30 11/11/19 16:42 Sodium Chloride IVPB 50 mls INF ALBERTA Administration Per Protocol Methylprednisolone Sodium Succinate 20 mg 11/08/19 18:00 11/12/19 05:25 Solu-Medrol IVP 20 mg 0600,1800 ALBERTA Administration Metoprolol Tartrate 12.5 mg 11/05/19 21:00 11/12/19 08:31 Lopressor PO Not Given BID ALBERTA Morphine Sulfate 4 mg 11/11/19 22:18 11/11/19 22:34 Morphine SLOW IVP 4 mg Q2H PRN Administration Congestion Potassium Chloride 40 meq 11/05/19 12:54 11/11/19 08:13 Klor-Con PER TUBE 40 meq ASDIR PRN Administration FOR SERUM K+ 2.5-3.5 Propofol 1,000 mg 11/05/19 12:53 11/10/19 09:02 Diprivan IV 12/05/19 12:53 1,000 mg INF PRN Administration TO ACHIEVE GOAL RASS Protocol Sodium Chloride 10 ml 11/05/19 21:00 11/11/19 21:36 Flush - Normal Saline IVF 10 ml Q12HR ALBERTA Administration - Exam General Appearance: NAD, awake alert ENT: moist mucosa Heart: no murmur, no gallops, no rubs, irregular Heart - other findings: mild tachycardia Respiratory - other findings: off wheeze, decent air movement throughout Gastrointestinal: soft, non-tender, non-distended, normal bowel sounds Psychiatric: normal affect, normal behavior, A&O x 3 Hosp A/P (1) Influenza A Code(s): J10.1 - FLU DUE TO OTH IDENT INFLUENZA VIRUS W OTH RESP MANIFEST Status: Acute (2) Acute respiratory failure with hypoxia and hypercapnia Code(s): J96.01 - ACUTE RESPIRATORY FAILURE WITH HYPOXIA; J96.02 - ACUTE RESPIRATORY FAILURE WITH HYPERCAPNIA Status: Acute (3) COPD exacerbation Code(s): J44.1 - CHRONIC OBSTRUCTIVE PULMONARY DISEASE W (ACUTE) EXACERBATION Status: Acute (4) Acute on chronic diastolic (congestive) heart failure Code(s): I50.33 - ACUTE ON CHRONIC DIASTOLIC (CONGESTIVE) HEART FAILURE Status : Acute (5) Atrial fibrillation with RVR Code(s): I48.91 - UNSPECIFIED ATRIAL FIBRILLATION Status: Acute (6) Malnutrition of mild degree Code(s): E44.1 - MILD PROTEIN-CALORIE MALNUTRITION Status: Acute (7) HTN (hypertension) Code(s): I10 - ESSENTIAL (PRIMARY) HYPERTENSION Status: Chronic Qualifiers: (8) CAD (coronary artery disease) Code(s): I25.10 - ATHSCL HEART DISEASE OF [place] CORONARY ARTERY W/O ANG PCTRS Status: Chronic - Plan Patient extubated 11/11/2019, now with some recurrent respiratory difficulties, on Bipap prn COVID-19 negative, Flu A positive but likely not contagious anymore Dr. Snowden discussed with daughter and , patient not to be intubated again. DNAR.
[2019-11-12] MEDS: Cefepime 1 GM in Sodium Chloride 0.9% 100 ML IVPB SCH (09:37)
[2019-11-12] MEDS: Aspirin 81 mg Enteric Coated Tablet PO SCH (09:37)
[2019-11-12] MEDS: Enoxaparin Sodium 40 MG/0.4 ML SYRINGE SC SCH (09:37)
--- NOTE | 2019-11-12 14:29 | PRG ---
DATE OF SERVICE: 11/12/2019 OBJECTIVE: VITAL SIGNS: Ms. Zamora's heart rates in the 90s, respiratory rates in the 20s, oximetry is 100% on 4 L, and blood pressure 93/53. GENERAL: The Lasix and morphine made a huge difference in her work of breathing and her sense of well-being last night. LUNGS: Distant and clear. HEART: Regular rhythm. ABDOMEN: Soft. EXTREMITIES: Without edema. IMAGING DATA: Chest radiograph shows small bilateral effusions. She has hyperinflated lungs. Her pulmonary infiltrates that were present on admission for all practical purposes are gone. LABORATORY DATA: White count 7.5, hemoglobin 8.8, and platelets 213. Sodium 142, potassium 3.7, chloride 95, bicarb 39, BUN 36, and creatinine 0.64. IMPRESSION: 1. Respiratory failure secondary to atrial fibrillation-induced pulmonary edema. 2. Underlying severe chronic obstructive pulmonary disease. A chronic obstructive pulmonary disease exacerbation was not a big part of this admission. PLAN: We will continue with current care with eventual probable placement again. She is weaker, so at this time it may be more appropriate for her to go to a skilled unit. She is stable at this time. She will sleep with BiPAP tonight. Job ID: [id number]
[2019-11-12] MEDS ORDERED: Apixaban 2.5 MG TAB PO SCH (21:00)
[2019-11-12] MEDS: Famotidine 20 MG TAB PO SCH (21:09)
[2019-11-13 04:41] LABS: #Lymphocytes 0.2 thou/uL (1.20-3.40); #Monocytes 0.7 thou/uL (0.11-0.59); #Neutrophils 5.6 thou/uL (1.40-6.50); %Eosinophils 0.2 % (0.0-10.0); %Lymphocytes 3.7 % (21.0-51.0); %Neutrophils 86.1 % (42.0-75.0); Hemoglobin 8.5 g/dL (12.0-16.0); Mean Corpuscular HGB CONC 32.9 g/dL (32.0-36.0); Mean Corpuscular Hemoglobin 31.1 pg (27.0-31.0); Mean Corpuscular Volume 94.6 fL (78.0-98.0); Mean Platelet Volume 6.9 fL (7.4-10.4); Platelet Count 226 thou/uL (130-400); RBC Distribution Width 13.8 % (11.5-14.5); Red Blood Cell (RBC) Count 2.74 mill/uL (4.20-5.40); White Blood Cell (WBC) Count 6.5 thou/uL (4.8-10.8)
[2019-11-13 05:06] LABS: BUN (Urea Nitrogen) 35 mg/dL (9.8-20.1); Calc. Creatinine Clearance 48 mL/min (70-130); Calcium 8.6 mg/dL (7.8-10.44); Estimated GFR-MDRD Greater than 90; Glucose 85 mg/dL (83-110)
[2019-11-13 05:15] LABS: Anion Gap 16 mmol/L (10-20); Carbon Dioxide 35 mmol/L (23-31); Chloride 95 mmol/L (98-107); Potassium 3.4 mmol/L (3.5-5.1); Sodium 143 mmol/L (136-145)
[2019-11-13] MEDS: Furosemide 20 MG/2 ML VIAL SLOW IVP SCH (06:04)
[2019-11-13] MEDS: methylPREDNISolone Sod Succ 40 MG VIAL IVP SCH ×2 (06:04→17:39)
[2019-11-13] MEDS: Potassium Chloride 40 MEQ in Premix Bag 1 BAG IVPB PRN (06:04)
[2019-11-13] MEDS: ALPRAZolam 0.25 MG TAB PO PRN (06:10)
[2019-11-13] MEDS: Arformoterol 15 MCG/2 ML NEB NEB SCH ×2 (07:01→18:25)
[2019-11-13] MEDS: Budesonide 0.5 MG/2 ML NEB NEB SCH ×2 (07:01→18:26)
--- NOTE | 2019-11-13 08:16 | RAD ---
PORTABLE CHEST 1 VIEW: DATE: 11/13/2019. TIME: 5:28 AM. COMPARISON: Previous day. FINDINGS: A left-sided central venous catheter and left-sided pacemaker device remain in place. The heart size is normal. The aorta is tortuous. Changes of COPD are again seen with stable bilateral small pleur al effusions, right slightly larger than the left. No pneumothoraces are identified. IMPRESSION: Stable exam. POS: [facility]
--- NOTE | 2019-11-13 08:54 | PDOC.HOSPP ---
- Subjective Encounter Date: 11/13/19 Encounter Time: 10:00 Subjective: Patient doing well this AM. Sitting up in chair. No Cough/SOB. Has been getting up to walk a little beside the bed. - Objective Vital Signs & Weight: Vital Signs (12 hours) Temp Pulse Resp Pulse Ox 11/13/19 07:50 98.1 F 11/13/19 07:08 100 11/13/19 07:01 117 H 27 H 11/13/19 04:00 97.7 F 11/13/19 02:34 100 24 H 100 11/13/19 00:00 98.1 F 11/12/19 22:39 101 H 27 H 91 L Weight Admit Weight 104 lb 0.931 oz Weight 101 lb 1.6 oz Most Recent Monitor Data Heart Rate from ECG 120 NIBP 154/96 NIBP BP-Mean 115 Respiration from ECG 26 SpO2 92 I&O: 11/12/19 11/13/19 11/14/19 06:59 06:59 06:59 Intake Total 803 412.6 Output Total 3310 1455 70 Balance -2507 -1042.4 -70 Result Diagrams: 11/13/19 04:32 11/13/19 04:32 Hospitalist ROS - Review of Systems Constitutional: denies: fever, chills Respiratory: denies: cough, shortness of breath Cardiovascular: denies: chest pain Gastrointestinal: denies: nausea, vomiting, abdominal pain - Medication Medications: Active Medications Generic Name Dose Route Start Last Admin Trade Name Freq PRN Reason Stop Dose Admin Albuterol/Ipratropium 3 ml 11/05/19 14:30 11/13/19 07:01 Duoneb NEB 3 ml [id number] ALBERTA Administration Alprazolam 0.25 mg 11/11/19 13:09 11/13/19 06:10 Xanax PO 0.25 mg QIDPRN PRN Administration Anxiety/Agitation Arformoterol Tartrate 15 mcg 11/05/19 18:30 11/13/19 07:01 Brovana NEB 15 mcg BID-RT ALBERTA Administration Aspirin 81 mg 11/06/19 09:00 11/12/19 09:37 Ecotrin PO 81 mg DAILY ALBERTA Administration Budesonide 0.5 mg 11/06/19 18:30 11/13/19 07:01 Pulmicort Neb Solution NEB 0.5 mg BID-RT ALBERTA Administration Famotidine 20 mg 11/12/19 21:00 11/12/19 21:09 Pepcid PO 20 mg 2100 ALBERTA Administration Furosemide 20 mg 11/10/19 06:00 11/13/19 06:04 Lasix SLOW IVP 20 mg 0600 ALBERTA Administration Diltiazem HCl 125 mg/ Sodium 125 mls @ 5 mls/hr 11/05/19 10:30 11/11/19 16:42 Chloride IVPB 125 mls INF ALBERTA Administration 5 MG/HR Fentanyl Citrate 2,000 mcg/ 100 mls @ 0 mls/hr 11/05/19 12:53 11/08/19 11:18 Sodium Chloride IV 12/05/19 12:53 100 mls INF ALBERTA Administration Protocol Per Protocol Potassium Chloride 40 meq/ 100 mls @ 50 mls/hr 11/05/19 12:54 11/13/19 06:04 Device IVPB 100 mls ASDIR PRN Administration FOR SERUM K+ 2.5 - 3.5 Norepinephrine Bitartrate 250 mls @ 0 mls/hr 11/05/19 17:31 11/09/19 13:18 Levophed IVPB 250 mls INF ALBERTA Administration Protocol Titrate Cefepime HCl 1 gm/ Sodium 100 mls @ 200 mls/hr 11/08/19 09:00 11/12/19 09:37 Chloride IVPB 100 mls 0900 ALBERTA Administration Dexmedetomidine HCl 200 mcg/ 50 mls @ 0 mls/hr 11/10/19 10:30 11/11/19 16:42 Sodium Chloride IVPB 50 mls INF ALBERTA Administration Per Protocol Methylprednisolone Sodium Succinate 20 mg 11/08/19 18:00 11/13/19 06:04 Solu-Medrol IVP 20 mg 0600,1800 ALBERTA Administration Metoprolol Tartrate 12.5 mg 11/05/19 21:00 11/12/19 21:09 Lopressor PO Not Given BID ALBERTA Morphine Sulfate 4 mg 11/11/19 22:18 11/11/19 22:34 Morphine SLOW IVP 4 mg Q2H PRN Administration Congestion Potassium Chloride 40 meq 11/05/19 12:54 11/11/19 08:13 Klor-Con PER TUBE 40 meq ASDIR PRN Administration FOR SERUM K+ 2.5-3.5 Propofol 1,000 mg 11/05/19 12:53 11/10/19 09:02 Diprivan IV 12/05/19 12:53 1,000 mg INF PRN Administration TO ACHIEVE GOAL RASS Protocol Sodium Chloride 10 ml 11/05/19 21:00 11/12/19 21:09 Flush - Normal Saline IVF 10 ml Q12HR ALBERTA Administration - Exam General Appearance: NAD, awake alert ENT: moist mucosa Heart: no murmur, no gallops, no rubs, irregular Heart - other findings: mild tachycardia Respiratory: CTAB, no wheezes, no rales, no ronchi, no tachypnea Gastrointestinal: soft, non-tender, non-distended, normal bowel sounds Psychiatric: normal affect, normal behavior, A&O x 3 Hosp A/P (1) Influenza A Code(s): J10.1 - FLU DUE TO OTH IDENT INFLUENZA VIRUS W OTH RESP MANIFEST Status: Acute (2) Acute respiratory failure with hypoxia and hypercapnia Code(s): J96.01 - ACUTE RESPIRATORY FAILURE WITH HYPOXIA; J96.02 - ACUTE RESPIRATORY FAILURE WITH HYPERCAPNIA Status: Acute (3) COPD exacerbation Code(s): J44.1 - CHRONIC OBSTRUCTIVE PULMONARY DISEASE W (ACUTE) EXACERBATION Status: Acute (4) Acute on chronic diastolic (congestive) heart failure Code(s): I50.33 - ACUTE ON CHRONIC DIASTOLIC (CONGESTIVE) HEART FAILURE Status : Acute (5) Atrial fibrillation with RVR Code(s): I48.91 - UNSPECIFIED ATRIAL FIBRILLATION Status: Acute (6) Malnutrition of mild degree Code(s): E44.1 - MILD PROTEIN-CALORIE MALNUTRITION Status: Acute (7) HTN (hypertension) Code(s): I10 - ESSENTIAL (PRIMARY) HYPERTENSION Status: Chronic Qualifiers: (8) CAD (coronary artery disease) Code(s): I25.10 - ATHSCL HEART DISEASE OF [place] CORONARY ARTERY W/O ANG PCTRS Status: Chronic - Plan Patient extubated 11/11/2019, now with some recurrent respiratory difficulties, on Bipap prn COVID-19 negative, Flu A positive but likely not contagious anymore Increasing diltiazem. Off drip. Cardiology consulted and going to start Amiodarone. Dr. Snowden discussed with daughter and , patient not to be intubated again. DNAR.
[2019-11-13] MEDS: Metoprolol Tartrate 25 MG TAB PO SCH ×2 (08:55→20:58)
[2019-11-13] MEDS: Apixaban 2.5 MG TAB PO SCH ×2 (08:56→20:59)
[2019-11-13] MEDS: Aspirin 81 mg Enteric Coated Tablet PO SCH (08:56)
[2019-11-13] MEDS: Cefepime 1 GM in Sodium Chloride 0.9% 100 ML IVPB SCH (08:56)
[2019-11-13] MEDS ORDERED: Digoxin 0.5 MG/2 ML AMP ONE (09:24)
[2019-11-13] MEDS ORDERED: Digoxin 0.5 MG/2 ML AMP SLOW IVP SCH (10:00)
[2019-11-13] MEDS: Amiodarone 450 MG, Admixture Fee 1 EACH in Dextrose 5% in Water 250 ML IVPB SCH (10:11)
--- NOTE | 2019-11-13 15:06 | PRG ---
DATE OF SERVICE: 11/13/2019 SUBJECTIVE: Ms. Zamora did well overnight. She is sitting up in a chair, this morning was relatively asymptomatic except she slipped into rapid atrial fibrillation. Dr. Young was gracious enough to see her. She is given 0.5 mg of digoxin. I think by the time he saw her, her heart rate was back down in the 80s. OBJECTIVE: VITAL SIGNS: Blood pressure 138/76 and respiratory rate in the 20s. LUNGS: Distant and clear. HEART: Regular rhythm. ABDOMEN: Soft. EXTREMITIES: Without edema. LABORATORY DATA: White count 6.5, hemoglobin 8.5, platelets 226. Sodium 143, potassium 3.4, chloride 95, bicarb 35, BUN 35, and creatinine 0.61. IMPRESSION: 1. Respiratory failure, secondary to atrial fibrillation induced pulmonary edema. 2. Underlying severe chronic obstructive pulmonary disease. 3. Atrial fibrillation, chronic. 4. Deconditioning. We will discontinue the daily chest x-rays and blood gases. She will continue with nocturnal BiPAP. She may be a candidate for nocturnal trilogy home ventilation. We will continue on IV amiodarone for atrial fibrillation. She is on a low dose of Eliquis as a prophylaxis. I do not feel I would risk full anticoagulation with her fall risk at this point in time. Given that all of her cultures are negative, I think it is reasonable to stop the IV cefepime since she has had going on 6 days of IV cefepime. We will continue to move towards transferring. Critical care time 35 min. Job ID: [id number] MTDD
--- NOTE | 2019-11-13 17:42 | CON ---
DATE OF CONSULTATION: 11/13/2019 REASON FOR CONSULTATION: Atrial fibrillation with RVR. [employer]: Naif Ward MD HISTORY OF PRESENT ILLNESS: Ms. Zamora is a very pleasant 84-year-old white female, who comes to the hospital for shortness of breath. She came in severe respiratory distress, had to be intubated. She has COPD. Eventually, she was ruled out for COVID-19 as well. She was extubated and sent out to the floor and had to be brought back as she went into atrial fibrillation with RVR. Her heart rate was in the 140s to 160. She received one dose of digoxin and her heart rate improved to the 120s. We started her on an amiodarone drip and actually her heart rate is better now in the 80s. She is doing much better. On my evaluation, she had already been on the amiodarone drip for about 2 hours and she was sitting up on the chair, eating lunch. PAST MEDICAL HISTORY: 1. Paroxysmal atrial fibrillation. 2. COPD, requiring home O2. 3. Hyperthyroidism. PAST SURGICAL HISTORY: 1. Hysterectomy. 2. Rhinoplasty. 3. Hemorrhoidectomy. OUTPATIENT MEDICATIONS: 1. Prednisone 40 mg a day. 2. Coenzyme Q10. 3. Spiriva. 4. Metoprolol. 5. Potassium chloride 10 mEq a day. 6. Cardizem CD 120 mg a day. 7. Magnesium oxide two tablets a day. 8. Multivitamin daily. 9. Pulmicort. 10. Aspirin 81 a day. 11. Brovana. 12. Eliquis 2.5 mg b.i.d. 13. ProAir. 14. Diamox. ALLERGIES: 1. FOSAMAX. 2. LIPITOR. 3. PENICILLIN. 4. PRAVASTATIN. 5. ADHESIVE TAPE. SOCIAL HISTORY: Quit smoking 3 years ago. No alcohol or drugs. FAMILY HISTORY: No early coronary artery disease. REVIEW OF SYSTEMS: A 12-point review of systems was done and was all negative unless stated in the history of present illness. PHYSICAL EXAMINATION: VITAL SIGNS: Temperature 98.5, pulse 94, respiratory rate 26, and saturating 96 % on 2 L nasal cannula. GENERAL: Awake, alert, and oriented x3, in no distress. HEENT: Normocephalic and atraumatic. NECK: Supple. LUNGS: Have reduced breath sounds bilaterally. CARDIOVASCULAR: Irregularly irregular rhythm.. Heart rate in 80s. ABDOMEN: Soft. Positive bowel sounds. EXTREMITIES: No edema. SKIN: Warm and dry. LABORATORY DATA: Laboratory work was reviewed. White count of 6, hemoglobin 8.5, hematocrit 25, platelet count of 126. Chemistry was unremarkable. Potassium at 3.4. UA with unremarkable serology COVID-19, PCR was negative. Influenza A and B were both negative and respiratory viral panel was also negative. However, influenza A apparently was detected. ASSESSMENT: 1. Atrial fibrillation with rapid ventricular response. 2. Chronic obstructive pulmonary disease with acute exacerbation, improving. PLAN: 1. Continue rate control with current amiodarone dose. We will keep her on an IV drip today and switch her to p.o. dosing tomorrow. 2. Continue other rate limiting medications, the diltiazem and the metoprolol at current doses. 3. Eliquis low-dose for stroke prophylaxis. This is the adequate dose for her given her weight is only 101 pounds and she is 84 years old. Thank you for letting us to participate in the care of your patient. We will follow. 40 minutes of critical care time. Job ID: [id number] MTDD
[2019-11-13] MEDS: Famotidine 20 MG TAB PO SCH (20:59)
--- NOTE | 2019-11-13 23:43 | RAD ---
Radiograph abdomen one view: DATE: 11/13/2019 Time: 11:30 PM HISTORY: 84-year-old female with abdominal distention and anorexia. FINDINGS: Large amount of colonic stool. Large amount of gas in nondistended loops of small intestine and colon , all in the lower half of the abdomen and pelvis. IMPRESSION: 1. Constipation. 2. Nonspecific bowel gas pattern without overt evidence of high-grade obstruction.
[2019-11-14] MEDS ORDERED: Bisacodyl 10 MG SUPP PR PRN (00:16)
[2019-11-14] MEDS ORDERED: Simethicone Chewable 80 MG TAB PO PRN (00:16)
[2019-11-14] MEDS: Amiodarone 450 MG, Admixture Fee 1 EACH in Dextrose 5% in Water 250 ML IVPB SCH (01:00)
[2019-11-14 03:42] LABS: #Lymphocytes 0.1 thou/uL (1.20-3.40); #Monocytes 0.3 thou/uL (0.11-0.59); #Neutrophils 7.6 thou/uL (1.40-6.50); %Eosinophils 0.4 % (0.0-10.0); %Lymphocytes 1.2 % (21.0-51.0); %Monocytes 3.9 % (0.0-10.0); %Neutrophils 94.5 % (42.0-75.0); Hemoglobin 9.2 g/dL (12.0-16.0); Mean Corpuscular HGB CONC 32.7 g/dL (32.0-36.0); Mean Corpuscular Volume 94.8 fL (78.0-98.0); Platelet Count 260 thou/uL (130-400); RBC Distribution Width 13.9 % (11.5-14.5); Red Blood Cell (RBC) Count 2.96 mill/uL (4.20-5.40); White Blood Cell (WBC) Count 8.1 thou/uL (4.8-10.8)
[2019-11-14 04:05] LABS: BUN (Urea Nitrogen) 31 mg/dL (9.8-20.1); Calc. Creatinine Clearance 44 mL/min (70-130); Calcium 8.8 mg/dL (7.8-10.44); Estimated GFR-MDRD 85; Glucose 144 mg/dL (83-110)
[2019-11-14 04:14] LABS: Anion Gap 20 mmol/L (10-20); Carbon Dioxide 32 mmol/L (23-31); Chloride 94 mmol/L (98-107); Potassium 4.7 mmol/L (3.5-5.1); Sodium 141 mmol/L (136-145)
[2019-11-14] MEDS: Furosemide 20 MG/2 ML VIAL SLOW IVP SCH (06:01)
[2019-11-14] MEDS: methylPREDNISolone Sod Succ 40 MG VIAL IVP SCH ×2 (06:01→18:13)
[2019-11-14] MEDS: Budesonide 0.5 MG/2 ML NEB NEB SCH ×2 (07:32→19:02)
[2019-11-14] MEDS: Arformoterol 15 MCG/2 ML NEB NEB SCH ×2 (07:32→18:52)
[2019-11-14] MEDS: Apixaban 2.5 MG TAB PO SCH ×2 (10:10→20:59)
[2019-11-14] MEDS: Aspirin 81 mg Enteric Coated Tablet PO SCH (10:10)
[2019-11-14] MEDS: Metoprolol Tartrate 25 MG TAB PO SCH ×2 (10:11→20:59)
--- NOTE | 2019-11-14 12:14 | PDOC.HOSPP ---
- Subjective Subjective: Seen and examined. Since I have seen the patient last she is doing much better. She has been extubated, off vasoactive medications, and has been downgraded to the intermediate medical care for. Patient's only complaint is that she is having a soft and hoarse voice from the endotracheal tube. Patient feeling weak and tired. Patient tells me that she does not want to be intubated again and does not want to live on life support. Patient's categorization status has been updated. Patient atrial fibrillation is now controlled on amiodarone drip per cardiology. Time was given for questions, all answered in detail. - Objective Vital Signs & Weight: Vital Signs (12 hours) Temp Pulse Resp Pulse Ox 11/14/19 11:19 98.5 F 11/14/19 10:54 97 25 H 98 11/14/19 08:00 94 L 11/14/19 07:48 97.6 F 11/14/19 07:33 98 11/14/19 07:30 89 29 H 98 11/14/19 03:25 97.5 F L 11/14/19 02:09 72 26 H 93 L Weight Admit Weight 104 lb 0.931 oz Weight 103 lb 1.6 oz Most Recent Monitor Data Heart Rate from ECG 90 NIBP 129/81 NIBP BP-Mean 97 Respiration from ECG 29 SpO2 100 I&O: 11/13/19 11/14/19 11/15/19 06:59 06:59 06:59 Intake Total 412.6 717.2 Output Total 1455 1300 Balance -1042.4 -582.8 Result Diagrams: 11/14/19 03:24 11/14/19 03:24 Radiology Reviewed by me: Yes Hospitalist ROS - Review of Systems All other systems reviewed; all pertinent +/- noted in HPI/Subj - Medication Medications: Active Medications Generic Name Dose Route Start Last Admin Trade Name Freq PRN Reason Stop Dose Admin Albuterol/Ipratropium 3 ml 11/05/19 14:30 11/14/19 10:54 Duoneb NEB 3 ml [id number] ALBERTA Administration Alprazolam 0.25 mg 11/11/19 13:09 11/13/19 06:10 Xanax PO 0.25 mg QIDPRN PRN Administration Anxiety/Agitation Apixaban 2.5 mg 11/13/19 09:00 11/14/19 10:10 Eliquis PO 2.5 mg BID ALBERTA Administration Arformoterol Tartrate 15 mcg 11/05/19 18:30 11/14/19 07:32 Brovana NEB 15 mcg BID-RT ALBERTA Administration Aspirin 81 mg 11/06/19 09:00 11/14/19 10:10 Ecotrin PO 81 mg DAILY ALBERTA Administration Bisacodyl 10 mg 11/14/19 00:16 11/14/19 01:[address] 10 mg Q8H PRN Administration Constipation Budesonide 0.5 mg 11/06/19 18:30 11/14/19 07:32 Pulmicort Neb Solution NEB 0.5 mg BID-RT ALBERTA Administration Diltiazem HCl 180 mg 11/13/19 09:00 11/14/19 10:10 Cardizem Cd PO 180 mg DAILY ALBERTA Administration Famotidine 20 mg 11/12/19 21:00 11/13/19 20:59 Pepcid PO 20 mg 2100 ALBERTA Administration Furosemide 20 mg 11/10/19 06:00 11/14/19 06:01 Lasix SLOW IVP 20 mg 0600 ALBERTA Administration Diltiazem HCl 125 mg/ Sodium 125 mls @ 5 mls/hr 11/05/19 10:30 11/11/19 16:42 Chloride IVPB 125 mls INF ALBERTA Administration 5 MG/HR Potassium Chloride 40 meq/ 100 mls @ 50 mls/hr 11/05/19 12:54 11/13/19 06:04 Device IVPB 100 mls ASDIR PRN Administration FOR SERUM K+ 2.5 - 3.5 Amiodarone HCl 450 mg/ 259 mls @ 0 mls/hr 11/13/19 09:45 11/14/19 01:00 Miscellaneous Medication 1 IVPB 259 mls each/ Dextrose/Water INF ALBERTA Administration Protocol As Directed Methylprednisolone Sodium Succinate 20 mg 11/08/19 18:00 11/14/19 06:01 Solu-Medrol IVP 20 mg 0600,1800 ALBERTA Administration Metoprolol Tartrate 12.5 mg 11/05/19 21:00 11/14/19 10:11 Lopressor PO 12.5 mg BID ALBERTA Administration Morphine Sulfate 4 mg 11/11/19 22:18 11/11/19 22:34 Morphine SLOW IVP 4 mg Q2H PRN Administration Congestion Potassium Chloride 40 meq 11/05/19 12:54 11/11/19 08:13 Klor-Con PER TUBE 40 meq ASDIR PRN Administration FOR SERUM K+ 2.5-3.5 Propofol 1,000 mg 11/05/19 12:53 11/10/19 09:02 Diprivan IV 12/05/19 12:53 1,000 mg INF PRN Administration TO ACHIEVE GOAL RASS Protocol Sodium Chloride 10 ml 11/05/19 21:00 11/14/19 10:11 Flush - Normal Saline IVF 10 ml Q12HR ALBERTA Administration Sodium Chloride 10 ml 11/05/19 12:48 11/14/19 06:01 Flush - Normal Saline IVF 10 ml PRN PRN Administration Saline Flush - Exam General Appearance: NAD, awake alert Eye: anicteric sclera ENT: normocephalic atraumatic, moist mucosa Neck: supple, symmetric, no lymphadenopathy Heart: no murmur, no gallops, no rubs, irregular Respiratory: no rales, no ronchi, normal chest expansion, wheezes (few faint) Gastrointestinal: soft, non-tender, no rigidity, voluntary guarding Extremities: 1+ LE edema Skin: no rashes Neurological: cranial nerve grossly intact, no focal deficits Musculoskeletal: generalized weakness Psychiatric: oriented to person, oriented to place Hosp A/P (1) Acute respiratory failure with hypoxia and hypercapnia Code(s): J96.01 - ACUTE RESPIRATORY FAILURE WITH HYPOXIA; J96.02 - ACUTE RESPIRATORY FAILURE WITH HYPERCAPNIA Status: Acute (2) Atrial fibrillation with RVR Code(s): I48.91 - UNSPECIFIED ATRIAL FIBRILLATION Status: Acute (3) COPD exacerbation Code(s): J44.1 - CHRONIC OBSTRUCTIVE PULMONARY DISEASE W (ACUTE) EXACERBATION Status: Acute (4) Influenza A Code(s): J10.1 - FLU DUE TO OTH IDENT INFLUENZA VIRUS W OTH RESP MANIFEST Status: Acute (5) Malnutrition of mild degree Code(s): E44.1 - MILD PROTEIN-CALORIE MALNUTRITION Status: Acute (6) PNA (pneumonia) Code(s): J18.9 - PNEUMONIA, UNSPECIFIED ORGANISM Status: Acute Qualifiers: (7) HTN (hypertension) Code(s): I10 - ESSENTIAL (PRIMARY) HYPERTENSION Status: Chronic Qualifiers: - Plan Plan: IMCU pulmonology/critical-care consultation, recommendations appreciated Palliative care consultation, recommendations appreciated Now DNR and DNI On amiodarone drip for atrial fibrillation, wean as able antibiotics, IV with broad-spectrum coverage de-escalate to culture and sensitivity as able breathing treatments Flu A positive continue other home medications as able blood sugar control blood pressure control G.I. prophylaxis DVT prophylaxis disposition: prognosis guarded.
--- NOTE | 2019-11-14 12:19 | PQF ---
TATIANA KOHLERKRISSY [id number] [facility]- B01 [id number] CLINICAL DOCUMENTATION IMPROVEMENT CLARIFICATION FORM: ICD-10 Updated PLEASE DO AN ADDENDUM TO THE PROGRESS NOTE WITH ANY DOCUMENTATION UPDATES OR ADDITIONS AND CARRY THROUGH TO DC SUMMARY. THANK YOU. DATE: 11/14/2019 ATTN: DR. Daisy GOMEZ Please exercise your independent, professional judgment in responding to the clarification form. Clinical indicators are provided on the bottom of this form for your review. Please check appropriate box(es): [ XX ] Sepsis present on admission [ ] Sepsis NOT present on admission [ ] Unable to determine Due to: Influenza [ ] Severe sepsis present on admission [ ] Severe Sepsis NOT present on admission [ ] Unable to determine with acute organ dysfunction of: ____ [ ] Septic Shock present on Admission [ ] Septic Shock NOT present on Admission [ ] Unable to determine [ ] Other diagnosis [ ] Unable to determine For continuity of documentation, please document condition throughout progress notes and discharge summary. Thank You. CLINICAL INDICATORS - SIGNS / SYMPTOMS / LABS / RESULTS AND LOCATION IN MR 11/04 ED REPORT: PRESENTS WITH RESP DISTRESS, RECENT ADMISSION TO HOSPITAL FOR FLU A, TRIAGE VITALS: PULSE 124, RESP 33, TEMP 98.3, O2 SAT 75% RA// >> 100% O2 ON MECHANICAL VENTILATOR ED PHYSICIAN FINAL DX: ARDS, AFIB W RVR, AMS, SEPTIC SHOCK, HYPOXIC RESP FAILURE 11/04 BANDS 16 11/08 WBC 16.4 11/09 WBC 13.8 11/10 WBC 12.6 11/11 PULSE 101 11/12 PULSE 117 > 123 > 108 123 11/10 RESP -11/11 RESP 11/12 RESP 11/13 RESP RISK: ADVANCED AGE ( 84), PNEUMONIA, INFLUENZA A ( JASON/PN) 11/06 TREATMENTS: MAXIPIME IV ( 11/04- ) VANCOMYCIN IV ( 11/04 - 11/07 ) THANK YOU! JANICE (This form is maintained as a part of the permanent medical record) 2014 [employer] All Rights Reserved W[employer] [email or web address] [facility] MED[facility] CENTERMarcelino
--- NOTE | 2019-11-14 14:10 | PRG ---
DATE OF SERVICE: 11/14/2019 SUBJECTIVE: Ms. Zamora did well overnight on BiPAP. She is reasonably comfortable. She is in reasonably good spirits. OBJECTIVE: VITAL SIGNS: Heart rates in the 90s, respiratory rates in the 20s, oximetry on 3 L, blood pressure 129/81. Intake and output -582. LUNGS: Clear. HEART: Irregular rhythm. Rate is controlled at this time. ABDOMEN: Soft and nontender. EXTREMITIES: Without edema. LABORATORY DATA: White count 8.1, hemoglobin 9.2, platelets 260, sodium 141, potassium 4.7, chloride 94, bicarb 32, BUN 31, creatinine 0.6. IMPRESSION: 1. Respiratory failure associated with rapid atrial fibrillation, which led to pulmonary edema. 2. Status post COVID rule out. 3. Underlying very severe chronic obstructive pulmonary disease. 4. Status post two intubations this month, the first for flu and chronic obstructive pulmonary disease, the second for atrial fibrillation and congestive heart failure. 5. Deconditioning. 6. . 7. Do not resuscitate status. We will continue to increase her activity. She is stable to move down to the care unit in my opinion. Job ID: [id number]
[2019-11-14] MEDS: Famotidine 20 MG TAB PO SCH (20:59)
[2019-11-15 04:15] LABS: #Eosinphils 0.1 thou/uL (0.0-0.7); #Lymphocytes 0.3 thou/uL (1.20-3.40); #Monocytes 0.8 thou/uL (0.11-0.59); %Eosinophils 0.4 % (0.0-10.0); %Lymphocytes 2.3 % (21.0-51.0); %Monocytes 6.2 % (0.0-10.0); %Neutrophils 91.2 % (42.0-75.0); Hemoglobin 9.7 g/dL (12.0-16.0); Mean Corpuscular HGB CONC 32.4 g/dL (32.0-36.0); Mean Corpuscular Hemoglobin 30.7 pg (27.0-31.0); Mean Corpuscular Volume 94.9 fL (78.0-98.0); Mean Platelet Volume 7.2 fL (7.4-10.4); Platelet Count 305 thou/uL (130-400); Red Blood Cell (RBC) Count 3.15 mill/uL (4.20-5.40); White Blood Cell (WBC) Count 13.2 thou/uL (4.8-10.8)
[2019-11-15 04:30] LABS: BUN (Urea Nitrogen) 31 mg/dL (9.8-20.1); Calc. Creatinine Clearance 47 mL/min (70-130); Calcium 8.9 mg/dL (7.8-10.44); Estimated GFR-MDRD 90; Glucose 96 mg/dL (83-110)
[2019-11-15 04:39] LABS: Anion Gap 15 mmol/L (10-20); Carbon Dioxide 38 mmol/L (23-31); Chloride 92 mmol/L (98-107); Sodium 141 mmol/L (136-145)
[2019-11-15] MEDS: Furosemide 20 MG/2 ML VIAL SLOW IVP SCH (05:38)
[2019-11-15] MEDS: methylPREDNISolone Sod Succ 40 MG VIAL IVP SCH (05:38)
[2019-11-15] MEDS: Aspirin 81 mg Enteric Coated Tablet PO SCH (07:52)
[2019-11-15] MEDS: Apixaban 2.5 MG TAB PO SCH ×2 (07:52→21:27)
[2019-11-15] MEDS: Metoprolol Tartrate 25 MG TAB PO SCH ×2 (07:53→21:27)
[2019-11-15] MEDS: Arformoterol 15 MCG/2 ML NEB NEB SCH ×2 (08:13→19:41)
[2019-11-15] MEDS: Budesonide 0.5 MG/2 ML NEB NEB SCH ×2 (08:13→19:41)
[2019-11-15] MEDS: ALPRAZolam 0.25 MG TAB PO PRN (11:30)
--- NOTE | 2019-11-15 11:57 | PRG ---
DATE OF SERVICE: 11/15/2019 SERVICE: Pulmonary Medicine. INTERVAL HISTORY: The patient is doing great from a Respiratory standpoint. Oxygen requirements are decreasing. She has no complaints of chest discomfort, nausea , or vomiting. Otherwise, there has been no interval change to her condition. PHYSICAL EXAMINATION: VITAL SIGNS: Afebrile, pulse 24, blood pressure 122/78, respirations 20, saturation 94% on 3 L nasal cannula. GENERAL: The patient is awake and alert, in no apparent distress. LUNGS: Decent air entry. There is a prolonged expiratory phase with crackles and rhonchi present. With forced exhalation, wheezing is elicited. HEART: Normal rate. Regular. ABDOMEN: Soft, nontender, nondistended. Bowel sounds are positive. MUSCULOSKELETAL: No cyanosis or clubbing. There is trace pitting in the bilateral lower extremities. NEUROLOGIC: Grossly nonfocal. LABORATORY DATA: WBC 13.2, hemoglobin 9.7, platelets 305,000. Basic metabolic profile is essentially unremarkable with a creatinine of 0.63, and a BUN of 31. Urinalysis is negative. Vancomycin trough 9.4. COVID was negative. Respiratory virus panel is unremarkable. Respiratory virus panel is positive for influenza A. Blood cultures x2 are negative. ASSESSMENT: 1. Acute on chronic hypoxic and hypercapnic respiratory failure. 2. Chronic obstructive pulmonary disease with acute exacerbation secondary to influenza A. 3. Atrial fibrillation with rapid ventricular rate, resulting in pulmonary edema , improving. 4. Thrush. DISCUSSION AND PLAN: I will continue our mobilization efforts with physical therapy and try to get her into a chair t.i.d. and increase as tolerated. Supportive measures will otherwise be continued. She has thrush on her tongue. A brief course of antifungal medication will be provided. Pulmonary will continue to follow. Job ID: [id number] [facility]
--- NOTE | 2019-11-15 15:17 | PDOC.HOSPP ---
- Subjective Encounter Date: 11/15/19 Encounter Time: 15:15 Subjective: f/u for resp failure and COPD exacerbation requiring mech ventilation for 6 days now on O2 @ 3L/min NC. Nursing reports hypotensive episode after receiving Xanax today. - Objective Vital Signs & Weight: Vital Signs (12 hours) Temp Pulse Pulse Resp BP Pulse Ox Pulse Ox 11/15/19 14:49 70 23 H 95 11/15/19 11:25 98.0 F 11/15/19 11:14 72 24 H 94 L 11/15/19 09:50 76 122/78 93 L 11/15/19 08:14 98 11/15/19 08:13 66 20 98 11/15/19 07:25 98 11/15/19 07:11 96.2 F L 11/15/19 03:21 97.0 F L Weight Admit Weight 104 lb 0.931 oz Weight 107 lb 3.2 oz Most Recent Monitor Data Heart Rate from ECG 72 NIBP 121/66 NIBP BP-Mean 84 Respiration from ECG 12 SpO2 98 I&O: 11/14/19 11/15/19 11/16/19 06:59 06:59 06:59 Intake Total 717.2 1050 Output Total 1300 725 Balance -582.8 325 Result Diagrams: 11/15/19 03:24 11/15/19 03:24 Additional Labs: Microbiology 11/05/19 10:07 Nasopharyngeal swab Respiratory Virus Panel (PCR) - Final 11/05/19 10:07 Nasal swab Influenza Types A,B Direct EIA - Final 11/05/19 08:42 Venous blood - Left Arm Blood Culture - Final NO GROWTH IN 5 DAYS 11/05/19 07:56 Venous blood - Left Arm Blood Culture - Final NO GROWTH IN 5 DAYS EKG Reviewed by me: Yes (Tele - Paced in 70's) Hospitalist ROS - Medication Medications: Active Medications Generic Name Dose Route Start Last Admin Trade Name Freq PRN Reason Stop Dose Admin Albuterol/Ipratropium 3 ml 11/05/19 14:30 11/15/19 14:49 Duoneb NEB 3 ml [id number] ALBERTA Administration Alprazolam 0.25 mg 11/11/19 13:09 11/15/19 11:30 Xanax PO 0.25 mg QIDPRN PRN Administration Anxiety/Agitation Apixaban 2.5 mg 11/13/19 09:00 11/15/19 07:52 Eliquis PO 2.5 mg BID ALBERTA Administration Arformoterol Tartrate 15 mcg 11/05/19 18:30 11/15/19 08:13 Brovana NEB 15 mcg BID-RT ALBERTA Administration Aspirin 81 mg 11/06/19 09:00 11/15/19 07:52 Ecotrin PO 81 mg DAILY ALBERTA Administration Bisacodyl 10 mg 11/14/19 00:16 11/14/19 01:12 Dulcolax [place] 10 mg Q8H PRN Administration Constipation Budesonide 0.5 mg 11/06/19 18:30 11/15/19 08:13 Pulmicort Neb Solution NEB 0.5 mg BID-RT ALBERTA Administration Diltiazem HCl 180 mg 11/13/19 09:00 11/15/19 07:52 Cardizem Cd PO 180 mg DAILY ALBERTA Administration Famotidine 20 mg 11/12/19 21:00 11/14/19 20:59 Pepcid PO 20 mg 2100 ALBERTA Administration Furosemide 20 mg 11/10/19 06:00 11/15/19 05:38 Lasix SLOW IVP 20 mg 0600 ALBERTA Administration Diltiazem HCl 125 mg/ Sodium 125 mls @ 5 mls/hr 11/05/19 10:30 11/11/19 16:42 Chloride IVPB 125 mls INF ALBERTA Administration 5 MG/HR Potassium Chloride 40 meq/ 100 mls @ 50 mls/hr 11/05/19 12:54 11/13/19 06:04 Device IVPB 100 mls ASDIR PRN Administration FOR SERUM K+ 2.5 - 3.5 Metoprolol Tartrate 25 mg 11/14/19 21:00 11/15/19 07:53 Lopressor PO 25 mg BID ALBERTA Administration Morphine Sulfate 4 mg 11/11/19 22:18 11/11/19 22:34 Morphine SLOW IVP 4 mg Q2H PRN Administration Congestion Potassium Chloride 40 meq 11/05/19 12:54 11/11/19 08:13 Klor-Con PER TUBE 40 meq ASDIR PRN Administration FOR SERUM K+ 2.5-3.5 Propofol 1,000 mg 11/05/19 12:53 11/10/19 09:02 Diprivan IV 12/05/19 12:53 1,000 mg INF PRN Administration TO ACHIEVE GOAL RASS Protocol Sodium Chloride 10 ml 11/05/19 21:00 11/15/19 07:53 Flush - Normal Saline IVF 10 ml Q12HR ALBERTA Administration Sodium Chloride 10 ml 11/05/19 12:48 11/14/19 06:01 Flush - Normal Saline IVF 10 ml PRN PRN Administration Saline Flush - Exam General Appearance: ill appearing General - other findings: somnolent Eye: PERRL, anicteric sclera ENT: normocephalic atraumatic, no oropharyngeal lesions Neck: supple, symmetric, no JVD, no thyromegaly Heart: RRR, no gallops, no rubs, normal peripheral pulses Heart - other findings: S1, S2 Respiratory - other findings: coarse sounds, dimininished in bases, occasional wheezes Gastrointestinal: soft, non-tender, non-distended, normal bowel sounds, no palpable masses Extremities: no cyanosis, no clubbing, no edema Skin: normal turgor Musculoskeletal: generalized weakness, diffuse muscle atrophy Psychiatric: oriented to person, somnolent, lethargic Hosp A/P (1) Acute respiratory failure with hypoxia and hypercapnia Code(s): J96.01 - ACUTE RESPIRATORY FAILURE WITH HYPOXIA; J96.02 - ACUTE RESPIRATORY FAILURE WITH HYPERCAPNIA Status: Acute Plan: Continue O2 supplementation via NC, pulmonary supportive mgmt (2) COPD exacerbation Code(s): J44.1 - CHRONIC OBSTRUCTIVE PULMONARY DISEASE W (ACUTE) EXACERBATION Status: Acute Plan: Continue Prednisone/Brovana/Duonebs (3) Atrial fibrillation with RVR Code(s): I48.91 - UNSPECIFIED ATRIAL FIBRILLATION Status: Acute Plan: Current rate-controlled, paced rhythm, continue Diltiazem/Metoprolol/Eliquis (4) Influenza A Code(s): J10.1 - FLU DUE TO OTH IDENT INFLUENZA VIRUS W OTH RESP MANIFEST Status: Acute Plan: s/p Tamiflu, pulmonary supportive mgmt - Plan continue antibiotics, PT/OT, social service assistant, respiratory therapy, out of bed/ ambulate, DVT proph w/SCDs Stable currently Decrease Xanax 0.125mg QID PRN continue pulmonary support with Brovana/Duonebs/Prednisone Continue O2 support OOB to chair Rehab/SNF options AM lab: BMP, CBC, Mg++, PO3
[2019-11-15] MEDS: Famotidine 20 MG TAB PO SCH (21:27)
[2019-11-16] MEDS: Furosemide 20 MG/2 ML VIAL SLOW IVP SCH (05:37)
[2019-11-16 06:04] LABS: #Lymphocytes 0.1 thou/uL (1.20-3.40); #Monocytes 0.8 thou/uL (0.11-0.59); #Neutrophils 8.9 thou/uL (1.40-6.50); %Basophils 0.1 % (0.0-1.0); %Eosinophils 0.2 % (0.0-10.0); %Lymphocytes 1.4 % (21.0-51.0); %Monocytes 7.9 % (0.0-10.0); %Neutrophils 90.4 % (42.0-75.0); Hemoglobin 7.5 g/dL (12.0-16.0); Mean Corpuscular HGB CONC 32.9 g/dL (32.0-36.0); Mean Corpuscular Hemoglobin 31.2 pg (27.0-31.0); Mean Platelet Volume 7.1 fL (7.4-10.4); Platelet Count 245 thou/uL (130-400); RBC Distribution Width 13.8 % (11.5-14.5); White Blood Cell (WBC) Count 9.9 thou/uL (4.8-10.8)
[2019-11-16 06:27] LABS: Phosphorus 2.8 mg/dL (2.3-4.7)
[2019-11-16 06:28] LABS: BUN (Urea Nitrogen) 30 mg/dL (9.8-20.1); Calc. Creatinine Clearance 54 mL/min (70-130); Calcium 8.5 mg/dL (7.8-10.44); Estimated GFR-MDRD Greater than 90; Glucose 79 mg/dL (83-110)
[2019-11-16 06:37] LABS: Anion Gap 12 mmol/L (10-20); Chloride 92 mmol/L (98-107); Potassium 3.4 mmol/L (3.5-5.1); Sodium 143 mmol/L (136-145)
[2019-11-16 06:51] LABS: Carbon Dioxide 42 mmol/L (23-31)
[2019-11-16] MEDS: Arformoterol 15 MCG/2 ML NEB NEB SCH ×2 (07:11→20:09)
[2019-11-16] MEDS: Budesonide 0.5 MG/2 ML NEB NEB SCH ×2 (07:11→20:09)
[2019-11-16] MEDS: Apixaban 2.5 MG TAB PO SCH ×2 (10:01→20:22)
[2019-11-16] MEDS: Metoprolol Tartrate 25 MG TAB PO SCH ×3 (10:01→20:22)
[2019-11-16] MEDS: predniSONE 20 MG TAB PO SCH (10:01)
[2019-11-16] MEDS: Aspirin 81 mg Enteric Coated Tablet PO SCH (10:01)
--- NOTE | 2019-11-16 12:35 | PDOC.HOSPP ---
- Subjective Encounter Date: 11/16/19 Encounter Time: 12:35 Subjective: f/u for resp failure/COPD exacerbation previously requiring mech ventilation now on O2 @ 3L/min NC. Wants to go home but remains weak considering HH with potential transition to hospice vs SNF. - Objective Vital Signs & Weight: Vital Signs (12 hours) Temp Pulse Resp Pulse Ox 11/16/19 11:20 98.2 F 11/16/19 10:41 92 27 H 97 11/16/19 07:39 100 11/16/19 07:15 97.8 F 11/16/19 07:11 97 11/16/19 07:09 75 23 H 97 11/16/19 05:17 97.7 F 11/16/19 03:29 97 Weight Admit Weight 104 lb 0.931 oz Weight 108 lb 4.8 oz Most Recent Monitor Data Heart Rate from ECG 88 NIBP 89/63 NIBP BP-Mean 71 Respiration from ECG 24 SpO2 94 I&O: 11/15/19 11/16/19 11/17/19 06:59 06:59 06:59 Intake Total 1050 580 Output Total 725 1750 Balance 325 -1170 Result Diagrams: 11/16/19 05:53 11/16/19 05:53 Additional Labs: Microbiology 11/05/19 10:07 Nasopharyngeal swab Respiratory Virus Panel (PCR) - Final 11/05/19 10:07 Nasal swab Influenza Types A,B Direct EIA - Final 11/05/19 08:42 Venous blood - Left Arm Blood Culture - Final NO GROWTH IN 5 DAYS 11/05/19 07:56 Venous blood - Left Arm Blood Culture - Final NO GROWTH IN 5 DAYS Laboratory Tests 11/13/19 11/13/19 11/14/19 04:32 04:32 03:24 WBC 6.5 Hgb 8.5 L Potassium 3.4 L 4.7 Phosphorus Magnesium 11/14/19 11/15/19 11/15/19 03:24 03:24 03:24 WBC 8.1 13.2 H Hgb 9.2 L 9.7 L Potassium 4.0 Phosphorus Magnesium 11/16/19 11/16/19 05:53 05:53 WBC Hgb Potassium Phosphorus 2.8 Magnesium 2.0 EKG Reviewed by me: Yes (Tele - V-paced) Hospitalist ROS - Medication Medications: Active Medications Generic Name Dose Route Start Last Admin Trade Name Freq PRN Reason Stop Dose Admin Albuterol/Ipratropium 3 ml 11/05/19 14:30 11/16/19 10:41 Duoneb NEB 3 ml [id number] ALBERTA Administration Apixaban 2.5 mg 11/13/19 09:00 11/16/19 10:01 Eliquis PO 2.5 mg BID ALBERTA Administration Arformoterol Tartrate 15 mcg 11/05/19 18:30 11/16/19 07:11 Brovana NEB 15 mcg BID-RT ALBERTA Administration Aspirin 81 mg 11/06/19 09:00 11/16/19 10:01 Ecotrin PO 81 mg DAILY ALBERTA Administration Bisacodyl 10 mg 11/14/19 00:16 11/14/19 01:12 Dulcolax [place] 10 mg Q8H PRN Administration Constipation Budesonide 0.5 mg 11/06/19 18:30 11/16/19 07:11 Pulmicort Neb Solution NEB 0.5 mg BID-RT ALBERTA Administration Diltiazem HCl 180 mg 11/13/19 09:00 11/16/19 10:03 Cardizem Cd PO Not Given DAILY ALBERTA Famotidine 20 mg 11/12/19 21:00 11/15/19 21:27 Pepcid PO 20 mg 2100 ALBERTA Administration Diltiazem HCl 125 mg/ Sodium 125 mls @ 5 mls/hr 11/05/19 10:30 11/11/19 16:42 Chloride IVPB 125 mls INF ALBERTA Administration 5 MG/HR Potassium Chloride 40 meq/ 100 mls @ 50 mls/hr 11/05/19 12:54 11/13/19 06:04 Device IVPB 100 mls ASDIR PRN Administration FOR SERUM K+ 2.5 - 3.5 Metoprolol Tartrate 25 mg 11/14/19 21:00 11/16/19 10:02 Lopressor PO Not Given BID ALBERTA Morphine Sulfate 4 mg 11/11/19 22:18 11/11/19 22:34 Morphine SLOW IVP 4 mg Q2H PRN Administration Congestion Potassium Chloride 40 meq 11/05/19 12:54 11/11/19 08:13 Klor-Con PER TUBE 40 meq ASDIR PRN Administration FOR SERUM K+ 2.5-3.5 Prednisone 20 mg 11/16/19 08:00 11/16/19 10:01 Prednisone PO 20 mg QAM-WM ALBERTA Administration Propofol 1,000 mg 11/05/19 12:53 11/10/19 09:02 Diprivan IV 12/05/19 12:53 1,000 mg INF PRN Administration TO ACHIEVE GOAL RASS Protocol Sodium Chloride 10 ml 11/05/19 21:00 11/16/19 10:01 Flush - Normal Saline IVF 10 ml Q12HR ALBERTA Administration Sodium Chloride 10 ml 11/05/19 12:48 11/14/19 06:01 Flush - Normal Saline IVF 10 ml PRN PRN Administration Saline Flush - Exam General Appearance: NAD, awake alert Eye: PERRL, anicteric sclera ENT: normocephalic atraumatic, no oropharyngeal lesions Neck: supple, symmetric, no JVD, no thyromegaly Heart: RRR, no gallops, no rubs, normal peripheral pulses Heart - other findings: S1, S2 Respiratory - other findings: diminished in bases, occasional exp wheeze Gastrointestinal: soft, non-tender, non-distended, normal bowel sounds, no palpable masses Extremities: no cyanosis, no clubbing, no edema Skin: normal turgor, no lesions Neurological: cranial nerve grossly intact, no new deficit Musculoskeletal: normal tone, generalized weakness Psychiatric: A&O x 3 Hosp A/P (1) Acute respiratory failure with hypoxia and hypercapnia Code(s): J96.01 - ACUTE RESPIRATORY FAILURE WITH HYPOXIA; J96.02 - ACUTE RESPIRATORY FAILURE WITH HYPERCAPNIA Status: Acute Plan: Continue O2 supplementation @ 3L/min NC, see below #2 (2) COPD exacerbation Code(s): J44.1 - CHRONIC OBSTRUCTIVE PULMONARY DISEASE W (ACUTE) EXACERBATION Status: Acute Plan: Continue Brovana/Pulmicort/Duonebs/Prednisone (3) Atrial fibrillation with RVR Code(s): I48.91 - UNSPECIFIED ATRIAL FIBRILLATION Status: Acute Plan: V-pacing currently, continue Diltiazem 180mg po daily, Eliquis 2.5mg BID (4) Influenza A Code(s): J10.1 - FLU DUE TO OTH IDENT INFLUENZA VIRUS W OTH RESP MANIFEST Status: Acute Plan: Completed anti-viral course - Plan PT/OT, forensic social worker, respiratory therapy, DVT proph w/SCDs Consults: Palliative Care Stable currently Decrease Xanax 0.125mg QID PRN continue pulmonary support with Brovana/Duonebs/Prednisone Continue O2 support OOB to chair SNF vs HH pending AM lab: BMP, CBC, Mg++, PO3
--- NOTE | 2019-11-16 13:00 | PRG ---
DATE OF SERVICE: 11/16/2019 SERVICE: Pulmonary Medicine. INTERVAL HISTORY: The patient is doing fine from Respiratory standpoint. Breathing comfortably. Denies any current chest discomfort. That being said, with simple speech, the patient has increasing dyspnea. She indicates she wants to go home. We talked about our options moving forward. As I see it, she can go home with hospice, where she can transition to a [facility] facility in the hopes that she can recover some function, strength, and transition home at some later date. She once again told me she wanted to go home. That being said, she also has suggested that she is not ready to transition to comfort care only under the care of hospice. From my perspective, what she wants is not possible. Otherwise, there has been no interval change to her condition. She denies any current chest discomfort or difficulty breathing, particularly when she is not talking. PHYSICAL EXAMINATION: VITAL SIGNS: Afebrile, pulse 92, blood pressure 89/63, respirations 24, saturation 94%, currently on 3 L nasal cannula. GENERAL: The patient is awake and alert, in no apparent distress. LUNGS: Reduced air entry with a prolonged expiratory phase. No wheezing appreciated. HEART: Normal rate. Regular. ABDOMEN: Soft, nontender, and nondistended. Bowel sounds are positive. MUSCULOSKELETAL: No cyanosis or clubbing. There is 2 to 3+ pitting in the bilateral lower extremities. NEUROLOGIC: Grossly nonfocal. LABORATORY DATA: WBC 9.9, hemoglobin 7.5 and downtrending, platelets 245,000. Bicarb 42, chloride 92, potassium 3.4. Creatinine is downtrending, the BUN is stable. Magnesium 2.0, phosphorus 2.8. Blood cultures x2 are unremarkable. Influenza A is positive. ASSESSMENT: 1. Acute on chronic hypoxic and hypercapnic respiratory failure. 2. Chronic obstructive pulmonary disease with acute exacerbation secondary to influenza A. 3. Atrial fibrillation with rapid ventricular response, rate controlled. 4. Thrush. DISCUSSION AND PLAN: The patient is doing okay from Respiratory standpoint. From my perspective, what she wants is not possible. Her options at this point are to go home with hospice, or to transition into a [facility]p facility, where she can pursue aggressive physical therapy and rehabilitation. That being said, at this point, I believe that she has an advanced debility, and the likelihood of a meaningful functional recovery is quite bleak. Supportive care will be continued. We will continue antibiotics, nebulized medications, and steroids. Job ID: [id number] [facility]
[2019-11-16] MEDS: Potassium Chloride 20 MEQ TAB PO SCH ×2 (13:43→17:36)
[2019-11-16 15:18] LABS: Hemoglobin 8.8 g/dL (12.0-16.0)
[2019-11-16] MEDS: Famotidine 20 MG TAB PO SCH (20:22)
[2019-11-16] MEDS: ALPRAZolam 0.25 MG TAB PO PRN (23:32)
[2019-11-17] MEDS: Morphine 4 MG/ML VIAL SLOW IVP PRN (04:36)
[2019-11-17 04:52] LABS: Hemoglobin 7.8 g/dL (12.0-16.0)
[2019-11-17 05:17] LABS: BUN (Urea Nitrogen) 31 mg/dL (9.8-20.1); Calc. Creatinine Clearance 50 mL/min (70-130); Calcium 8.8 mg/dL (7.8-10.44); Estimated GFR-MDRD 90; Glucose 105 mg/dL (83-110)
[2019-11-17 05:26] LABS: Anion Gap 12 mmol/L (10-20); Carbon Dioxide 40 mmol/L (23-31); Chloride 95 mmol/L (98-107); Potassium 4.3 mmol/L (3.5-5.1); Sodium 143 mmol/L (136-145)
[2019-11-17] MEDS: Apixaban 2.5 MG TAB PO SCH ×2 (08:42→20:32)
[2019-11-17] MEDS: Metoprolol Tartrate 25 MG TAB PO SCH ×2 (08:42→20:32)
[2019-11-17] MEDS: Aspirin 81 mg Enteric Coated Tablet PO SCH (08:42)
[2019-11-17] MEDS: predniSONE 20 MG TAB PO SCH (08:42)
[2019-11-17] MEDS: Arformoterol 15 MCG/2 ML NEB NEB SCH ×2 (08:43→20:37)
[2019-11-17] MEDS: Budesonide 0.5 MG/2 ML NEB NEB SCH ×2 (08:44→20:35)
--- NOTE | 2019-11-17 11:01 | PDOC.HOSPP ---
- Subjective Encounter Date: 11/17/19 Encounter Time: 10:45 Subjective: f/u for resp failure, COPD on current O2 @ 3L/min NC. Feels better overall but still weak. - Objective Vital Signs & Weight: Vital Signs (12 hours) Temp Pulse Ox 11/17/19 08:00 96 11/17/19 07:14 96.2 F L 11/17/19 00:41 97.5 F L Weight Admit Weight 104 lb 0.931 oz Weight 100 lb 11.2 oz Most Recent Monitor Data Heart Rate from ECG 72 NIBP 138/62 NIBP BP-Mean 87 Respiration from ECG 13 SpO2 96 I&O: 11/16/19 11/17/19 11/18/19 06:59 06:59 06:59 Intake Total 580 1090 Output Total 1750 1000 Balance -1170 90 Result Diagrams: 11/17/19 04:43 11/17/19 04:43 Additional Labs: Microbiology 11/05/19 10:07 Nasopharyngeal swab Respiratory Virus Panel (PCR) - Final 11/05/19 10:07 Nasal swab Influenza Types A,B Direct EIA - Final 11/05/19 08:42 Venous blood - Left Arm Blood Culture - Final NO GROWTH IN 5 DAYS 11/05/19 07:56 Venous blood - Left Arm Blood Culture - Final NO GROWTH IN 5 DAYS Laboratory Tests 11/13/19 11/13/19 11/14/19 04:32 04:32 03:24 WBC 6.5 Hgb 8.5 L Potassium 3.4 L 4.7 Phosphorus Magnesium 11/14/19 11/15/19 11/15/19 03:24 03:24 03:24 WBC 8.1 13.2 H Hgb 9.2 L 9.7 L Potassium 4.0 Phosphorus Magnesium 11/16/19 11/16/19 05:53 05:53 WBC Hgb Potassium Phosphorus 2.8 Magnesium 2.0 EKG Reviewed by me: Yes (Tele - A-fib in 's) Hospitalist ROS - Medication Medications: Active Medications Generic Name Dose Route Start Last Admin Trade Name Freq PRN Reason Stop Dose Admin Albuterol/Ipratropium 3 ml 11/05/19 14:30 11/17/19 08:44 Duoneb NEB Not Given [id number] ALBERTA Alprazolam 0.125 mg 11/15/19 15:35 11/16/19 23:32 Xanax PO 0.125 mg QIDPRN PRN Administration Anxiety/Agitation Apixaban 2.5 mg 11/13/19 09:00 11/17/19 08:42 Eliquis PO 2.5 mg BID ALBERTA Administration Arformoterol Tartrate 15 mcg 11/05/19 18:30 11/17/19 08:43 Brovana NEB Not Given BID-RT ALBERTA Aspirin 81 mg 11/06/19 09:00 11/17/19 08:42 Ecotrin PO 81 mg DAILY ALBERTA Administration Bisacodyl 10 mg 11/14/19 00:16 11/14/19 01:12 Dulcolax ID 10 mg Q8H PRN Administration Constipation Budesonide 0.5 mg 11/06/19 18:30 11/17/19 08:44 Pulmicort Neb Solution NEB Not Given BID-RT ALBERTA Diltiazem HCl 180 mg 11/13/19 09:00 11/17/19 08:42 Cardizem Cd PO 180 mg DAILY ALBERTA Administration Famotidine 20 mg 11/12/19 21:00 11/16/19 20:22 Pepcid PO 20 mg 2100 ALBERTA Administration Diltiazem HCl 125 mg/ Sodium 125 mls @ 5 mls/hr 11/05/19 10:30 11/11/19 16:42 Chloride IVPB 125 mls INF ALBERTA Administration 5 MG/HR Potassium Chloride 40 meq/ 100 mls @ 50 mls/hr 11/05/19 12:54 11/13/19 06:04 Device IVPB 100 mls ASDIR PRN Administration FOR SERUM K+ 2.5 - 3.5 Metoprolol Tartrate 25 mg 11/14/19 21:00 11/17/19 08:42 Lopressor PO 25 mg BID ALBERTA Administration Morphine Sulfate 4 mg 11/11/19 22:18 11/17/19 04:36 Morphine SLOW IVP 4 mg Q2H PRN Administration Congestion Potassium Chloride 40 meq 11/05/19 12:54 11/11/19 08:13 Klor-Con PER TUBE 40 meq ASDIR PRN Administration FOR SERUM K+ 2.5-3.5 Prednisone 20 mg 11/16/19 08:00 11/17/19 08:42 Prednisone PO 20 mg QAM-WM ALBERTA Administration Sodium Chloride 10 ml 11/05/19 21:00 11/17/19 08:49 Flush - Normal Saline IVF 10 ml Q12HR ALBERTA Administration Sodium Chloride 10 ml 11/05/19 12:48 11/14/19 06:01 Flush - Normal Saline IVF 10 ml PRN PRN Administration Saline Flush - Exam General Appearance: NAD, ill appearing Eye: PERRL, anicteric sclera ENT: normocephalic atraumatic, no oropharyngeal lesions Neck: supple, symmetric, no JVD, no thyromegaly, no lymphadenopathy Heart: RRR, no gallops, no rubs, normal peripheral pulses Heart - other findings: S1, S2 Respiratory - other findings: diminished bilaterally, occasional exp wheeze Gastrointestinal: soft, non-tender, non-distended, normal bowel sounds, no palpable masses Extremities: no cyanosis, no clubbing, no edema Skin: normal turgor, no lesions Neurological: cranial nerve grossly intact, no new deficit Musculoskeletal: generalized weakness, diffuse muscle atrophy Psychiatric: A&O x 3 Hosp A/P (1) Acute respiratory failure with hypoxia and hypercapnia Code(s): J96.01 - ACUTE RESPIRATORY FAILURE WITH HYPOXIA; J96.02 - ACUTE RESPIRATORY FAILURE WITH HYPERCAPNIA Status: Acute Plan: Remains on 3L/min NC, continue pulmonary supportive mgmt (2) COPD exacerbation Code(s): J44.1 - CHRONIC OBSTRUCTIVE PULMONARY DISEASE W (ACUTE) EXACERBATION Status: Acute Plan: Continue Brovana/Pulmicort/Duonebs/Prednisone (3) Atrial fibrillation with RVR Code(s): I48.91 - UNSPECIFIED ATRIAL FIBRILLATION Status: Acute Plan: Rate-controlled currently, continue Diltiazem/Eliquis (4) Influenza A Code(s): J10.1 - FLU DUE TO OTH IDENT INFLUENZA VIRUS W OTH RESP MANIFEST Status: Acute Plan: s/p anti-viral tx - Plan PT/OT, social worker delinquency prevention, respiratory therapy, out of bed/ambulate, DVT proph w/ SCDs Stable currently Decrease Xanax 0.125mg QID PRN continue pulmonary support with Brovana/Duonebs/Prednisone Continue O2 support OOB with PT Family wishing to pursue HH option with potential transition to hospice AM lab: H/H Likely d/c in am
[2019-11-17 12:20] VITALS: BMI 18.3
--- NOTE | 2019-11-17 13:51 | PRG ---
DATE OF SERVICE: 11/17/2019 SUBJECTIVE: Ms. Zamora is clinically stable over the weekend. OBJECTIVE: VITAL SIGNS: Heart rates in the 70s. She is afebrile. Respiratory rates in the teens, blood pressure 91/72. Lungs, heart, abdomen, and extremities are essentially unchanged. LABORATORY DATA: Hemoglobin stable at 7.8. Electrolytes are unremarkable. Bicarb is up to 40. IMPRESSION: 1. Advanced chronic obstructive pulmonary disease. 2. Status post intubation for flu and chronic obstructive pulmonary disease. 3. Status post second intubation this year for rapid atrial fibrillation induced congestive heart failure. 4. Extreme deconditioning. We will continue with steroids, nebulizer treatments, and supportive care. Placement in some type of skilled facility is the next step. Job ID: [id number]
--- NOTE | 2019-11-17 16:21 | PDOC.PALCO ---
Palliative Care Consult - Consult Details Requesting Physician: Dr Bush Reason for Consult: goals of care, complex decision-making Family Members Present: Communicated with patient daughter - Pertinent HPI 84 year old female who was at rehab and experienced increase in shortness of breath and tachypnea, required intubation on presentation to the emergency room and admitted to CCU for further management. Eventually extubated and initial palliative care contact was initiated by tJ Price RN. - Social History Smoking Status: Former smoker Smoking: cigarettes Alcohol Use: none Drug Use History: none Living Situation: , other (prior to previous hospital stay lived independently with spouse) - Allergies Allergies/Adverse Reactions: Allergies Allergy/AdvReac Type Severity Reaction Status Date / Time alendronate sodium Allergy Verified 11/08/19 12:55 [From Fosamax] atorvastatin calcium Allergy Verified 11/08/19 12:55 [From Lipitor] penicillin Allergy Verified 11/08/19 12:55 pravastatin Allergy Verified 11/08/19 12:55 "Ranjeet" Allergy Uncoded 11/08/19 12:55 Adhesives Allergy Uncoded 11/08/19 12:55 - Subjective Pronounced weakness, emaciated. Awake, alert. - ROS Constitutional: loss appetite, weakness ENT: difficulty swallowing, other (denies) Respiratory: shortness of breath Cardiology: light headedness Gastrointestinal: bowel incontinence Psychological: anxiety - Objective Vital Signs: Vital Signs - Most Recent Temp Pulse Resp BP Pulse Ox 96.2 F L 79 17 110/80 96 11/17/19 15:12 11/17/19 11:31 11/17/19 11:31 11/16/19 14:43 11/17/19 08:00 Palliative Performance Scale: 30 - Physical Exam Constitutional: cachectic, ill appearing HEENT: moist MMs, sclera anicteric Respiratory: diminished lung sound, wheezing present Cardiovascular: RRR Gastrointestinal: non-tender Genitourinary: carlson catheter Musculoskeletal: no cyanosis, no clubbing, diffuse muscle atrophy Neurology: moves all 4 limbs Skin: fragile, friable Deviation from normal: Oriented to self, lethargic - Problem List (1) Palliative care encounter Code(s): Z51.5 - ENCOUNTER FOR PALLIATIVE CARE Current Visit: Yes Status: Acute (2) Physical deconditioning Code(s): R53.81 - OTHER MALAISE Current Visit: Yes Status: Acute (3) Acute on chronic diastolic (congestive) heart failure Code(s): I50.33 - ACUTE ON CHRONIC DIASTOLIC (CONGESTIVE) HEART FAILURE Current Visit: Yes Status: Acute (4) Acute respiratory failure with hypoxia and hypercapnia Code(s): J96.01 - ACUTE RESPIRATORY FAILURE WITH HYPOXIA; J96.02 - ACUTE RESPIRATORY FAILURE WITH HYPERCAPNIA Current Visit: No Status: Acute (5) COPD exacerbation Code(s): J44.1 - CHRONIC OBSTRUCTIVE PULMONARY DISEASE W (ACUTE) EXACERBATION Current Visit: No Status: Acute (6) Malnutrition of mild degree Code(s): E44.1 - MILD PROTEIN-CALORIE MALNUTRITION Current Visit: No Status : Acute - Plan/Recommendations Plan: Family has elected to attempt to transition home with Home Health. Hoping to utilize [facility] and if needed in the future can transition to Hospice. The family is reluctant to place Mrs Zamora in a detention secondary to isolation related to Covid 19, and would prefer to have her in the home setting with family close for support. CM working on as per notes, please also refer to Jt Price RNsupervisor [employer] notes. Emotional support offered. [40] minutes spent on this encounter with >50% of the time in counseling and coordination of care. Thank you for this very appropriate consult.
[2019-11-17 16:50] VITALS: BP 61/52
[2019-11-17] MEDS: Famotidine 20 MG TAB PO SCH (20:32)
[2019-11-17] MEDS: ALPRAZolam 0.25 MG TAB PO PRN (20:32)
[2019-11-18] MEDS: Morphine 4 MG/ML VIAL SLOW IVP PRN (00:50)
[2019-11-18] MEDS ORDERED: Sodium Chloride 0.9% 500 ML IV SCH (02:15)
[2019-11-18 02:27] LABS: #Lymphocytes 0.2 thou/uL (1.20-3.40); #Monocytes 0.5 thou/uL (0.11-0.59); #Neutrophils 7.9 thou/uL (1.40-6.50); %Basophils 0.1 % (0.0-1.0); %Eosinophils 0.4 % (0.0-10.0); %Lymphocytes 2.1 % (21.0-51.0); %Monocytes 5.8 % (0.0-10.0); %Neutrophils 91.7 % (42.0-75.0); Hemoglobin 6.5 g/dL (12.0-16.0); Mean Corpuscular HGB CONC 32.6 g/dL (32.0-36.0); Mean Corpuscular Hemoglobin 31.2 pg (27.0-31.0); Mean Corpuscular Volume 95.6 fL (78.0-98.0); Platelet Count 191 thou/uL (130-400); Red Blood Cell (RBC) Count 2.07 mill/uL (4.20-5.40); White Blood Cell (WBC) Count 8.6 thou/uL (4.8-10.8)
[2019-11-18 03:07] LABS: BUN (Urea Nitrogen) 37 mg/dL (9.8-20.1); Calc. Creatinine Clearance 48 mL/min (70-130); Calcium 8.8 mg/dL (7.8-10.44); Estimated GFR-MDRD Greater than 90; Glucose 112 mg/dL (83-110)
[2019-11-18 03:18] LABS: Anion Gap 13 mmol/L (10-20); Carbon Dioxide 40 mmol/L (23-31); Chloride 96 mmol/L (98-107); Potassium 4.5 mmol/L (3.5-5.1); Sodium 144 mmol/L (136-145)
[2019-11-18] MEDS: Arformoterol 15 MCG/2 ML NEB NEB SCH ×2 (06:34→18:13)
[2019-11-18] MEDS: Budesonide 0.5 MG/2 ML NEB NEB SCH ×2 (06:34→18:13)
[2019-11-18] MEDS: Apixaban 2.5 MG TAB PO SCH (10:17)
[2019-11-18] MEDS: Metoprolol Tartrate 25 MG TAB PO SCH ×2 (10:17→20:27)
[2019-11-18] MEDS: predniSONE 20 MG TAB PO SCH (10:17)
[2019-11-18] MEDS: Aspirin 81 mg Enteric Coated Tablet PO SCH (10:17)
--- NOTE | 2019-11-18 11:07 | PDOC.FMACP ---
Advance Care Planning - Problem (1) Acute respiratory failure with hypoxia and hypercapnia Status: Acute Code(s): J96.01 - ACUTE RESPIRATORY FAILURE WITH HYPOXIA; J96.02 - ACUTE RESPIRATORY FAILURE WITH HYPERCAPNIA (2) COPD exacerbation Status: Acute Code(s): J44.1 - CHRONIC OBSTRUCTIVE PULMONARY DISEASE W (ACUTE ) EXACERBATION (3) Atrial fibrillation with RVR Status: Acute Code(s): I48.91 - UNSPECIFIED ATRIAL FIBRILLATION (4) Influenza A Status: Acute Code(s): J10.1 - FLU DUE TO OTH IDENT INFLUENZA VIRUS W OTH RESP MANIFEST - Note Participants: patient, family Summary: Advanced Care Planning was discussed. The diagnosis, prognosis and goals of care were discussed. Appropriate forms and documentation to accomplish the goals of care were discussed. All questions were answered. The Palliative Care Team will be engaged to assist with completion of any outstanding forms that are needed. Discussed with pt and daughter regarding HH options and potential transition to hospice care at home. The pt wants to return home and the daughter agrees. The family wishing to pursue options of care at home and likely will include hospice. Reviewed current code status as DNAR and pt wishes to continue this. Palliative and Case mgmt to meet with daughter/pt today to coordinate for home care. Total time: 20min
--- NOTE | 2019-11-18 11:22 | PDOC.EVN ---
Event Note - Event Note Event Note: Pt will require home O2 @ 4L/min NC continuously due to end-stage COPD. Continues to desaturate in the mid-70's off O2 and with movement/activity.
--- NOTE | 2019-11-18 12:28 | DIS ---
DATE OF ADMISSION: 11/05/2019 DATE OF DISCHARGE: 11/18/2019 DISCHARGE DIAGNOSES: 1. Acute on chronic hypoxic hypercapnic respiratory failure. 2. Chronic obstructive pulmonary disease exacerbation. 3. Atrial fibrillation with rapid ventricular response, controlled currently. 4. Influenza A. 5. Severe deconditioning. 6. Acute anemia likely secondarily to gastrointestinal blood loss. 7. Acute on chronic diastolic congestive heart failure. CONSULTATIONS: 1. Dr. Snowden and Dr. Landin with Pulmonology/Critical Care Service. 2. Dr. Young with Cardiology Service. PERTINENT LABORATORY AND X-RAY FINDINGS: Potassium ranged between 2.9 and 4.9. Lactic acid level 1.3. BNP 1599, previously noted 754 on 11/04/2019. TSH 0.36. CBC showed a white blood cell count ranging between 6.5 to 16.4, hemoglobin ranged between 6.5 to 10.6. COVID-19 PCR negative on 11/05/2019. Blood cultures x2 dated 11/05/2019, showed no growth at 5 days. Influenza A and B antigen 11/05/2019, negative. Respiratory viral panel dated 11/05/2019, positive for influenza A. Portable chest x-ray dated 11/05/2019, showed interval placement of endotracheal tube. Left-sided pacemaker device in place. Diffuse infiltrates bilaterally. Abdominal radiographs dated 11/13/2019, showed constipation, nonspecific bowel gas pattern. No obstruction noted. HOSPITAL COURSE: The patient was initially admitted after presenting with acute respiratory failure with hypoxia. Influenza A positive with CHF exacerbation with diastolic dysfunction. The patient was transferred from inpatient rehab, where her O2 saturations were noted in the 70% range. The patient underwent extensive evaluation including chest imaging showing bilateral infiltrates and concern for infectious process in addition to volume overload. The patient was also treated for acute COPD exacerbation. The patient was placed on bronchodilator therapy as well as given broad-spectrum IV antibiotic therapy with cefepime and vancomycin. The patient also received IV Solu-Medrol and IV Lasix. The patient was also noted with atrial fibrillation with rapid ventricular response necessitating Cardizem infusion. The patient continued to clinically decline and required intubation with placement on mechanical ventilation. The patient was monitored by the Pulmonology and Critical Care Service and ruled out for COVID-19. The patient continued to receive aggressive pulmonary supportive management, eventually transitioning off mechanical ventilation and with placement on oxygen by nasal cannula. The patient continued oxygen requirement throughout the remainder of the hospital course with O2 saturations decreasing into the mid 70% range with minimal activity or exertion. The patient also remained severely deconditioned with minimal ambulation in her room during the hospital stay. Due to her overall comorbid status, severe deconditioning, and recent respiratory failure, discussions were had with the family regarding the need for consideration of home health with hospice care. The family and the patient decided to pursue hospice care at home and will transition to home on 11/18/2019. I have examined the patient and discussed options for hospice care and home health services at the time of discharge. The family are in agreement to pursue this course of action. DISCHARGE MEDICATIONS: 1. Brovana 15 mcg nebulized b.i.d. 2. Enteric-coated aspirin 81 mg p.o. daily. 3. Pulmicort 0.5 mg inhaled b.i.d. 4. Multivitamin one tablet p.o. daily. 5. Magnesium oxide 400 mg p.o. daily. 6. Klor-Con 10 mEq p.o. daily. 7. Coenzyme Q10 of 200 mg p.o. daily. 8. ProAir HFA 2 puffs q.4 hours p.r.n. 9. Xanax 0.125 mg p.o. q.i.d. p.r.n. 10. Diltiazem CD 180 mg p.o. daily. 11. DuoNeb 3 mL nebulized q.4 hours. 12. Metoprolol tartrate 25 mg p.o. b.i.d. 13. Prednisone 20 mg p.o. daily. 14. Spiriva 18 mcg inhaled daily. FOLLOWUP: The patient may follow up with her primary care provider, Abdi Perez. CONDITION ON DISCHARGE: Guarded. ACTIVITY: Ad-luli. Rolling walker for ambulation with contact guard assistance. DIET: Regular. CODE STATUS: Do not attempt resuscitation. SPECIAL INSTRUCTIONS: The patient not a candidate for anticoagulation due to GI bleed and risk of falls. DISPOSITION: Discharged home with Home Health and Hospice on 11/18/2019. TIME SPENT: Total time in preparing and coordinating discharge is 45 minutes. Job ID: [id number]
--- NOTE | 2019-11-18 12:57 | PRG ---
DATE OF SERVICE: 11/18/2019 OBJECTIVE: VITAL SIGNS: Afebrile, heart rate 84, respiratory rate in the 20s, oximetry is 96% on 4 L, blood pressure 110/63. LUNGS: Clear. HEART: Regular rhythm. ABDOMEN: Soft. She is tearful today. LABORATORY DATA: White count 8.6, hemoglobin 6.5. She will be given blood today and her anticoagulants have been stopped. Electrolytes are unremarkable. BUN is 37, creatinine 0.61. IMPRESSION: Status post 2 intubations within a month one for flu and chronic obstructive pulmonary disease exacerbation. The second one for rapid atrial fibrillation induced congestive heart failure. Deconditioning is the biggest issue at this point in time. She will be discharged home with oxygen. Nebulizer treatments every 4 hours as needed, but a minimum four times a day. Her cardiac medications and her anticoagulants will be discontinued. I would leave her on 20 mg a day of prednisone indefinitely. The daughter will touch base with me next week. Job ID: [id number]
--- NOTE | 2019-11-18 13:53 | PDOC.HOSPP ---
- Subjective Encounter Date: 11/18/19 Encounter Time: 13:00 Subjective: f/u for resp failure, COPD exacerbation on current O2 @ 4L/min NC. Remains weak and SOB with minimal movement/exertion. Planning on returning home with and likely hospice. - Objective Vital Signs & Weight: Vital Signs (12 hours) Temp Pulse Resp Pulse Ox 11/18/19 12:08 98 F 11/18/19 11:25 84 23 H 11/18/19 07:56 96 11/18/19 07:34 97.3 F L 11/18/19 06:35 71 18 11/18/19 03:30 97.5 F L 11/18/19 02:59 70 95 11/18/19 02:58 70 12 95 Weight Admit Weight 104 lb 0.931 oz Weight 101 lb 11.2 oz Most Recent Monitor Data Heart Rate from ECG 75 NIBP 110/63 NIBP BP-Mean 78 Respiration from ECG 14 SpO2 94 I&O: 11/17/19 11/18/19 11/19/19 06:59 06:59 06:59 Intake Total 1090 620 Output Total 1000 350 Balance 90 270 Result Diagrams: 11/18/19 02:18 11/18/19 02:18 Additional Labs: Microbiology 11/05/19 10:07 Nasopharyngeal swab Respiratory Virus Panel (PCR) - Final 11/05/19 10:07 Nasal swab Influenza Types A,B Direct EIA - Final 11/05/19 08:42 Venous blood - Left Arm Blood Culture - Final NO GROWTH IN 5 DAYS 11/05/19 07:56 Venous blood - Left Arm Blood Culture - Final NO GROWTH IN 5 DAYS Laboratory Tests 11/13/19 11/13/19 11/14/19 04:32 04:32 03:24 WBC 6.5 Hgb 8.5 L Potassium 3.4 L 4.7 Phosphorus Magnesium 11/14/19 11/15/19 11/15/19 03:24 03:24 03:24 WBC 8.1 13.2 H Hgb 9.2 L 9.7 L Potassium 4.0 Phosphorus Magnesium 11/16/19 11/16/19 11/16/19 05:53 05:53 15:10 WBC Hgb 8.8 L Potassium Phosphorus 2.8 Magnesium 2.0 11/17/19 04:43 WBC Hgb 7.8 L Potassium Phosphorus Magnesium EKG Reviewed by me: Yes (Tele - intermittent V-pacing) Hospitalist ROS - Medication Medications: Active Medications Generic Name Dose Route Start Last Admin Trade Name Freq PRN Reason Stop Dose Admin Albuterol/Ipratropium 3 ml 11/05/19 14:30 11/18/19 11:25 Duoneb NEB 3 ml [id number] ALBERTA Administration Alprazolam 0.125 mg 11/15/19 15:35 11/17/19 20:32 Xanax PO 0.125 mg QIDPRN PRN Administration Anxiety/Agitation Apixaban 2.5 mg 11/13/19 09:00 11/18/19 10:17 Eliquis PO 2.5 mg BID ALBERTA Administration Arformoterol Tartrate 15 mcg 11/05/19 18:30 11/18/19 06:34 Brovana NEB 15 mcg BID-RT ALBERTA Administration Aspirin 81 mg 11/06/19 09:00 11/18/19 10:17 Ecotrin PO 81 mg DAILY ALBERTA Administration Bisacodyl 10 mg 11/14/19 00:16 11/14/19 01:12 Dulcolax MN 10 mg Q8H PRN Administration Constipation Budesonide 0.5 mg 11/06/19 18:30 11/18/19 06:34 Pulmicort Neb Solution NEB 0.5 mg BID-RT ALBERTA Administration Diltiazem HCl 180 mg 11/13/19 09:00 11/18/19 10:17 Cardizem Cd PO 180 mg DAILY ALBERTA Administration Diltiazem HCl 125 mg/ Sodium 125 mls @ 5 mls/hr 11/05/19 10:30 11/11/19 16:42 Chloride IVPB 125 mls INF ALBERTA Administration 5 MG/HR Potassium Chloride 40 meq/ 100 mls @ 50 mls/hr 11/05/19 12:54 11/13/19 06:04 Device IVPB 100 mls ASDIR PRN Administration FOR SERUM K+ 2.5 - 3.5 Metoprolol Tartrate 25 mg 11/14/19 21:00 11/18/19 10:17 Lopressor PO Not Given BID ALBERTA Morphine Sulfate 4 mg 11/11/19 22:18 11/18/19 00:50 Morphine SLOW IVP 4 mg Q2H PRN Administration Congestion Pantoprazole Sodium 40 mg 11/18/19 10:35 11/18/19 12:41 Protonix PO 11/18/19 14:00 40 mg NOW ALBERTA Administration Potassium Chloride 40 meq 11/05/19 12:54 11/11/19 08:13 Klor-Con PER TUBE 40 meq ASDIR PRN Administration FOR SERUM K+ 2.5-3.5 Prednisone 40 mg 11/18/19 08:00 11/18/19 10:17 Prednisone PO 40 mg QAM-WM ALBERTA Administration Sodium Chloride 10 ml 11/05/19 21:00 11/18/19 10:18 Flush - Normal Saline IVF 10 ml Q12HR ALBERTA Administration Sodium Chloride 10 ml 11/05/19 12:48 11/14/19 06:01 Flush - Normal Saline IVF 10 ml PRN PRN Administration Saline Flush - Exam General Appearance: awake alert, ill appearing Eye: PERRL, anicteric sclera ENT: normocephalic atraumatic, no oropharyngeal lesions Neck: supple, symmetric, no JVD, no thyromegaly Heart: no gallops, no rubs, normal peripheral pulses, irregular Heart - other findings: S1, S2 Respiratory: tachypneic Respiratory - other findings: diminished in bilat zambrano, prolonged exp phase, shallow inspiration Gastrointestinal: soft, non-tender, non-distended, normal bowel sounds, no palpable masses Extremities: no cyanosis, no clubbing, no edema Skin: normal turgor, no lesions Neurological: cranial nerve grossly intact, no new deficit Musculoskeletal: generalized weakness, diffuse muscle atrophy Psychiatric: oriented to person, oriented to place, somnolent Hosp A/P (1) Acute respiratory failure with hypoxia and hypercapnia Code(s): J96.01 - ACUTE RESPIRATORY FAILURE WITH HYPOXIA; J96.02 - ACUTE RESPIRATORY FAILURE WITH HYPERCAPNIA Status: Acute Plan: Continues to require O2 supplementation, will need home O2 as resting SPO2 was 72% (2) COPD exacerbation Code(s): J44.1 - CHRONIC OBSTRUCTIVE PULMONARY DISEASE W (ACUTE) EXACERBATION Status: Acute Plan: Continue supportive mgmt, Duonebs/Prednisone, home O2 (3) Atrial fibrillation with RVR Code(s): I48.91 - UNSPECIFIED ATRIAL FIBRILLATION Status: Acute Plan: No anticoagulation due to worsening anemia and high risk of bleeding and falls (4) Influenza A Code(s): J10.1 - FLU DUE TO OTH IDENT INFLUENZA VIRUS W OTH RESP MANIFEST Status: Acute - Plan plan discussed w/ family, PT/OT, social director, respiratory therapy, DVT proph w/SCDs Consults: Hospice, Palliative Care Stable currently Decrease Xanax 0.125mg QID PRN continue pulmonary support with Brovana/Duonebs/Prednisone Continue O2 support and arrange for home O2 OOB with PT Family wishing to pursue HH option with potential transition to hospice today Lab: T&C for 1u PRBC's and transfuse 1u today OOH DNR signed Home today
[2019-11-18] MEDS: ALPRAZolam 0.25 MG TAB PO PRN ×2 (17:56→20:27)
--- NOTE | 2019-11-18 20:26 | PDOC.EVN ---
Event Note - Event Note Event Note: Pt's discharge was held due to coordination of care with hospice at home. Plan to d/c home in am 11/19/19.
[2019-11-18] MEDS ORDERED: Lorazepam 2 MG/ML VIAL SLOW IVP SCH (23:45)
[2019-11-19 04:50] LABS: BUN (Urea Nitrogen) 32 mg/dL (9.8-20.1); Calc. Creatinine Clearance 50 mL/min (70-130); Calcium 8.5 mg/dL (7.8-10.44); Estimated GFR-MDRD Greater than 90; Glucose 98 mg/dL (83-110)
[2019-11-19 04:59] LABS: Anion Gap 13 mmol/L (10-20); Carbon Dioxide 37 mmol/L (23-31); Chloride 96 mmol/L (98-107); Potassium 4.4 mmol/L (3.5-5.1); Sodium 142 mmol/L (136-145)
[2019-11-19] MEDS: Arformoterol 15 MCG/2 ML NEB NEB SCH (06:25)
[2019-11-19] MEDS: Budesonide 0.5 MG/2 ML NEB NEB SCH (06:27)
[2019-11-19 08:34] LABS: Hemoglobin 8.8 g/dL (12.0-16.0)
[2019-11-19] MEDS ORDERED: Pantoprazole 40 MG GRANULES PACKET PO SCH (09:00)
[2019-11-19] MEDS: Metoprolol Tartrate 25 MG TAB PO SCH (09:01)
[2019-11-19] MEDS: predniSONE 20 MG TAB PO SCH (09:01)
[2019-11-19] MEDS: Aspirin 81 mg Enteric Coated Tablet PO SCH (09:01)
--- NOTE | 2019-11-19 09:52 | PDOC.PALPN ---
Palliative Progress Note - Subjective Soft speech, one to two words. Lethargic, comfortable - Objective Vital Signs: Vital Signs - Most Recent Temp Pulse Resp BP Pulse Ox 96.2 F L 76 21 H 61/52 L 99 11/19/19 07:10 11/19/19 06:25 11/19/19 06:25 11/17/19 15:02 11/19/19 08:00 - Physical Exam Constitutional: NAD, ill appearing HEENT: EOMI, moist MMs, sclera anicteric Respiratory: no wheezing, accessory muscle use, diminished lung sound Cardiovascular: RRR, diminished peripheral pulses Gastrointestinal: non-tender Genitourinary: incontinent Musculoskeletal: diffuse muscle atrophy Deviation from normal: cyanotic nail beds to toes. Mottling to toes and bottom of feet Neurology: moves all 4 limbs Skin: fragile Deviation from normal: mottling to feet, Psychiatric: normal mood - Assessment (1) Palliative care encounter Code(s): Z51.5 - ENCOUNTER FOR PALLIATIVE CARE Current Visit: Yes Status: Acute (2) Physical deconditioning Code(s): R53.81 - OTHER MALAISE Current Visit: Yes Status: Acute (3) Acute on chronic diastolic (congestive) heart failure Code(s): I50.33 - ACUTE ON CHRONIC DIASTOLIC (CONGESTIVE) HEART FAILURE Current Visit: Yes Status: Acute (4) Acute respiratory failure with hypoxia and hypercapnia Code(s): J96.01 - ACUTE RESPIRATORY FAILURE WITH HYPOXIA; J96.02 - ACUTE RESPIRATORY FAILURE WITH HYPERCAPNIA Current Visit: No Status: Acute (5) COPD exacerbation Code(s): J44.1 - CHRONIC OBSTRUCTIVE PULMONARY DISEASE W (ACUTE) EXACERBATION Current Visit: No Status: Acute (6) Malnutrition of mild degree Code(s): E44.1 - MILD PROTEIN-CALORIE MALNUTRITION Current Visit: No Status : Acute - Plan Plan: Home with [facility], equipment being delivered. Emotional support to patient. Malvin is contact with [facility] [25] minutes spent on this encounter with >50% of the time in counseling and coordination of care. - ROS Non Response: due to mental status (unreliable ROS) Constitutional: weakness
[2019-11-19 11:15] VITALS: TEMP 96.9
--- NOTE | 2019-11-19 13:44 | DIS ---
DATE OF ADMISSION: 11/05/2019 DATE OF DISCHARGE: 11/19/2019 PRIMARY CARE PROVIDER: Abdi Perez MD DISPOSITION: Discharged home with [facility]. FINAL DIAGNOSES: 1. Acute respiratory failure with hypoxemia. 2. Chronic obstructive pulmonary disease exacerbation. 3. Atrial fibrillation. 4. Coronary artery disease. 5. Recent influenza A. 6. Hypertension. 7. Pneumonia. DISCHARGE MEDICATIONS: 1. Xanax 0.125 mg q.i.d. p.r.n. 2. Cardizem CD 180 daily. 3. DuoNeb 3 mL q.4 hours. 4. Metoprolol 25 mg p.o. b.i.d. 5. Coenzyme Q10 of 200 mg a day. 6. Prednisone 20 mg a day. 7. Magnesium oxide 2 tablets a day. 8. Potassium chloride 10 mEq daily. 9. Brovana nebulizer twice a day. 10. Aspirin 81 mg a day. 11. Multivitamin once a day. 12. Albuterol (ProAir HFA) 2 puffs q.4 hours p.r.n. 13. Pulmicort 0.5 mg inhaled b.i.d. 14. Spiriva 18 mcg inhaled daily. ALLERGIES: FOSAMAX, LIPITOR, PENICILLINS, PRAVASTATIN, " GINETTE'S" CODE STATUS: DNR. PENDING AT TIME OF DISCHARGE: Nothing. DIET: As tolerated. HOSPITAL COURSE: The patient was admitted to the hospital to [facility] to the Hospitalist Service. She presented with acute respiratory failure, influenza A, severe deconditioning. She was intubated in the emergency room, placed on a Cardizem drip, placed on cefepime, vancomycin, DuoNeb, Solu-Medrol. Consultation acutely with Dr. Eloy Singer, Pulmonology, 11/05/2019. Chest x-ray reveals severe hyperinflation. There also noted diffuse nonspecific infiltrates. Her chest x-ray improved somewhat with diuresis, underlying diagnosis of acute diastolic heart failure. She was tested for COVID, which was negative. Influenza panel was negative for A and B at this time. She had a previous infection. Laboratory data; white cell count 9.6, hemoglobin 10.6. Chemistries; sodium 137, potassium 4.9, CO2 is 33, BUN 23, creatinine 0.7. Troponin 0.1, 0.087. BNP 1598. TSH was 0.36. The patient was treated aggressively for acute diastolic heart failure; chronic obstructive pulmonary disease with DuoNebs, steroids, etc. On 11/08/2019, enteral nutrition had been started. Serial chest x-rays were done, which continued to confirm severe hyperinflation. On 11/13/2019, she was seen in consultation by Dr. Yobany Young, Cardiology. At that time, she was continued on the amiodarone, that has been ordered as IV. She was given low-dose Eliquis at that time. On 11/17/2019, she was seen by Sita Harmon, Palliative Care. Dr. Guru Regalado did an advance planning consultation. Decision made was to transition to home health with hospice per [facility]. Code status of DNAR was confirmed. Presently, the patient's vital signs; blood pressure 80-90 systolic, respiratory rate 20, O2 sats are currently 98 to 100 on oxygen supplementation. Chest reveals diffuse coarse breath sounds with scattered rhonchi. Current chest x-ray was reviewed. Blood cultures were negative. Current laboratory; sodium 142, potassium 4.4, CO2 is 37, BUN 32, creatinine 0.59. Hemoglobin 8.8. As mentioned before, the patient is being transitioned to home on hospice. She is DNAR. Follow up per Hospice and Dr. Abdi Perez. Job ID: [id number]
--- NOTE | 2019-11-19 14:11 | PRG ---
DATE OF SERVICE: 11/19/2019 SUBJECTIVE: Ms. Zamora is seen early this morning. She still declines to wear BiPAP. She is on her nasal cannula oxygen. She is in no distress. OBJECTIVE: VITAL SIGNS: Stable. She is afebrile, heart rates in the 70s, respiratory rates in the 20s, blood pressure 92/59. LUNGS: Unchanged. HEART: Unchanged. ABDOMEN: Unchanged. EXTREMITIES: She has no lower extremity edema. NEUROLOGIC: She remains very weak. Ordered hemoglobin this morning, it is 8.8, fortunately, so she does not need any more blood. She will remain off her anticoagulants. Hopefully, she will be discharged home today when oxygen gets arranged. Job ID: [id number]
== END 2019-11-19 14:15 | disposition hospice, home (50) | DRG 870 ==
LOC: ERS 07:26 → CCU 11:15 → IMCU/EMU 11-13 21:34
PROVIDERS: ADMIT Internal Medicine; ATTEND Internal Medicine
PROC: 5A1955Z Respiratory Ventilation, Greater than 96 Consecutive Hours (ICD-10-PCS; principal; 2019-11-05)
PROC: 3E033XZ Introduction of Vasopressor into Peripheral Vein, Percutaneous Approach (ICD-10-PCS; 2019-11-05)
PROC: 02HV33Z Insertion of Infusion Device into Superior Vena Cava, Percutaneous Approach (ICD-10-PCS; 2019-11-05)
PROC: 0BH17EZ Insertion of Endotracheal Airway into Trachea, Via Natural or Artificial Opening (ICD-10-PCS; 2019-11-05)
PROC: 8E0ZXY6 Isolation (ICD-10-PCS; 2019-11-05)
PROC: 30233N1 Transfusion of Nonautologous Red Blood Cells into Peripheral Vein, Percutaneous Approach (ICD-10-PCS; 2019-11-18)
DX: A41.89 Other specified sepsis (principal); J10.00 Influenza due to other identified influenza virus with unspecified type of pneumonia; I50.33 Acute on chronic diastolic (congestive) heart failure; J96.21 Acute and chronic respiratory failure with hypoxia; J96.22 Acute and chronic respiratory failure with hypercapnia; J44.1 Chronic obstructive pulmonary disease with (acute) exacerbation; J44.0 Chronic obstructive pulmonary disease with (acute) lower respiratory infection; E44.1 Mild protein-calorie malnutrition; Z68.1 Body mass index [BMI] 19.9 or less, adult; K92.2 Gastrointestinal hemorrhage, unspecified; Z66 Do not resuscitate; Z51.5 Encounter for palliative care; I25.10 Atherosclerotic heart disease of native coronary artery without angina pectoris; I11.0 Hypertensive heart disease with heart failure; I48.0 Paroxysmal atrial fibrillation; E86.9 Volume depletion, unspecified; Z90.710 Acquired absence of both cervix and uterus; Z87.891 Personal history of nicotine dependence; Z88.0 Allergy status to penicillin; Z88.5 Allergy status to narcotic agent; Z88.8 Allergy status to other drugs, medicaments and biological substances; Z99.81 Dependence on supplemental oxygen; Z91.048 Other nonmedicinal substance allergy status; Z79.51 Long term (current) use of inhaled steroids; Z79.52 Long term (current) use of systemic steroids; Z79.899 Other long term (current) drug therapy; Z79.82 Long term (current) use of aspirin; Z79.01 Long term (current) use of anticoagulants; D64.9 Anemia, unspecified
CPT/HCPCS: 31500; 36415; 36430; 36556; 51702; 71045; 74018; 80048; 80053; 80202; 81003; 81015; 82553; 82805; 83605; 83735; 83880; 84100; 84443; 84484; 85014; 85018; 85025; 86850; 86900; 86901; 87040; 87633; 87804; 93005; 93306; 93798; 94002; 94003; 94640; 94660; 96365; 96366; 96367; 96368; 96375; 99292; J0282; J0692; J1160; J1650; J1940; J2060; J2270; J2704; J2920; J2930; J3010; J3370; J3480; J3490; J7050; J7070; J7512; J7620; J7626; P9016; S0028; U0001